=== PATIENT | male | born 1975 | race Caucasian/White ===

== ENCOUNTER 2020-01-22 13:06 | Emergency (ER) | payer OTHER, SELFPAY ==
[2020-01-22 14:01] VITALS: BP 112/80; PULSE 65; RESP 20; TEMP 36.8; O2SAT 99; BMI 29.5
--- NOTE | 2020-01-22 14:30 | HMH.EDUTC ---
[facility] Disposition Clinical Impression: Hordeolum externum (stye) Qualifiers: Laterality: left Eyelid: upper Qualified Code(s): H00.014 - Hordeolum externum left upper eyelid Disposition: Home, Self-Care Condition on Discharge: Good Instructions: Hordeolum, DI for Hordeolum Additional Instructions: Go straight to [facility] and call when you are in the parking lot they are going to work you in Return if needed Further treatment and instructions per [facility] Referrals: Olga Eden [Primary Care Provider] - As needed [facility] [Other] (Go straight to CLinic and call when you get there) Time of Disposition: 14:45 Medical Decision Making - Abilio Inquiry Pt receiving controlled substance: No Abilio was queried for this patient: No Vital Signs: 01/22/20 14:01 Temperature 98.2 F Temperature Source Oral Pulse Rate [Right Brachial] 65 Respiratory Rate 20 Blood Pressure [Right Arm] 112/80 Blood Pressure Mean [Right Arm] 90 Blood Pressure Source [Right Arm] Automatic Cuff Blood Pressure Position [Right Arm] Sitting 02 Sat by Pulse Oximetry 99 Oxygen Delivery Method Room Air - Physician Consults Physician Consulted: Ayleen Time: 14:38 Reason -: Opthalmology Eval/Care Comment/Response: Spoke with Staff and they advised him to come on down clin. and they would work him in [facility] HPI - General Stated complaint: left eye pain Time Seen by Provider: 01/22/20 14:30 Mode of Arrival: Ambulatory Source of Information: Patient Limitations: No Limitations Description of Symptoms (Recalled from Triage Doc. by RN): PATIENT C/O SWELLING TO LEFT EYE FOR APPROX 1 MONTH, HAS GOTTEN PROGRESSIVELY WORSE HEENT Symptoms (Recalled from RN notes): Yes Resp Symptoms (Recalled from RN notes): No Skin Symptoms (Recalled from RN notes): No MS Symptoms (Recalled from RN notes): No Functional Status (Recalled from RN notes): WNL - History of Present Illness Provider Complaint: Patient states that he has been having swelling on and off in his left eyelid for about a month States that he has been using warm compresses and cleaning eye with warm water and baby shampoo but hasnt helped States that today it looked more swollen so he came in to get it checked - Related Data Home Medications Medication Instructions Recorded Confirmed Gabapentin [Gabapentin 300mg Cap] 300 mg PO BID 01/22/20 01/22/20 Meclizine HCl 25 mg PO DAILYP PRN 01/22/20 01/22/20 Sertraline HCl [Zoloft 100mg 100 mg PO DAILY 01/22/20 01/22/20 tablet] Zolpidem Tartrate [Ambien 10mg 10 mg PO HS 01/22/20 01/22/20 tablet] Allergies Allergy/AdvReac Type Severity Reaction Status Date / Time No Known Allergies Allergy Verified 01/22/20 14:09 - Worker's Comp Is this a Worker's Comp case?: No [facility] History - Hepatitis A Screen Drug use history?: No High risk sexual behaviors?: No History of sexually transmitted infection?: No Currently employed?: No Childcare worker?: No Do you have indoor plumbing?: Yes Do you have electricity?: Yes Attestation statement:: This patient has been screened for Hepatitis A risk factors. I have reviewed the patient's past medical history: Yes - Social History Alcohol Intake: never Occupational Status: other ROS Obtained: Yes All systems reviewed & no additional complaints, Yes Systems reviewed as appropriate & no additional complaints - Eyes Eyes: Reports other (Pain and swelling in left eyelid) Physical Exam - General General appearance: alert, in no apparent distress - Eye Eye exam: Present: other (Swelling and redness noted in left eyelid like that commonly seen with Hordeolum) - Respiratory Respiratory exam: Present: normal lung sounds bilaterally. Absent: respiratory distress - Cardiovascular Cardiovascular exam: Present: regular rate, normal rhythm. Absent: JVD - Abdominal Exam Abdominal exam: Present: soft, normal bowel sounds. Absent: distention, tende
[2020-01-22 14:45] VITALS: BP 112/80; PULSE 65; RESP 20; TEMP 36.8; O2SAT 99
== END 2020-01-22 14:50 | disposition home or self-care (01) ==
PROVIDERS: Emergency Provider Nurse Practitioner; PCP Internal Medicine
DX: H00.014 Hordeolum externum left upper eyelid (principal)
CPT/HCPCS: 99201

== ENCOUNTER 2024-11-13 17:03 | Emergency (ER) | payer OTHER, SELFPAY ==
[2024-11-13 17:48] VITALS: BP 135/88; PULSE 66; RESP 17; TEMP 37.2; O2SAT 99; BMI 29.8
--- NOTE | 2024-11-13 17:52 | XR_ITS ---
PROCEDURE INFORMATION: Exam: XR Left Ankle Exam date and time: 11/13/2024 6:21 PM Age: 49 years old Clinical indication: Injury or trauma; Fall; Sprain or strain; Ankle; Left; Additional info: Pain after fall TECHNIQUE: Imaging protocol: Radiologic exam of the left ankle. Views: 3 or more views. COMPARISON: No relevant prior studies available. FINDINGS: Bones/joints: Posterior malleolus fracture of the tibia with approximately 1.7 mm of displacement. Soft tissues: Moderate soft tissue swelling of the ankle. IMPRESSION: Posterior malleolus fracture of the tibia with approximately 1.7 mm of displacement.
--- OUTSIDE RECORDS SUMMARY | 2024-11-13 17:56 | XMS_ITS | Encounter Summary ---
Author Name [facility] [place] [facility] [facility] [place] Address [address] [place] [address] Care Team Providers Care Heel Trimmer Name Role Phone ANAMICHAEL ERIK Primary Care Provider Unavailabl e OLGA EDEN Primary Care Provider Unavailabl e Selected Encounter This section includes the information on record at [place] for the Encounter. Date/Time Encounter Type Encounter Description Reason Pro vider Source Nov 03, 2024 10:30 AM Outpatient Encounter PRIMARY CARE/MEDICINE IHE Encounter Template Text not used by [place] Plan of Treatment: Future Appointments (+ 6 months) and Future Tests (+/- 45 days) The Plan of Treatment section includes future care activities for the patient from all [place] treatmentfacilities. This section includes future appointments and future orders which are active, pending or scheduled. Future Appointments This section includes appointments that were scheduled to occur 6 months from the date of the Encounter, up to a maximum of 20 appointments. The data comes from all [place] treatment facilities. Appointment Date/Time Appointment Type Appointme nt Facility Name November 27, 2024 04:00 PM AMBULATORY - MEDICINE [facility] Social History: Smoking Status (Most current) and Tobacco Use (All prior to encounter date) This section includes the most current, and the historical, smoking and tobacco- related health factors from the [place] facility where the Encounter took place. Current Smoking Status This section includes the most current smoking, or tobacco-related health factor, from the [place] facility where the Encounter took place. Date/Time Current Smoking Status Comment Dean ity November 22, 2022 08:00 AM VA-TOBACCO FORMER USER [facility] Tobacco Use History This section includes a history of the smoking, or tobacco-related health factors, that were collected on or before the date of the Encounter. The data comes from the [place] facility where the Encounter took place. Date/Time Smoking Status/Tobacco Use Comment F acmarcos November 22, 2022 08:00 AM VA-TOBACCO QUIT 5 TO < 15 YRS [facility] Dec 09, 2021 02:30 PM VA-TOBACCO FORMER USER [facility] Dec 09, 2021 02:30 PM VA-TOBACCO QUIT 5 TO < 15 YRS [facility] Sep 01, 2019 09:42 AM VA-TOBACCO FORMER USER [facility] Sep 01, 2019 09:42 AM VA-TOBACCO QUIT 5 TO < 15 YRS [facility] Encounter Notes: All associated encounter notes This section contains the clinical notes associated to the Encounter. Date/Time Encounter Note(s) Provider Source Nov 03, 2024 11:42 AM NURSING NOTE: LOCAL TITLE: NURSING NOTE STANDARD TITLE: NURSING NOTE DATE OF NOTE: NOV 03, 2024@11:42 ENTRY DATE: NOV 03, 2024@11:42:33 AUTHOR: SONIA MOORE EXP COSIGNER: URGENCY: STATUS: COMPLETED Yes - [facility]/Caregiver verbalized understanding of topics discussed and education provided [facility] arrived late, and stated he could not be seen at 1300. stated he would r/s appt online. made aware. Please f/u with to r/s recall appt. /shahida/ SONIA MOORE Licensed Practical Nurse Signed: 11/03/2024 11:43 Receipt Acknowledged By: 11/05/2024 07:41 /shahida/ MASON REYEZ ADVANCED ASSEMBLER [facility] 11/03/2024 12:18 /es/ Olga Eden MD Primary Care Physician SONIA MOORE [facility]
--- OUTSIDE RECORDS SUMMARY | 2024-11-13 17:56 | XMS_ITS | Encounter Summary ---
Author Name [facility] [place] [facility] [place] [facility] [place] Address [address] [place] [address] Care Team Providers Care Searchlight Operator Name Role Phone ANAMICHAEL ERIK Primary Care Provider Unavailabl e HERMAN PECK Primary Care Provider Unavailabl e Selected Encounter This section includes the information on record at [place] for the Encounter. Date/Time Encounter Type Encounter Description Reason Pro vider Source Sep 17, 2024 10:08 AM Outpatient Encounter ADMIN PAT ACTIVTIES (MASNONCT) IHE Encounter Template Text not used by [place] Plan of Treatment: Future Appointments (+ 6 months) and Future Tests (+/- 45 days) The Plan of Treatment section includes future care activities for the patient from all [place] treatmentfacilities. This section includes future appointments and future orders which are active, pending or scheduled. Future Appointments This section includes appointments that were scheduled to occur 6 months from the date of the Encounter, up to a maximum of 20 appointments. The data comes from all [place] treatment facilities. Appointment Date/Time Appointment Type Appointme nt Facility Name November 27, 2024 04:00 PM AMBULATORY - MEDICINE [facility] Encounter Notes: All associated encounter notes This section contains the clinical notes associated to the Encounter. Date/Time Encounter Note(s) Provider Source Sep 17, 2024 10:08 AM ADMINISTRATIVE NOT E: LOCAL TITLE: CLERICAL/ADMIN NOTE STANDARD TITLE: ADMINISTRATIVE NOTE DATE OF NOTE: SEP 17, 2024@10:08 ENTRY DATE: SEP 17, 2024@10:08:13 AUTHOR: MASON REYEZ EXP COSIGNER: URGENCY: STATUS: COMPLETED Called and scheduled pt for due recall with pcp. Pt wanted 4-14@1330 /es/ MASON REYEZ ADVANCED BUSINESS MACHINE MECHANIC Signed: 09/17/2024 10:11 MASON REYEZ-MELANIE [facility]
--- OUTSIDE RECORDS SUMMARY | 2024-11-13 17:56 | XMS_ITS | Encounter Summary ---
Author Name [facility] [facility] [place] [facility] [place] Address [address] [place] [address] Care Team Providers Care Energy Project Engineer Name Role Phone ANAERIK RODRIGUEZ Primary Care Provider Unavailabl HERMAN Walton Primary Care Provider Unavailabl carlos Selected Encounter This section includes the information on record at [place] for the Encounter. Date/Time Encounter Type Encounter Description Reason Pro vider Source Feb 13, 2024 02:41 PM Outpatient Encounter DENTAL IHE Encounter Template Text not used by [place] Plan of Treatment: Future Appointments (+ 6 months) and Future Tests (+/- 45 days) The Plan of Treatment section includes future care activities for the patient from all [place] treatmentfacilities. This section includes future appointments and future orders which are active, pending or scheduled. Future Appointments This section includes appointments that were scheduled to occur 6 months from the date of the Encounter, up to a maximum of 20 appointments. The data comes from all [place] treatment facilities. Appointment Date/Time Appointment Type Appointme nt Facility Name Jun 11, 2024 01:15 PM AMBULATORY - MEDICINE PSYCHIATRIC Active, Pending, and Scheduled Orders This section includes a listing of several types of active, pending, and scheduled orders, including clinic medications orders, diagnostic test orders, procedure orders and consult orders; where the start date of the order is 45 days before the date of the Encounter or 45 days after the date of theEncounter. The data comes from all [place] treatment facilities. Test Date/Time Test Type Test Details Facility Name Feb 20, 2024 12:00 AM Laboratory - Chemi stry Order OCCULT BLOOD FIT X1 SCREEN STOOL FECES SP ONCE [facility] Lab Results: +/- 30 days of the encounter This section includes the Chemistry and Hematology Lab Results on record with [place] for the patient. Radiology Reports and Pathology Reports are provided separately, in subsequent sections. Lab Results This section contains the Chemistry/Hematology Results that were resulted 30 days before or 30 daysafter the date of the Encounter. Date/Time Source Result Type Result - Unit Interpretation Reference Range Specimen Type Comment Feb 07, 2024 11:13 AM [facility] DRUG SCREEN IN-HOUSE ROUTINE URINE Specimen T ype: URINE Comment: Screening method results are unconfirmed and are for medical use only. Unconfirmed screening results must not be used for non-medical purposes. Opiates test most sensitive for morphine, codeine and heroin and less sensitive for hydrocodone and hydromorphone where higher concentrations are needed for cut-off detection. Ordering Provider: JAROCHO PENA Report Released Date/Time: Feb 06, 2024 08:48 AM Reporting Lab: [address] [id number] Performing Lab: [address] [address] TETRAHYDROCANNABINOL SCREEN POS AMPHETAMINE SCR NEG BARBITURATES SCR NEG BENZODIAZEPINES SCR NEG COCAINE METABOLITE SCR NEG OPIATES SCR NEG METHADONE SCR NEG OXYCODONE SCR NEG Social History: Smoking Status (Most current) and Tobacco Use (All prior to encounter date) This section includes the most current, and the historical, smoking and tobacco- related health factors from the [place] facility where the Encounter took place. Current Smoking Status This section includes the most current smoking, or tobacco-related health factor, from the [place] facility where the Encounter took place. Date/Time Current Smoking Status Comment Facil ity November 22, 2022 08:00 AM VA-TOBACCO FORMER USER [facility] Tobacco Use History This section includes a history of the smoking, or tobacco-related health factors, that were collected on or before the date of the Encounter. The data comes from the [place] facility where the Encounter took place. Date/Time Smoking Status/Tobacco Use Comment F acility November 22, 2022 08:00 AM VA-TOBACCO QUIT 5 TO < 15 YRS [facility] Dec 09, 2021 02:30 PM VA-TOBACCO FORMER USER [facility] Dec 09, 2021 02:30 PM VA-TOBACCO QUIT 5 TO < 15 YRS [facility] Sep 01, 2019 09:42 AM VA-TOBACCO FORMER USER [facility] Sep 01, 2019 09:42 AM VA-TOBACCO QUIT 5 TO < 15 YRS [facility] Encounter Notes: All associated encounter notes This section contains the clinical notes associated to the Encounter. Date/Time Encounter Note(s) Provider Source Feb 13, 2024 02:41 PM LETTERS: LOCAL TITLE: SPECIALTY CONTACT LETTER STANDARD TITLE: LETTERS DATE OF NOTE: FEB 13, 2024@14:41 ENTRY DATE: FEB 13, 2024@14:41:16 AUTHOR: BOLA RICHARDS COSIGNER: URGENCY: STATUS: COMPLETED [facility] [address] [place] [address] KAYA HEWITT [address] [address] FEB 13, 2024 Dear KAYA HEWITT III, We have been unable to contact you by telephone to schedule an appointment in our Dental clinic. Your health and well-being are important to us. Please call us at or . Select Option #2 and then #3. We look forward to hearing from you soon. Sincerely yours, Dental [facility] RICHARDS [facility]
--- OUTSIDE RECORDS SUMMARY | 2024-11-13 17:56 | XMS_ITS | Encounter Summary ---
Author Name [facility] [place] [facility] [place] [facility] [place] [facility] [place] Address [address] [place] [address] Care Team Providers Care Silk Printer Name Role Phone ANAMICHAEL ERIK Primary Care Provider Unavailabl e OLGA EDEN Primary Care Provider Unavailabl e Selected Encounter This section includes the information on record at [place] for the Encounter. Date/Time Encounter Type Encounter Description Reason Pro vider Source Oct 08, 2024 01:46 PM Outpatient Encounter ADMIN PAT ACTIVTIES (MASNONCT) IHE Encounter Template Text not used by [place] Plan of Treatment: Future Appointments (+ 6 months) and Future Tests (+/- 45 days) The Plan of Treatment section includes future care activities for the patient from all [place] treatmentfacilities. This section includes future appointments and future orders which are active, pending or scheduled. Future Appointments This section includes appointments that were scheduled to occur 6 months from the date of the Encounter, up to a maximum of 20 appointments. The data comes from all [place] treatment facilities. Appointment Date/Time Appointment Type Appointme nt Facility Name November 27, 2024 04:00 PM AMBULATORY - MEDICINE [facility] Encounter Notes: All associated encounter notes This section contains the clinical notes associated to the Encounter. Date/Time Encounter Note(s) Provider Source Oct 08, 2024 01:46 PM PHARMACY MEDICATIO N MGT NOTE: LOCAL TITLE: CONTROLLED SUBSTANCE RENEWAL REQUEST STANDARD TITLE: PHARMACY MEDICATION MGT NOTE DATE OF NOTE: OCT 08, 2024@13:46 ENTRY DATE: OCT 08, 2024@13:46:09 AUTHOR: BEATRICE SMITH EXP COSIGNER: URGENCY: STATUS: COMPLETED Rx requested - ZOLPIDEM TARTRATE 10MG TAB Last fill date - 08.16.24 Progress Note Date Title Author (and Author's Title) SEP 24, 2023@13:24 PC PROGRESS NOTE OLGA EDEN (PRIMARY CARE ST TRAV/PDMP Progress Note Date Title Author (and Author's Title) SEP 12, 2024@10:21:45STATE PRESCRIPTION ROLANDO OLGA EDEN (PRIMARY CARE ST No data available for: NALOXONE NALOXONE AUTOINJECTOR IM RESCUE NALOXONE NASAL RESCUE 4MG NALOXONE NASAL RESCUE 8MG NALOXONE NASAL RESCUE Mail ID signer [facility] alert sent to OLGA EDEN, Primary Care Provider Comments: DRUG SCREEN: ONLY Drug Screens within the prior 12 months will be listed Drug Screen: Collection DT Specimen Test Name Result Units Ref Range 02/07/2024 11:13 URINE !! THC SCR POS Ref: Cutoff < 50 02/07/2024 11:13 URINE !! AMPHETAMINE SCR NEG Ref: Cutoff < 1000 02/07/2024 11:13 URINE !! BARBITURATES SCR NEG Ref: Cutoff < 200 02/07/2024 11:13 URINE !! BENZODIAZEPINES S NEG Ref: Cutoff < 200 02/07/2024 11:13 URINE !! COCAINu NEG Ref: Cutoff < 300 02/07/2024 11:13 URINE !! OPIATES SCR NEG Ref: Cutoff < 300 02/07/2024 11:13 URINE !! METHADONE SCR NEG Ref: Cutoff < 300 02/07/2024 11:13 URINE !! OXYCODONE SCR NEG Ref: Cutoff < 200 !! Indicates COMMENTS AVAILABLE...Refer to Interim Lab Report. /shahida/ Beatrice Smith CPhT Pharmacy Non Destructive Testing Scientist Signed: 10/08/2024 13:46 Receipt Acknowledged By: 10/08/2024 14:02 /shahida/ Olga Eden MD Primary Care Physician BEATRICE SMITH-Marilee [facility]
--- OUTSIDE RECORDS SUMMARY | 2024-11-13 17:56 | XMS_ITS | Encounter Summary ---
Author Name [facility] [place] [facility] [place] Address [address] [place] [address] Care Team Providers Care Tricot Knitter Name Role Phone ANAMICHAEL ERIK Primary Care Provider Unavailabl e OLGA EDEN Primary Care Provider Unavailabl e Selected Encounter This section includes the information on record at [place] for the Encounter. Date/Time Encounter Type Encounter Description Reason Provider Source December 05, 2023 02:30 PM EXTRACTION ERUPTED TOOTH/EXR DENTAL ICD-10-CM K02.53 Dental caries on pit and fissure surface penetrat into pulp GALECIO VERA,DANTE IHE Encounter Template Text not used by [place] Assessments - Encounter Diagnoses This section includes the primary and secondary diagnoses documented for the Encounter. Date/Time Primary/Secondary Diagnosis Diagnosis Name Provider Source December 05, 2023 03:33 PM PRIMARY Dental caries on pit and fissure surface penetrat into pulp GALECIO VERA,DANTE [facility] Plan of Treatment: Future Appointments (+ 6 months) and Future Tests (+/- 45 days) The Plan of Treatment section includes future care activities for the patient from all [place] treatmentfacilities. This section includes future appointments and future orders which are active, pending or scheduled. Future Appointments This section includes appointments that were scheduled to occur 6 months from the date of the Encounter, up to a maximum of 20 appointments. The data comes from all [place] treatment facilities. Appointment Date/Time Appointment Type Appointme nt Facility Name Feb 11, 2024 03:00 PM AMBULATORY - NONE [facility] Vital Signs: All taken on the encounter date This section contains inpatient and outpatient Vital Signs collected on the date of the Encounter. Date/Time Temperature Pulse Blood Pressure Respiratory Rate SP02 Pain Height Weight Body Mass Index Source December 05, 2023 03:31 PM 67 113/92 98 [place] [facility] Social History: Smoking Status (Most current) and Tobacco Use (All prior to encounter date) This section includes the most current, and the historical, smoking and tobacco- related health factors from the [place] facility where the Encounter took place. Current Smoking Status This section includes the most current smoking, or tobacco-related health factor, from the [place] facility where the Encounter took place. Date/Time Current Smoking Status Comment Facil ity November 22, 2022 08:00 AM VA-TOBACCO FORMER USER [facility] Tobacco Use History This section includes a history of the smoking, or tobacco-related health factors, that were collected on or before the date of the Encounter. The data comes from the [place] facility where the Encounter took place. Date/Time Smoking Status/Tobacco Use Comment F acility November 22, 2022 08:00 AM VA-TOBACCO QUIT 5 TO < 15 YRS [facility] Dec 09, 2021 02:30 PM VA-TOBACCO FORMER USER [facility] Dec 09, 2021 02:30 PM VA-TOBACCO QUIT 5 TO < 15 YRS [facility] Sep 01, 2019 09:42 AM VA-TOBACCO FORMER USER [facility] Sep 01, 2019 09:42 AM VA-TOBACCO QUIT 5 TO < 15 YRS [facility] Encounter Notes: All associated encounter notes This section contains the clinical notes associated to the Encounter. Date/Time Encounter Note(s) Provider Source Feb 21, 2024 12:41 PM ACCOUNTING OF DISC LOSURES NOTE: LOCAL TITLE: STATE PRESCRIPTION DRUG MONITORING PROGRAM STANDARD TITLE: ACCOUNTING OF DISCLOSURES NOTE DATE OF NOTE: FEB 21, 2024@12:41:54 ENTRY DATE: FEB 21, 2024@12:41:54 AUTHOR: EDEN,OLGA K EXP COSIGNER: URGENCY: STATUS: COMPLETED This PDMP query was submitted by Olga Eden MD. The clinical justification for this PDMP query is to review controlled substances prescribed outside of the [facility], and any additional information that may become available, as an important component of standard clinical care, and in accordance with [facility] policy. Patient information was shared with the PDMP Appriss [place]. No prescription(s) for controlled substances outside the [facility] were found in the last 90 days. 02/12/2024 2 02/08/2024 Zolpidem Tartrate 10 Mg Tablet 10.00 10 Vi Pat [id number] [place] (0086) 0 - [place] 01/08/2024 2 01/04/2024 Zolpidem Tartrate 10 Mg Tablet 30.00 30 [place] [id number] [place] (0086) 0 - [place] 12/07/2023 2 10/08/2023 Zolpidem Tartrate 10 Mg Tablet 30.00 30 Na Mul [id number] [place] (0086) 0 - [place] 10/23/2023 2 10/08/2023 Zolpidem Tartrate 10 Mg Tablet 30.00 30 Na Mul [id number] [place] (0086) 0 - [place] 10/10/2023 2 10/08/2023 Zolpidem Tartrate 10 Mg Tablet 30.00 30 Na Mul [id number] [place] (0086[place] - [place] 08/10/2023 2 04/03/2023 Zolpidem Tartrate 10 Mg Tablet 30.00 30 Na Mul [id number] [place] (0086) 0 - [place] 07/28/2023 2 04/03/2023 Zolpidem Tartrate 10 Mg Tablet 30.00 30 Na Mul [id number] [place] (0086[place] - [place] 07/04/2023 2 04/03/2023 Zolpidem Tartrate 10 Mg Tablet 30.00 30 Na Mul [id number] [place] (0086) [place] - [place] 05/28/2023 2 04/03/2023 Zolpidem Tartrate 10 Mg Tablet 30.00 30 Na Mul [id number] [place] (0086[place] - [place] 04/17/2023 2 04/03/2023 Zolpidem Tartrate 10 Mg Tablet 30.00 30 Na Mul [id number] [place] (0086) [place] - [place] 04/04/2023 2 04/03/2023 Zolpidem Tartrate 10 Mg Tablet 30.00 30 Na Mul [id number] [place] (0086) [place] - [place] 03/06/2023 2 10/05/2022 Zolpidem Tartrate 10 Mg Tablet 30.00 30 Na Mul [id number] [place] (0086[place] - [place] 01/16/2023 2 10/05/2022 Zolpidem Tartrate 10 Mg Tablet 30.00 30 Na Mul [id number] [place] (0086) [place] - [place] 12/15/2022 2 10/05/2022 Zolpidem Tartrate 10 Mg Tablet 30.00 30 Na Mul [id number] [place] (0086[place] 12/05/2022 2 10/05/2022 Zolpidem Tartrate 10 Mg Tablet 30.00 30 Na Mul [id number] [place] (0086[place] - [place] 10/17/2022 2 10/05/2022 Zolpidem Tartrate 10 Mg Tablet 30.00 30 Na [facility] [id number] [place] (0086) [place] - [place] 10/09/2022 2 10/05/2022 Zolpidem Tartrate 10 Mg Tablet 30.00 30 Na Mul [id number] [place] (0086[place] 0 - [place] 08/10/2022 2 03/24/2022 Zolpidem Tartrate 10 Mg Tablet 30.00 30 Na Mul [id number] [place] (0086[place] 0 - [place] 07/11/2022 1 03/24/2022 Zolpidem Tartrate 10 Mg Tablet 30.00 30 Na Mul [id number] [place] (0086[place] 0 - [place] 07/06/2022 1 03/24/2022 Zolpidem Tartrate 10 Mg Tablet 30.00 30 Na Mul [id number] [place] (0086) 0 - [place] 05/19/2022 1 03/24/2022 Zolpidem Tartrate 10 Mg Tablet 30.00 30 Na Mul [id number] [place] (0086) 0 - [place] 2022 1 03/24/2022 Zolpidem Tartrate 10 Mg Tablet 30.00 30 Na Mul [id number] [place] (0086) 0 - [place] 03/29/2022 1 03/24/2022 Zolpidem Tartrate 10 Mg Tablet 30.00 30 Na [facility] [id number] [place] (0086) 0 - [place] *Per CDC guidance, the MME conversion factors prescribed or provided as part of the medication-assisted treatment for opioid use disorder should not be used to benchmark against dosage thresholds meant for opioids prescribed for pain. Buprenorphine products have no agreed upon morphine equivalency, and as partial opioid agonists, are not expected to be associated with overdose risk in the same dose-dependent manner as doses for full agonist opioids. MME = morphine milligram equivalents. mg = dose in milligrams. Providers /es/ Olga Eden MD Primary Care Physician Signed: 02/21/2024 12:42 OLGA EDEN [facility] December 05, 2023 03:37 PM CONSENT: LOCAL TITLE: CONSENT CLINICAL SCANNED STANDARD TITLE: CONSENT DATE OF NOTE: DECEMBER 05, 2023@15:37 ENTRY DATE: DEC 10, 2023@15:37:46 AUTHOR: CHAKA EVANS EXP COSIGNER: URGENCY: STATUS: COMPLETED The scanned document may be viewed in [facility]. /shahida/ CHAKA EVANS DRAWING INSTRUCTOR Signed: 12/10/2023 15:38 CHAKA EVANS [facility] December 05, 2023 03:31 PM ORAL SURGERY NOTE: LOCAL TITLE: DENTAL ORAL SURGERY NOTE STANDARD TITLE: ORAL SURGERY NOTE DATE OF NOTE: DECEMBER 05, 2023@15:31 ENTRY DATE: DECEMBER 05, 2023@15:33:22 AUTHOR: DANTE FERRER EXP COSIGNER: URGENCY: STATUS: COMPLETED Patient Name: KAYA HEWITT III, : 1975, Age: 48 Visit: V: December 05, 2023@14:30 KOBE DEN OS SED LD. Primary PCE Diagnosis: K02.53 (Dental caries on pit and fissure surface penetrating into pulp). Dental Category: 15-OPC, Class IV. Treatment Status: Active. Planned Procedures: Unsequenced (D2330) RESIN ONE SURFACE-ANTERIOR: 6(F). DX: (). (D2330) RESIN ONE SURFACE-ANTERIOR: 7(M). DX: (). (D2331) RESIN TWO SURFACES-ANTERIOR: 9(MF). DX: (). (D2332) RESIN THREE SURFACES-ANTERIO: 8(MFD). DX: (). (D239) POST 1 SRFC RESINBASED CMPST: 29(B). DX: (). (D2391) POST 1 SRFC RESINBASED CMPST: 5(B). DX: (). (D7140) EXTRACTION ERUPTED TOOTH/EXR: 16. DX: (). Completed Care: (D7140) EXTRACTION ERUPTED TOOTH/EXR. Tooth: 20. DX: K02.53 Dental Caries on Pit and Fissure Surface Penetrating into Pulp (D7140) EXTRACTION ERUPTED TOOTH/EXR. Tooth: 18. DX: K02.53 Dental Caries on Pit and Fissure Surface Penetrating into Pulp If indicated, obtained informed consent for the proposed procedure by explaining procedure, alternatives, attendant risks, and potential complications. Gave patient opportunity for questions. The patient was alert and awake. The patient indicated understanding and desire to proceed. The patient further understands that the procedure is being performed for their benefit, and that if teeth are removed the [place] is not necessarily obligated to provide tooth replacements. A witnessed hard copy SP522 was signed by the patient and treating dentist, and placed in the dental record. Appropriate written and/or oral post-operative instructions were provided. Attending: Alli Valles was physically present for the [place] portion of the procedure. Yes Do you have pain today? Yes If yes, on a scale of 0 to 10 what is the pain level now? 5 An assessment identified: Non-restorable grossly carious #18,20 BP: 113/92 Pulse: 67 ACTIVE MEDICATIONS: Medicine/Supplies Qty Last Filled 1) ZOLPIDEM TARTRATE 10MG TAB: TAKE ONE TABLET BY 30 DECEMBER 05, 2023 MOUTH AT BEDTIME NEEDED FOR SLEEP 2) CYANOCOBALAMIN 500MCG TAB: TAKE ONE TABLET BY 100 MAY 02, 2023 MOUTH DAILY FOR VITAMIN B12 SUPPLEMENT 3) GABAPENTIN 300MG CAP: TAKE ONE CAPSULE BY MOUTH 60 NOVEMBER 08, 2023 TWICE A DAY FOR PAIN Active Non-VA Meds ===== NONE Allergies: Patient has answered NKA Reviewed current medications with patient/signficant other, patient/significant other reports patient taking ALL VA, Non VA & OTC medications as listed on CPRS medication tab outpatient section. Procedures: Local Anesthetic utilized for procedure. # carpules: 2 Type: 1.8 ml Lidocaine HCL 2% 1/1:100,000 Epinephrine Simple extractions using elevators and forceps. Curretage sockets. Gelfoam packed, 3-0 chromic gut suture. Gauze pack placed, Post-op instructions given, Patient stable and hemostatic Additional comments: Procedure well tolerated by patient [id number]/99-T - - - - - - - - - - - - - - - - - - - - - - - - - - - - - - /shahida/ DANTE GONZALES [facility] dentist Signed: 12/05/2023 15:33 DANTE FERRER [facility] December 05, 2023 02:51 PM PREPROCEDURE NOTE: LOCAL TITLE: PRE PROCEDURE PROGRESS NOTE STANDARD TITLE: PREPROCEDURE NOTE DATE OF NOTE: DECEMBER 05, 2023@14:51 ENTRY DATE: DECEMBER 05, 2023@14:51:56 AUTHOR: KINJAL DODD COSIGNER: URGENCY: STATUS: COMPLETED History & Physical dated within 30 days Yes Interval/Focus H&P Note within 24 hours of planned procedure N/A Attending note within 30 days N/A Step 1: Consent Form checked for: Patient's Full Name: Yes Procedure Site: Yes Name of Procedure: Yes ext #18 and #20 Reason for Procedure: no Restorable Teeth Per [place] Dentist Step 2: Privileges verified: Yes COMMENTS: Step 2 Done at 2pm Step 3: Operative site marked: Yes Not Applicable COMMENTS: ref to Dental DRM Plus and Dental x-rays Step 4: Patient States: Their Full Name Yes Full SSN or Date of Yes Site for the Procedure Yes Step [address] Carson at 2:47pm Warm Handoff communicated to N/A, RN. Time: /shahida/ KINJAL DODD Dental Wire Winding Machine Operator Signed: 12/05/2023 14:54 KINJAL DODD [facility]
--- OUTSIDE RECORDS SUMMARY | 2024-11-13 17:56 | XMS_ITS ---
Author Name [facility] [place] Organization [facility] [place] [place] Address [address] [place] [address] Care Team Providers Care Vortex Operator Name Role Phone ANAMICHAEL ERIK Primary Care Provider Unavailabl e OLGA EDEN Primary Care Provider Unavailabl e Selected Encounter This section includes the information on record at [place] for the Encounter. Date/Time Encounter Type Encounter Description Reason Pro vider Source May 12, 2024 06:05 AM Outpatient Encounter ADMIN PAT ACTIVTIES (MASNONCT) IHE Encounter Template Text not used by [place] Plan of Treatment: Future Appointments (+ 6 months) and Future Tests (+/- 45 days) The Plan of Treatment section includes future care activities for the patient from all [place] treatmentfacilities. This section includes future appointments and future orders which are active, pending or scheduled. Future Appointments This section includes appointments that were scheduled to occur 6 months from the date of the Encounter, up to a maximum of 20 appointments. The data comes from all [place] treatment facilities. Appointment Date/Time Appointment Type Appointme nt Facility Name Jun 11, 2024 01:15 PM AMBULATORY - MEDICINE [facility] Encounter Notes: All associated encounter notes This section contains the clinical notes associated to the Encounter. Date/Time Encounter Note(s) Provider Source May 12, 2024 06:05 AM PHARMACY MEDICATIO N MGT NOTE: LOCAL TITLE: CONTROLLED SUBSTANCE RENEWAL REQUEST STANDARD TITLE: PHARMACY MEDICATION MGT NOTE DATE OF NOTE: MAY 12, 2024@06:05 ENTRY DATE: MAY 12, 2024@06:05:59 AUTHOR: BOB OBRIEN EXP COSIGNER: URGENCY: STATUS: COMPLETED Rx requested - zolpidem Last fill date - 04/11/24 Progress Note Date Title Author (and Author's Title) SEP 24, 2023@13:24 PC PROGRESS NOTE OLGA EDEN (PRIMARY CARE ST TRAV/PDMP Progress Note Date Title Author (and Author's Title) MAR 11, 2024@08:43:35STATE PRESCRIPTION ROLANDO OLGA EDEN (PRIMARY CARE ST [...] COMMENTS AVAILABLE...Refer to Interim Lab Report. /shahida/ BOB OBRIEN CLINICAL PROCESS PLANT OPERATOR Signed: 05/12/2024 06:06 Receipt Acknowledged By: 05/12/2024 09:00 /shahida/ Olga Eden MD Primary Care Physician [facility]EN[facility]
--- NOTE | 2024-11-13 17:57 | PC.NURSE ---
pt rounded on no needs at this time.
--- OUTSIDE RECORDS SUMMARY | 2024-11-13 17:57 | XMS_ITS | Encounter Summary ---
Author Name [facility] [place] [facility] [place] Organization [facility] [place] Address [address] [place] [address] Care Team Providers Care Anglesmith Name Role Phone ANAMICHAEL ERIK Primary Care Provider Unavailabl e HERMAN PECK Primary Care Provider Unavailabl e Selected Encounter This section includes the information on record at [place] for the Encounter. Date/Time Encounter Type Encounter Description Reason Pro vider Source Mar 31, 2024 12:19 PM Outpatient Encounter ADMIN PAT ACTIVTIES (MASNONCT) IHE Encounter Template Text not used by [place] Plan of Treatment: Future Appointments (+ 6 months) and Future Tests (+/- 45 days) The Plan of Treatment section includes future care activities for the patient from all [place] treatmentfacilities. This section includes future appointments and future orders which are active, pending or scheduled. Future Appointments This section includes appointments that were scheduled to occur 6 months from the date of the Encounter, up to a maximum of 20 appointments. The data comes from all [place] treatment facilities. Appointment Date/Time Appointment Type Appointme nt Facility Name Jun 11, 2024 01:15 PM AMBULATORY - MEDICINE [facility] Active, Pending, and Scheduled Orders This section includes a listing of several types of active, pending, and scheduled orders, including clinic medications orders, diagnostic test orders, procedure orders and consult orders; where the start date of the order is 45 days before the date of the Encounter or 45 days after the date of theEncounter. The data comes from all [place] treatment facilities. Test Date/Time Test Type Test Details Facility Name Feb 20, 2024 12:00 AM Laboratory - Chemi stry Order OCCULT BLOOD FIT X1 SCREEN STOOL FECES SP ONCE [facility] Encounter Notes: All associated encounter notes This section contains the clinical notes associated to the Encounter. Date/Time Encounter Note(s) Provider Source Mar 31, 2024 12:19 PM PHARMACY NOTE: LOCAL TITLE: SIGNATURE READY PHARMACY RENEWAL NOTE STANDARD TITLE: PHARMACY NOTE DATE OF NOTE: MAR 31, 2024@12:19 ENTRY DATE: MAR 31, 2024@12:19:43 AUTHOR: GALILEA HALE EXP COSIGNER: URGENCY: STATUS: COMPLETED Signature Ready Order Progress Note Date Title Author (and Author's Title) SEP 24, 2023@13:24 PC PROGRESS NOTE HERMAN PECK (PRIMARY CARE ST 1) Rx#: [id number] SERTRALINE HCL 100MG TAB Original Prescriber: FRIDA UMANA Pharmacy received request via: Secure Message /shahida/ GALILEA HALE Director Of Product Development (jigger machine operator) Signed: 03/31/2024 12:20 GALILEA HALE[facility]
--- OUTSIDE RECORDS SUMMARY | 2024-11-13 17:57 | XMS_ITS | Encounter Summary ---
Author Name [facility] of [facility] [place] Organization [facility] [place] Address [address] [place] [address] Care Team Providers Care Wool Hat Sanding Machine Operator Name Role Phone ANAMICHAEL ERIK Primary Care Provider Unavailabl e OLGA PECK Primary Care Provider Unavailabl e Selected Encounter This section includes the information on record at [place] for the Encounter. Date/Time Encounter Type Encounter Description Reason Pro vider Source Jun 11, 2024 08:46 PM Outpatient Encounter ADMIN PAT ACTIVTIES (MASNONCT) IHE Encounter Template Text not used by [place] Plan of Treatment: Future Appointments (+ 6 months) and Future Tests (+/- 45 days) The Plan of Treatment section includes future care activities for the patient from all [place] treatmentfacilities. This section includes future appointments and future orders which are active, pending or scheduled. Future Appointments This section includes appointments that were scheduled to occur 6 months from the date of the Encounter, up to a maximum of 20 appointments. The data comes from all [place] treatment facilities. Appointment Date/Time Appointment Type Appointme nt Facility Name November 27, 2024 04:00 PM AMBULATORY - MEDICINE [facility] Encounter Notes: All associated encounter notes This section contains the clinical notes associated to the Encounter. Date/Time Encounter Note(s) Provider Source Jun 11, 2024 08:46 PM PHARMACY MEDICATIO N MGT NOTE: LOCAL TITLE: CONTROLLED SUBSTANCE RENEWAL REQUEST STANDARD TITLE: PHARMACY MEDICATION MGT NOTE DATE OF NOTE: JUN 11, 2024@20:46 ENTRY DATE: JUN 11, 2024@20:46:35 AUTHOR: GALILEA HALE EXP COSIGNER: URGENCY: STATUS: COMPLETED Rx requested - GABAPENTIN 300MG CAP Last fill date - 05/11/24 Progress Note Date Title Author (and Author's Title) SEP 24, 2023@13:24 PC PROGRESS NOTE OLGA PECK (PRIMARY CARE ST TRAV/PDMP Progress Note Date Title Author (and Author's Title) MAY 12, 2024@09:01:48STATE PRESCRIPTION ROLANDO OLGA PECK (PRIMARY CARE ST No data available for: NALOXONE NALOXONE AUTOINJECTOR IM RESCUE NALOXONE NASAL RESCUE 4MG NALOXONE NASAL RESCUE 8MG NALOXONE NASAL RESCUE Mail ID signer VA alert sent to OLGA PECK, Primary Care Provider Comments: DRUG SCREEN: ONLY [...] COMMENTS AVAILABLE...Refer to Interim Lab Report. /shahida/ GALILEA HALE Insulator Helper (attendant child activity) Signed: 06/11/2024 20:46 Receipt Acknowledged By: 06/12/2024 08:38 /shahida/ Olga Peck MD Primary Care Physician GALILEA HALE[facility]
--- OUTSIDE RECORDS SUMMARY | 2024-11-13 17:57 | XMS_ITS | Encounter Summary ---
Author Name [facility] [place] [facility] [place] Organization [facility] [place] Address [address] [place] [address] Care Team Providers Care Ferry Terminal Agent Name Role Phone ANAMICHAEL ERIK Primary Care Provider Unavailabl e OLAG EDEN Primary Care Provider Unavailabl e Selected Encounter This section includes the information on record at [place] for the Encounter. Date/Time Encounter Type Encounter Description Reason Pro vider Source Oct 20, 2024 01:30 PM Outpatient Encounter PRIMARY CARE/MEDICINE I[facility] Encounter Template [...] 27, 2024 04:00 PM AMBULATORY - MEDICINE [facility] Social History: Smoking Status (Most current) and Tobacco Use (All prior to encounter date) This section includes the most current, and the historical, smoking and tobacco- related health factors from the [place] facility where the Encounter took place. Current Smoking Status This section includes the most current smoking, or tobacco-related health factor, from the [place] facility where the Encounter took place. Date/Time Current Smoking Status Comment Dean ity November 22, 2022 08:00 AM VA-TOBACCO FORMER USER [facility] Tobacco Use History This section includes a history of the smoking, or tobacco-related health factors, that were collected on or before the date of the Encounter. The data comes from the [place] facility where the Encounter took place. Date/Time Smoking Status/Tobacco Use Comment F acmarcos November 22, 2022 08:00 AM VA-TOBACCO QUIT 5 TO < 15 YRS [facility] Dec 09, 2021 02:30 PM VA-TOBACCO FORMER USER [facility] Dec 09, 2021 02:30 PM VA-TOBACCO QUIT 5 TO < 15 YRS [facility] Sep 01, 2019 09:42 AM VA-TOBACCO FORMER USER [facility] Sep 01, 2019 09:42 AM VA-TOBACCO QUIT 5 TO < 15 YRS [facility] Encounter Notes: All associated encounter notes This section contains the clinical notes associated to the Encounter. Date/Time Encounter Note(s) Provider Source Oct 08, 2024 02:02 PM ACCOUNTING OF DISC LOSURES NOTE: LOCAL TITLE: STATE PRESCRIPTION DRUG MONITORING PROGRAM STANDARD TITLE: ACCOUNTING OF DISCLOSURES NOTE DATE OF NOTE: OCT 08, 2024@14:02:45 ENTRY DATE: OCT 08, 2024@14:02:45 AUTHOR: OLGA EEDN EXP COSIGNER: URGENCY: STATUS: COMPLETED This PDMP query was submitted by Olga Eden MD. The clinical justification for this PDMP query is to review controlled substances prescribed outside of the [place], and any additional information that may become available, as an important component of standard clinical care, and in accordance with [facility] policy. Patient information was shared with the PDMP Appriss [place]. No prescription(s) for controlled substances outside the [place] were found in the last 90 days. /shahida/ Olga Eden MD Primary Care Physician Signed: 10/08/2024 14:02 OLGA EDEN [facility]
--- OUTSIDE RECORDS SUMMARY | 2024-11-13 17:57 | XMS_ITS | Encounter Summary ---
Author Name [facility] [place] [facility] [place] Organization [facility] [place] Address [address] [place] [address] Care Team Providers Care Neighborhood Coordinator Name Role Phone ANAMICHAEL ERIK Primary Care Provider Unavailabl e OLGA PECK Primary Care Provider Unavailabl e Selected Encounter This section includes the information on record at [place] for the Encounter. Date/Time Encounter Type Encounter Description Reason Pro vider Source Oct 13, 2024 09:01 PM Outpatient Encounter ADMIN PAT ACTIVTIES (MASNONCT) IHE Encounter Template Text not used by [place] Plan of Treatment: Future Appointments (+ 6 months) and Future Tests (+/- 45 days) The Plan of Treatment section includes future care activities for the patient from all [place] treatmentfacilities. This section includes future appointments and future orders which are active, pending or scheduled. Future Appointments This section includes appointments that were scheduled to occur 6 months from the date of the Encounter, up to a maximum of 20 appointments. The data comes from all [place] treatment facilities. Appointment Date/Time Appointment Type Appointme nt Facility Name November 27, 2024 04:00 PM AMBULATORY - MEDICINE [facility] Encounter Notes: All associated encounter notes This section contains the clinical notes associated to the Encounter. Date/Time Encounter Note(s) Provider Source Oct 13, 2024 09:01 PM PHARMACY MEDICATIO N MGT NOTE: LOCAL TITLE: CONTROLLED SUBSTANCE RENEWAL REQUEST STANDARD TITLE: PHARMACY MEDICATION MGT NOTE DATE OF NOTE: OCT 13, 2024@21:01 ENTRY DATE: OCT 13, 2024@21:01:23 AUTHOR: GALILEA HALE EXP COSIGNER: URGENCY: STATUS: COMPLETED Rx requested - GABAPENTIN 300MG CAP Last fill date - 09/12/24 Progress Note Date Title Author (and Author's Title) SEP 24, 2023@13:24 PC PROGRESS NOTE OLGA PECK (PRIMARY CARE ST TRAV/PDMP Progress Note Date Title Author (and Author's Title) OCT 08, 2024@14:02:45STATE PRESCRIPTION ROLANDO OLGA PECK (PRIMARY CARE ST [...] to Interim Lab Report. /shahida/ GALILEA HALE Manager Publishing (adult and pediatric neurologist) Signed: 10/13/2024 21:01 Receipt Acknowledged By: 10/14/2024 08:25 /shahida/ Olga Peck MD Primary Care Physician GALILEA HALE-[facility]
--- OUTSIDE RECORDS SUMMARY | 2024-11-13 17:57 | XMS_ITS | Encounter Summary ---
Author Name [facility] [place] [facility] [place] Organization [facility] [place] Address [address] [place] [address] Care Team Providers Care Custom Feed Mill Operator Helper Name Role Phone ANAMICHAEL ERIK Primary Care Provider Unavailabl e OLGA PECK Primary Care Provider Unavailabl e Selected Encounter This section includes the information on record at [place] for the Encounter. Date/Time Encounter Type Encounter Description Reason Pro vider Source Mar 10, 2024 07:55 AM Outpatient Encounter ADMIN PAT ACTIVTIES (MASNONCT) IHE Encounter Template Text not used by [place] Plan of Treatment: Future Appointments (+ 6 months) and Future Tests (+/- 45 days) The Plan of Treatment section includes future care activities for the patient from all [place] treatmentfacilities. This section includes future appointments and future orders which are active, pending or scheduled. Future Appointments This section includes appointments that were scheduled to occur 6 months from the date of the Encounter, up to a maximum of 20 appointments. The data comes from all [place] treatment facilities. Appointment Date/Time Appointment Type Appointme nt Facility Name Jun 11, 2024 01:15 PM AMBULATORY - MEDICINE [facility] Active, Pending, and Scheduled Orders This section includes a listing of several types of active, pending, and scheduled orders, including clinic medications orders, diagnostic test orders, procedure orders and consult orders; where the start date of the order is 45 days before the date of the Encounter or 45 days after the date of theEncounter. The data comes from all [place] treatment facilities. Test Date/Time Test Type Test Details Facility Name Feb 20, 2024 12:00 AM Laboratory - Chemi stry Order OCCULT BLOOD FIT X1 SCREEN STOOL FECES SP ONCE [facility] Encounter Notes: All associated encounter notes This section contains the clinical notes associated to the Encounter. Date/Time Encounter Note(s) Provider Source Mar 10, 2024 07:55 AM PHARMACY MEDICATIO N MGT NOTE: LOCAL TITLE: CONTROLLED SUBSTANCE RENEWAL REQUEST STANDARD TITLE: PHARMACY MEDICATION MGT NOTE DATE OF NOTE: MAR 10, 2024@07:55 ENTRY DATE: MAR 10, 2024@07:55:31 AUTHOR: GALILEA HALE EXP COSIGNER: URGENCY: STATUS: COMPLETED Rx requested - GABAPENTIN 300MG CAP Last fill date - 02/06/24 Progress Note Date Title Author (and Author's Title) SEP 24, 2023@13:24 PC PROGRESS NOTE OLGA PECK (PRIMARY CARE [facility]/PDMP Progress Note Date Title Author (and Author's Title) FEB 21, 2024@12:41:54STATE PRESCRIPTION ROLANDO OLGA PECK (PRIMARY CARE No data available for: NALOXONE NALOXONE AUTOINJECTOR [...] Indicates COMMENTS AVAILABLE...Refer to Interim Lab Report. /es/ GALILEA HALE University Intern (senior lead software engineer) Signed: 03/10/2024 07:55 Receipt Acknowledged By: 03/11/2024 08:43 /es/ Olga Peck MD Primary Care Physician GALILEA HALE-[facility]
--- OUTSIDE RECORDS SUMMARY | 2024-11-13 17:58 | XMS_ITS | Encounter Summary ---
Author Name [facility] [place] [facility] [place] Organization [facility] [place] Address [address] [place] [address] Care Team Providers Care Tanbark Peeler Name Role Phone ANAMICHAEL ERIK Primary Care Provider Unavailabl e OLGA PECK Primary Care Provider Unavailabl e Selected Encounter This section includes the information on record at [place] for the Encounter. Date/Time Encounter Type Encounter Description Reason Pro vider Source Sep 12, 2024 03:17 AM Outpatient Encounter ADMIN PAT ACTIVTIES (MASNONCT) IHE Encounter Template Text not used by [place] Plan of Treatment: Future Appointments (+ 6 months) and Future Tests (+/- 45 days) The Plan of Treatment section includes future care activities for the patient from all [place] treatmentfacilities. This section includes future appointments and future orders which are active, pending or scheduled. Future Appointments This section includes appointments that were scheduled to occur 6 months from the date of the Encounter, up to a maximum of 20 appointments. The data comes from all [place] treatment facilities. Appointment Date/Time Appointment Type Appointme nt Facility Name November 27, 2024 04:00 PM AMBULATORY - MEDICINE [facility] Encounter Notes: All associated encounter notes This section contains the clinical notes associated to the Encounter. Date/Time Encounter Note(s) Provider Source Sep 12, 2024 03:17 AM PHARMACY MEDICATIO N MGT NOTE: LOCAL TITLE: CONTROLLED SUBSTANCE RENEWAL REQUEST STANDARD TITLE: PHARMACY MEDICATION MGT NOTE DATE OF NOTE: SEP 12, 2024@03:17 ENTRY DATE: SEP 12, 2024@03:17:59 AUTHOR: GALILEA HALE EXP COSIGNER: URGENCY: STATUS: COMPLETED Rx requested - GABAPENTIN 300MG CAP Last fill date - 08/02/24 Progress Note Date Title Author (and Author's Title) SEP 24, 2023@13:24 PC PROGRESS NOTE OLGA PECK (PRIMARY CARE ST TRAV/PDMP No Data Found for the Selected Note Titles No data available for: NALOXONE NALOXONE AUTOINJECTOR IM RESCUE NALOXONE NASAL RESCUE 4MG NALOXONE NASAL RESCUE 8MG NALOXONE NASAL RESCUE Mail ID signer [place] alert sent to OLGA PECK, Primary Care Provider Comments: TRAV is needed DRUG SCREEN: ONLY Drug Screens within the [...] to Interim Lab Report. /shahida/ GALILEA HALE Video Editor (staff rn) Signed: 09/12/2024 03:18 Receipt Acknowledged By: 09/12/2024 10:16 /shahida/ Olga Peck MD Primary Care Physician GALILEA HALE-[facility]
--- OUTSIDE RECORDS SUMMARY | 2024-11-13 17:58 | XMS_ITS ---
Author Name [facility] [place] [facility] [place] Organization [facility] [place] Address [address] [place] [address] Care Team Providers Care Multiple Slide Operator Name Role Phone ANAMICHAEL ERIK Primary Care Provider Unavailabl e OLGA EDEN Primary Care Provider Unavailabl e Selected Encounter This section includes the information on record at [place] for the Encounter. Date/Time Encounter Type Encounter Description Reason Pro vider Source Feb 21, 2024 12:38 PM Outpatient Encounter ADMIN PAT ACTIVTIES (MASNONCT) IHE Encounter Template Text not used by [place] Plan of Treatment: Future Appointments (+ 6 months) and Future Tests (+/- 45 days) The Plan of Treatment section includes future care activities for the patient from all [place] treatmentfacilities. This section includes future appointments and future orders which are active, pending or scheduled. Future Appointments This section includes appointments that were scheduled to occur 6 months from the date of the Encounter, up to a maximum of 20 appointments. The data comes from all [place] treatment facilities. Appointment Date/Time Appointment Type Appointme nt Facility Name Jun 11, 2024 01:15 PM AMBULATORY - MEDICINE [facility] Active, Pending, and Scheduled Orders This section includes a listing of several types of active, pending, and scheduled orders, including clinic medications orders, diagnostic test orders, procedure orders and consult orders; where the start date of the order is 45 days before the date of the Encounter or 45 days after the date of theEncounter. The data comes from all [place] treatment facilities. Test Date/Time Test Type Test Details Facility Name Feb 20, 2024 12:00 AM Laboratory - Chemi stry Order OCCULT BLOOD FIT X1 SCREEN STOOL FECES SP ONCE [facility] Lab Results: +/- 30 days of the encounter This section includes the Chemistry and Hematology Lab Results on record with [place] for the patient. Radiology Reports and Pathology Reports are provided separately, in subsequent sections. Lab Results This section contains the Chemistry/Hematology Results that were resulted 30 days before or 30 daysafter the date of the Encounter. Date/Time Source Result Type Result - Unit Interpretation Reference Range Specimen Type Comment Feb 07, 2024 11:13 AM [facility] WN DRUG SCREEN IN-HOUSE ROUTINE URINE [...] Feb 06, 2024 08:48 AM Reporting Lab: [address] [id number] Performing Lab: [address] [id number] TETRAHYDROCANNABINOL SCREEN POS AMPHETAMINE SCR NEG BARBITURATES SCR NEG BENZODIAZEPINES SCR NEG COCAINE METABOLITE SCR NEG OPIATES SCR NEG METHADONE SCR NEG OXYCODONE SCR NEG Encounter Notes: All associated encounter notes This section contains the clinical notes associated to the Encounter. Date/Time Encounter Note(s) Provider Source Feb 21, 2024 12:38 PM PHARMACY MEDICATIO N MGT NOTE: LOCAL TITLE: CONTROLLED SUBSTANCE RENEWAL REQUEST STANDARD TITLE: PHARMACY MEDICATION MGT NOTE DATE OF NOTE: FEB 21, 2024@12:38 ENTRY DATE: FEB 21, 2024@12:38:58 AUTHOR: BEATRICE SMITH COSIGNER: URGENCY: STATUS: COMPLETED Rx requested - ZOLPIDEM TARTRATE 10MG TAB Last fill date - 02.09.24 *10 day supply* Progress Note Date Title Author (and Author's Title) SEP 24, 2023@13:24 PC PROGRESS NOTE OLGA EDEN (PRIMARY CARE ST TRAV/PDMP Progress Note Date Title Author (and Author's Title) DEC 10, 2023@08:33:01STATE PRESCRIPTION ROLANDO OLGA EDEN (PRIMARY CARE ST [...] Lab Report. /shahida/ Beatrice Smith CPhT Pharmacy Centerpuncher Signed: 02/21/2024 12:39 Receipt Acknowledged By: 02/21/2024 12:41 /shahida/ Olga Eden MD Primary Care Physician BEATRICE SMITH-[facility]
--- OUTSIDE RECORDS SUMMARY | 2024-11-13 17:58 | XMS_ITS | Encounter Summary ---
Author Name [facility] [place] [facility] [place] Organization [facility] [place] Address [address] [place] [address] Care Team Providers Care Stagecraft Teacher Name Role Phone ANAMICHAEL ERIK Primary Care Provider Unavailabl e HERMAN PECK Primary Care Provider Unavailabl e Selected Encounter This section includes the information on record at [place] for the Encounter. Date/Time Encounter Type Encounter Description Reason Pro vider Source Jan 04, 2024 02:34 PM Outpatient Encounter ADMIN PAT ACTIVTIES (MASNONCT) [...] 11, 2024 03:00 PM AMBULATORY - NONE [facility] Jun 11, 2024 01:15 PM AMBULATORY - MEDICINE [facility]CO[facility] Encounter Notes: All associated encounter notes This section contains the clinical notes associated to the Encounter. Date/Time Encounter Note(s) Provider Source Jan 04, 2024 02:35 PM PHARMACY NOTE: LOCAL TITLE: SIGNATURE READY PHARMACY RENEWAL NOTE STANDARD TITLE: PHARMACY NOTE DATE OF NOTE: JAN 04, 2024@14:35 ENTRY DATE: JAN 04, 2024@14:35:56 AUTHOR: AGLILEA HALE EXP COSIGNER: URGENCY: STATUS: COMPLETED Signature Ready Order Progress Note Date Title Author (and Author's Title) SEP 24, 2023@13:24 PC PROGRESS NOTE HERMAN PECK (PRIMARY CARE ST 1) Rx#: [id number] SERTRALINE HCL 100MG TAB Original Prescriber: HERMAN PECK Pharmacy received request via: Secure Message /beatriz HALE Devops Engineer (film touch up inspector) Signed: 01/04/2024 14:36 GALILEA HALE-CD[facility] Jan 04, 2024 02:34 PM PHARMACY MEDICATIO N MGT NOTE: LOCAL TITLE: CONTROLLED SUBSTANCE RENEWAL REQUEST STANDARD TITLE: PHARMACY MEDICATION MGT NOTE DATE OF NOTE: JAN 04, 2024@14:34 ENTRY DATE: JAN 04, 2024@14:34:53 AUTHOR: GALILEA HALE EXP COSIGNER: URGENCY: STATUS: COMPLETED Rx requested - ZOLPIDEM TARTRATE 10MG TAB Last fill date - 12/05/23 Progress Note Date Title Author (and Author's Title) SEP 24, 2023@13:24 PC PROGRESS NOTE HREMAN PECK (PRIMARY CARE TRAV/PDMP Progress Note Date Title Author (and Author's Title) DEC 10, 2023@08:33:01STATE PRESCRIPTION HERMAN RAMIREZ (PRIMARY CARE No data available for: NALOXONE NALOXONE AUTOINJECTOR IM RESCUE NALOXONE NASAL RESCUE 4MG NALOXONE NASAL RESCUE 8MG NALOXONE NASAL RESCUE Mail ID signer [place] alert sent to HERMAN PECK, Primary Care Provider Comments: DRUG SCREEN: ONLY Drug Screens within the prior 12 months will be listed Drug Screen: No data available /beatriz HALE Devops Engineer (film touch up inspector) Signed: 01/04/2024 14:35 Receipt Acknowledged By: 01/04/2024 15:58 /shahida/ FRIDA UMANA STAFF PHYSICIAN for GALILEA CERRATO-D [facility]
--- OUTSIDE RECORDS SUMMARY | 2024-11-13 17:58 | XMS_ITS | Encounter Summary ---
Author Name [facility] [place] Organization [facility] [place] Address [address] [place] [address] Care Team Providers Care Client Application Support Engineer Name Role Phone ANAMICHAEL ERIK Primary Care Provider Unavailabl e HERMAN PECK Primary Care Provider Unavailabl e Selected Encounter This section includes the information on record at [place] for the Encounter. Date/Time Encounter Type Encounter Description Reason Provider Source Oct 31, 2024 12:17 PM PH1 ASSMT&MGMT NQHP 5-10 TELEPHONE PRIMARY CARE ICD-10-CM Z71.89 Other specified counseling SONIA MOORE Niki Encounter Template Text not used by [place] Assessments - Encounter Diagnoses This section includes the primary and secondary diagnoses documented for the Encounter. Date/Time Primary/Secondary Diagnosis Diagnosis Name Provider Source Oct 31, 2024 12:17 PM PRIMARY Other specified counseling SONIA MOORE [facility] Plan of Treatment: Future Appointments (+ 6 months) and Future Tests (+/- 45 days) The Plan of Treatment section includes future care activities for the patient from all [place] treatmentfacilities. This section includes future appointments and future orders which are active, pending or scheduled. Future Appointments This section includes appointments that were scheduled to occur 6 months from the date of the Encounter, up to a maximum of 20 appointments. The data comes from all [place] treatment facilities. Appointment Date/Time Appointment Type Appointme nt Facility Name November 27, 2024 04:00 PM AMBULATORY - MEDICINE [facility] Social History: Smoking Status (Most current) and Tobacco Use (All prior to encounter date) This section includes the most current, and the historical, smoking and tobacco- related health factors from the [place] facility where the Encounter took place. Current Smoking Status This section includes the most current smoking, or tobacco-related health factor, from the [place] facility where the Encounter took place. Date/Time Current Smoking Status Comment Facil ity November 22, 2022 08:00 AM VA-TOBACCO FORMER USER [facility] Tobacco Use History This section includes a history of the smoking, or tobacco-related health factors, that were collected on or before the date of the Encounter. The data comes from the [place] facility where the Encounter took place. Date/Time Smoking Status/Tobacco Use Comment F acmarcos November 22, 2022 08:00 AM VA-TOBACCO QUIT 5 TO < 15 YRS [facility] Dec 09, 2021 02:30 PM VA-TOBACCO FORMER USER [facility] Dec 09, 2021 02:30 PM VA-TOBACCO QUIT 5 TO < 15 YRS [facility] Sep 01, 2019 09:42 AM VA-TOBACCO FORMER USER [facility] Sep 01, 2019 09:42 AM VA-TOBACCO QUIT 5 TO < 15 YRS [facility] Encounter Notes: All associated encounter notes This section contains the clinical notes associated to the Encounter. Date/Time Encounter Note(s) Provider Source Oct 31, 2024 12:17 PM PRIMARY CARE TELEP KEKE ENCOUNTER NOTE: LOCAL TITLE: Pc Telephone Care Note STANDARD TITLE: PRIMARY CARE TELEPHONE ENCOUNTER NOTE DATE OF NOTE: OCT 31, 2024@12:17 ENTRY DATE: OCT 31, 2024@12:17:42 AUTHOR: SONIA MOORE COSIGNER: URGENCY: STATUS: COMPLETED Left HIPPA compliant voicemail confirming appointment on 11/03/24 at 1030 and to arrive approximately 15 minutes prior to the appointment to be properly checked in, along with any and all logs that PCP advised to keep and provide to PCP. Provided [facility] direct number to call back if they have any questions at [phone] ext. [phone]. /es/ SONIA MOORE Licensed Practical Nurse Signed: 10/31/2024 12:18 SONIA MOORE [facility]
--- OUTSIDE RECORDS SUMMARY | 2024-11-13 17:58 | XMS_ITS | Continuity of Care Document ---
Author Name [facility] Organization [facility] Care Team Providers Care Progress Clerk Name Role Phone [facility] Unavailable Unavailable Problems Combined list of problems from Department of 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 It does not include entries that were removed or entered in error. Problem Status Onset Date Problem Type Date of Resolution Comments Source Other intervertebral disc displacement, lumbar region Active 018 Condition DoD Spondylolisthesis, lumbar region Active 018 Condition DoD Other spondylosis, lumbar region Active 018 Condition DoD Generalized anxiety disorder Active 017 Condition [facility] Attention-deficit hyperactivity disorder, predominantly inattentive type Active 017 Condition [facility] Essential (primary) hypertension Active 017 Condition [facility] Radiculopathy, lumbar region Active 015 Condition [facility] Radiculopathy, cervical region Active 015 Condition DoD Other spondylosis, cervical region Active 015 Condition [facility] Obstructive sleep apnea (adult) (pediatric) Active 015 Condition [facility] Congenital insufficiency of aortic valve Active 015 Condition [facility] Anterior chest wall pain Active Condition [facility]) Anxiety Active Condition [facility] Anxiety (SCT [id number]) Active Condition [facility]) Anxiety disorder Active Condition [facility]) Aortic Valve Disorder (SCT [id number]) Active Condition [facility]) Cannabis dependence, continuous Active Condition [facility] Clostridium difficile diarrhea Active Condition [facility]) Degeneration of Cervical Intervertebral Disc (SCT [id number]) Active Condition [facility]) Degeneration of lumbar intervertebral disc Active Condition [facility] Degeneration of Lumbosacral Intervertebral Disc (SCT [id number]) Active Condition [facility]) Depression Active Condition [facility] Gastritis Active Condition Aug 25 20 Entered By: ERIK WADDELL: edg path 2-20 [facility] Helicobacter pylori-associated gastritis Active Condition [facility] History of aortic valve replacement Active Condition Jan 24 Entered By: ERIK WADDELL Comment: 07/2017 Bovine by hx [facility] HTN - Hypertension (SCT [id number]) Active Condition [facility] Insomnia (SCT 112855583) Active Condition [facility]) Lumbar radiculopathy Active Condition [facility] Nondependent cannabis abuse Active Condition [facility]) Sleep apnea Active Condition [facility] Sleep Apnea (SCT [id number]) Active Condition [facility] Spinal stenosis in cervical region Active Condition [facility] Other specified anxiety disorders Active Condition DoD Migraine with aura, not intractable, without status migrainosus Active Condition DoD Gastro-esophageal reflux disease without esophagitis Inactive Condition DoD Sleep disorder, unspecified Inactive Condition DoD Low back pain Inactive Condition DoD ADHD, PREDOMINANTLY INATTENTIVE TYPE Inactive Condition DoD DEPRESSION WITH ANXIETY Inactive Condition DoD BACKACHE Inactive Condition DoD NONORGANIC SLEEP DISORDERS Inactive Condition DoD PRIMARY SNORING Inactive Condition DoD Patient Counseling: Inactive Condition D oD LUMBAGO Inactive Condition DoD Patient Education Inactive Condition DoD BLEPHARITIS Inactive Condition DoD REFRACTIVE ERROR Inactive Condition DoD joint pain in both knees Inactive Condition DoD soft tissue pain in toes Inactive Condition DoD RHINITIS Inactive Condition DoD SUPERFICIAL INJURY - ABRASION OF CORNEA Inactive Condition DoD visit for: issue repeat prescription Inactive Condition DoD MAJOR DEPRESSION, RECURRENT Inactive Condition DoD BURSITIS OCCUPATIONAL SHOULDER LEFT Inactive Condition DoD DEPRESSION Inactive Condition DoD visit for: issue medical certificate Inactive Condition DoD Parent Education: Inactive Condition DoD visit for: postsurgical exam Inactive Condition DoD visit for: screening exam cardiovascular disorders Inactive Condition DoD visit for: preoperative cardiovascular exam Inactive Condition DoD AORTIC REGURGITATION CONGENITAL BICUSPID VALVE Inactive Condition DoD CERVICAL RADICULOPATHY Inactive Condition DoD CERVICAL SPONDYLOSIS Inactive Condition DoD joint pain, localized in the knee Inactive Condition DoD Vaccines Prophylactic Need Against Influenza Inactive Condition DoD visit for: preoperative exam Inactive Condition DoD visit for: issue repeat prescription for medication Inactive Condition DoD PALPITATIONS Inactive Condition DoD ANXIETY DISORDER NOS Inactive Condition DoD GENERALIZED ANXIETY DISORDER Inactive Condition DoD anxiety Inactive Condition DoD Murmurs Inactive Condition DoD visit for: administrative purpose Inactive Condition DoD OPEN WOUND OF THE HAND LEFT Inactive Condition DoD NEOPLASM - SOFT TISSUE THORACIC WALL TRAPEZIUS MUSCLE Inactive Condition DoD Other Physical Therapy Inactive Condition DoD CERVICALGIA Inactive Condition Likely compressed disc with herniation (mild) onto cervical roots. I have seen this resolve with traction therapy. No need for MRI yet as no weakness or numbness. Recommend return to traciton therapy 20 minutes every other day and see if that improves things. Would not return to chiropractor at this time as tingling may be made worse if disc slips more with adjustment. Will f/u with patient. Will curbside PT to ask about frequency/durat ion of traction so as to better advise patient. Will f/u by email later today. Questions answered. DoD NONALLOPATHIC LESIONS CERVICAL Inactive Condition Pt with SD of the C-Spine. Responded well to OMT, felt to be mostly muscular in nature as he had many TP's of the C-Spine. OMT performed on 4 regions (head, C/T/L spine) including HVLA, ST, S/CS, ME, and OA decompression. Pt education on OMT. Pt to F/U PRN for OMT. DoD BACK STRAIN THORACIC Inactive Condition DoD NECK STRAIN Inactive Condition Pt with cervical/upper thoracic strain. Pt has been getting relief from Alleve, may continue, has supply at home. Pt to F/U on Sunday for OMT, sooner PRN. Pt education on back care and encouraged to perform gentle ROM, stretching exercises. DoD visit for: issue medical certificate fitness Inactive Condition NPQ but AA DIF NAC/FWWG migraines [id number] DoD DERMATOLOGY - BACTERIAL Inactive Condition DoD visit for: services physical Inactive Condition DoD visit for: exam following treatment Inactive Condition DoD visit for: screening exam pulmonary tuberculosis Inactive Condition Zero mm DoD ASTIGMATISM Active Condition DoD REFRACTIVE ERROR - MYOPIA Active Condition DoD visit for: routine eye exam Inactive Condition DoD CLASSIC MIGRAINE (WITH AURA) Inactive Condition Consult result: 31 year old male referred for evaluation of headaches which are preceeded by neurologic symptoms. The pemonitory symptoms represent migraine aura. What is characteristic is a visual obscuration which slowly marches across the visual field over a period of 15 minutes. Also typical is the slow progression of symptoms, which are referrable to one cerebral hemisphere. Indeed, as he experiences symptoms in his left hand the pain is reliably on the right, which is the hemisphere that controls the left hand. His difficulty with language represents a temporary aphasia, which has rarely occurred - and only occurs when the headache is on the left (and hand symptoms are on the right). These symptoms are not consistent with TIA, as the symptoms progress or march across vascular distributions. In addition, seizure is not consistent with these progression of symptoms.Rec:1. Although his symptoms are very rare, prophylaxis with safe medication should be considered. Riboflavin (vitamin B2) at a dose of 50 mg per day would be expected to be helpful, and this is a very safe, water soluble vitamin. An alternative to riboflavin would be verapamil - but this would be more likely to cause side effects.2. For acute treatment there is no real reason to adjust his current therapy -- he simply takes ibuprofen and his pain is quickly and completely relieved. THus, further migraine-specif ic therapies are not likely needed.3. If nausea proves to be a troublesome symptom, would consider specifically treating his nausea with reglan (or phenergan) if he has a severe headache with nausea. [facility] visit for: ears / hearing exam Inactive Condition DoD visit for: examination of subpopulation Inactive Condition [facility] Need For Vaccination Typhoid Inactive Condition [facility] PSEUDOFOLLICULITIS BARBAE Inactive Condition 1064 nm laser 50J/20ms/10mm/2 15 pulses DoD CELLULITIS OF THE FACE Inactive Condition resolved. Had completed antibiotics, was MRSA positive, had used nasal bactroban, hibiclens, and finger nail cleaning. [facility] INGROWING NAIL Inactive Condition [facility] Administrative Evaluation Services Inactive Condition waiver completed, will fax with most recent [facility] visit for: services flight physical Inactive Condition [facility] Diagnosis: ICD-10-CM Z71.89 Other specified counseling Active Diagnosis [facility] Diagnosis: ICD-10-CM Z71.9 Counseling, unspecified Active Diagnosis [facility] Diagnosis: ICD-10-CM Q23.81 Bicuspid aortic valve Active Diagnosis LULA FARLEY [facility] Diagnosis: ICD-10-CM K02.53 Dental caries on pit and fissure surface penetrat into pulp Active Diagnosis [facility] Diagnosis: ICD-10-CM K03.81 Cracked tooth Active Diagnosis [facility] Diagnosis: ICD-10-CM H52.4 Presbyopia Active Diagnosis NIGELINGTO [facility] Diagnosis: ICD-10-CM G47.30 Sleep apnea, unspecified Active Diagnosis [facility] Diagnosis: ICD-10-CM Z95.4 Presence of other heart-valve replacement Active Diagnosis LULA FARLEY [facility] Medications Combined list of outpatient medications from Department of 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Medications provided include 1) outpatient medications from the last 15 months, and 2) patient-reported medications. Medication Details Route Status Patient Instructions Prescription Expires Prescription Number Last Dispense Date Ordering Provider Order Date Order Qty Source ALUMINUM CL HEXAHYDRATE 20% SOLN,TOP APPLY SMALL AMOUNT TO AFFECTED AREA DIRECTED NEEDED FOR SWEATING . APPLY TO CLEAN SKIN OF UNDERARM S AT NIGHT 2-3 TIMES PER WEEK [place] L ACTIVE 02/07/2025 [id number] Aga WATSON RETCHEN B 2023 35 [place] [facility] GABAPENTIN 300MG CAP TAKE ONE CAPSULE BY MOUTH TWICE A DAY FOR NERVE PAIN ORAL ACTIVE 10/15/2025 [id number] 5 AMELIA PECK K 2024 60 [place] [facility] [place] GABAPENTIN 300MG CAP TAKE ONE CAPSULE BY MOUTH TWICE A DAY FOR NERVE PAIN ORAL DISCONT INUED 09/13/2025 [id number] 5 AMELIA PECK K 2024 60 [place] [facility] [place] GABAPENTIN 300MG CAP TAKE ONE CAPSULE BY MOUTH TWICE A DAY FOR NERVE PAIN ORAL DISCONT INUED (EDIT) 06/13/2025 [id number] 5 AMELIA PECK K 2023 60 [place] [facility] [place] GABAPENTIN 300MG CAP TAKE ONE CAPSULE BY MOUTH TWICE A DAY FOR NERVE PAIN ORAL DISCONT INUED 03/12/2025 [id number] 4 AMELIA PECK K 2023 60 [place] [facility] [place] GABAPENTIN 300MG CAP TAKE ONE CAPSULE BY MOUTH TWICE A DAY FOR NERVE PAIN ORAL DISCONT INUED (EDIT) 12/10/2024 [id number] 4 AMELIA PECK K 2023 60 [place] [facility] GABAPENTIN 300MG CAP TAKE ONE CAPSULE BY MOUTH TWICE A DAY FOR PAIN ORAL DISCONT INUED (EDIT) 08/14/2024 [id number] 4 AMELIA PECK K 2023 60 [place] [facility] SERTRALINE HCL 100MG TAB TAKE ONE TABLET BY MOUTH DAILY FOR MOOD ORAL ACTIVE 04/01/2025 [id number] 5 AMELIA PECK K 2023 90 [place] [facility] SERTRALINE HCL 100MG TAB TAKE ONE TABLET BY MOUTH DAILY FOR MOOD ORAL DISCONT INUED 04/03/2024 [id number] 4 AMELIA PECK K 2023 90 [place] [facility] SERTRALINE HCL 100MG TAB TAKE ONE TABLET BY MOUTH DAILY FOR MOOD ORAL DISCONT INUED 10/17/2023 [id number] 4 AMELIA PECK K 2022 90 [place] [facility] Zolpidem Tartrate (Ambien Kaiser) Tablet 10 mg Oral TAKE ONE TABLET BY MOUTH AT BEDTIME NEEDED FOR SLEEP 04/09/2024 [id number] HERMAN PECK 2023 30 [place] [facility] ZOLPIDEM TARTRATE 10MG TAB TAKE ONE TABLET BY MOUTH AT BEDTIME NEEDED FOR SLEEP ORAL ACTIVE 2025 [id number] 5 AMELIA PECK K 2024 30 [place] [facility] [place] ZOLPIDEM TARTRATE 10MG TAB TAKE ONE TABLET BY MOUTH AT BEDTIME NEEDED FOR SLEEP ORAL DISCONT INUED 12/13/2024 [id number] 5 AMELIA PECK K 2023 30 [place] [facility] [place] ZOLPIDEM TARTRATE 10MG TAB TAKE ONE TABLET BY MOUTH AT BEDTIME NEEDED FOR SLEEP ORAL DISCONT INUED 11/12/2024 [id number] 4 AMELIA PECK 2023 30 [place] [facility] ZOLPIDEM TARTRATE 10MG TAB TAKE ONE TABLET BY MOUTH AT BEDTIME NEEDED FOR SLEEP ORAL DISCONT INUED 08/23/2024 [id number] 4 AMELIA PECK K 2023 30 [place] [facility] ZOLPIDEM TARTRATE 10MG TAB TAKE ONE TABLET BY MOUTH AT BEDTIME NEEDED FOR SLEEP ORAL DISCONT INUED 02/03/2024 [id number] 4 FRIDA UMANA 2023 30 [place] [facility] ZOLPIDEM TARTRATE 10MG TAB TAKE ONE TABLET BY MOUTH AT BEDTIME NEEDED FOR SLEEP ORAL DISCONT INUED 03/09/2024 [id number] PENACAROLIN 2023 10 [place] [facility] ZOLPIDEM TARTRATE 10MG TAB TAKE ONE TABLET BY MOUTH AT BEDTIME NEEDED FOR SLEEP ORAL DISCONT INUED 04/09/2024 [id number] 4 AMELIA PECK K 2023 30 [place] [facility] Allergies, Adverse Reactions, Alerts Combined list of allergies from Department of 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 It does not include entries that were removed or entered in error. Substance Category Reaction Severity Reaction type Status Date Reported Comments Source No Known Allergies Drug allergy (disorder) active 04/09/2013 DoD Immunizations Combined list of available immunizations from the Department of 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 Immunization Series Date Given Administered By Site Reaction Lot Number CVX Code Drug Office Communication Professor Status Comments Source INFLUENZA, SEASONAL, INJECTABLE 2018 141 complet ed [place] [facility] INFLUENZA, INJECTABLE, QUADRIVALENT, PRESERVATIVE FREE 2018 150 complet ed [facility] measles, mumps and rubella virus vaccine 1 2016 VADIM GOLD [id number] Merck (MSD) comp let ed measles, mumps and rubella virus vaccine [facility] influenza, injectable, quadrivalent, contains preservative 1 2016 [facility] [place] [employer] (SKB) complet ed influenza , injectabl e, quadrival ent, contains preservat karen DoD Influenza, injectable, quadrivalent, preservative free 1 2016 KIEL KRAMER [id number] 150 [facility] ([facility]) complet ed Influenza , injectabl e, quadrival ent, preservat karen free DoD influenza, injectable, quadrivalent, contains preservative 0 2014 [id number] 158 [facility] [employer] ([facility]) complet ed influenza , injectabl e, quadrival ent, contains preservat karen DoD Influenza, seasonal, injectable, preservative free 1 2013 BOB BENNETT [id number] 140 [facility] ([facility]) complet ed Influenza , seasonal, injectabl e, preservat karen free DoD influenza, live, intranasal, quadrivalent 0 2013 [id number] [employer] (MED) complet ed influenza , live, intranasa l, quadrival ent DoD Influenza, seasonal, injectable, preservative free 1 2012 RANJANA REYES [id number] 140 San[employer] (PMC) complet ed Influenza , seasonal, injectabl e, preservat karen free DoD Influenza, seasonal, injectable, preservative free 0 2012 [id number] 140 [employer] Paste[employer] (PMC) complet ed Influenza , seasonal, injectabl e, preservat karen free DoD TDAP 2012 115 complet ed [place] [facility] influenza virus vaccine, split virus (incl. purified surface antigen)-reti red CODE 1 2011 NORA JULIO [id number] 15 San[employer] Pasteur (PMC) complet ed influenza virus vaccine, split virus (incl. purified surface antigen)- retired CODE DoD Influenza, seasonal, injectable 0 2010 [id number] 141 [employer] (MED) complet ed Influenza , seasonal, injectabl e DoD tuberculin skin test; purified protein derivative solution, intradermal 1 2009 CHINO BAER [id number] 96 Sanofi Pasteur (PMC) complet ed tuberculi n skin test; purified protein derivativ e solution, intraderm al [facility] typhoid Vi capsular polysaccharid e vaccine 1 2009 CHINO BAER [id number] San[employer]i Paste[employer] (PMC) complet ed typhoid Vi capsular polysacch aride vaccine DoD Novel influenza-H1N 1-09, injectable 0 2009 UNK 127 (AG) complet ed Novel influenza -A2S4-49, injectabl e DoD influenza virus vaccine, split virus (incl. purified surface antigen)-reti red CODE 0 2009 UNK 15 Unknown (UNK) comple t ed influenza virus vaccine, split virus (incl. purified surface antigen)- retired CODE DoD tuberculin skin test; purified protein derivative solution, intradermal 1 2007 TEAGANJR MARIE [id number] 96 Unknown (UNK) complet ed tuberculi n skin test; purified protein derivativ e solution, intraderm al DoD typhoid Vi capsular polysaccharid e vaccine 1 2007 MARIE YAO [id number] 101 Other (OTH) complet ed typhoid Vi capsular polysacch aride vaccine DoD tetanus and diphtheria toxoids, adsorbed, preservative free, for adult use (2 Lf of tetanus toxoid and 2 Lf of diphtheria toxoid) 0 2007 UNK 09 Sanofi Pasteur ([facility]) complet ed tetanus and diphtheri a toxoids, adsorbed, preservat karen free, for adult use (2 Lf of tetanus toxoid and 2 Lf of diphtheri a toxoid) DoD influenza virus vaccine, split virus (incl. purified surface antigen)-reti red CODE 0 2007 [id number] 15 Unknown (UNK) complet ed influenza virus vaccine, split virus (incl. purified surface antigen)- retired CODE DoD tuberculin skin test; purified protein derivative solution, intradermal 1 2005 VERONICA DYSON [id number] 96 [facility] () complet ed tuberculi n skin test; purified protein derivativ e solution, intraderm al DoD typhoid Vi capsular polysaccharid e vaccine 1 2005 VERONICA DYSON [id number] 101 Sanofi Pasteur ([facility]) complet ed typhoid Vi capsular polysacch aride vaccine DoD tuberculin skin test; purified protein derivative solution, intradermal 1 1999 Unknown, Provider 96 () complet ed tuberculi n skin test; purified protein derivativ e solution, intraderm al DoD tuberculin skin test; purified protein derivative solution, intradermal 1 1998 Unknown, Provider [id number] [facility] (CON) complet ed tuberculi n skin test; purified protein derivativ e solution, intraderm al DoD typhoid vaccine, live, oral 0 1997 25 () complet ed typhoid vaccine, live, oral DoD hepatitis A vaccine, adult dosage 2 1997 52 () complet ed hepatitis A vaccine, adult dosage DoD typhoid Vi capsular polysaccharid e vaccine 2 1997 UNK 101 [employer] ([facility]) complet ed typhoid Vi capsular polysacch aride vaccine DoD trivalent poliovirus vaccine, live, oral 0 1996 02 () complet ed trivalent polioviru s vaccine, live, oral DoD measles, mumps and rubella virus vaccine 0 1996 03 () complet ed measles, mumps and rubella virus vaccine DoD tetanus and diphtheria toxoids, adsorbed, preservative free, for adult use (2 Lf of tetanus toxoid and 2 Lf of diphtheria toxoid) 0 1996 09 () complet ed tetanus and diphtheri a toxoids, adsorbed, preservat karen free, for adult use (2 Lf of tetanus toxoid and 2 Lf of diphtheri a toxoid) DoD influenza virus vaccine, whole virus 0 1996 16 () complet ed influenza virus vaccine, whole virus DoD meningococcal polysaccharid e vaccine (MPSV4) 0 1996 32 () complet ed meningoco ccal polysacch aride vaccine (MPSV4) DoD yellow fever vaccine 0 1996 37 () complet ed yellow fever vaccine DoD tuberculin skin test; purified protein derivative solution, intradermal 1 1996 Unknown, Provider 0 96 [facility] (CON) complet ed tuberculi n skin test; purified protein derivativ e solution, intraderm al DoD Results Combined list of recent chemistry, hematology and other laboratory results from Department of Defense and Veterans Affairs, ranging from 15 months to all on record, depending upon the facility. Order Name Results Value Reference Range Date Interpretation Specimen Comments Source DRUG SCREEN IN-HOUSE ROUTINE TETRAHYDRO CANNABINOL [PRESENCE] IN URINE POS 02/06 Specimen Type: URINE Comment: Screening method results are unconfirmed and are for medical use only. Unconfirmed screening results must not be used for non-medical purposes. Opiates test most sensitive for morphine, codeine and heroin and less sensitive for hydrocodone and hydromorpho ne where higher concentrati ons are needed for cut-off detection. Ordering Provider: JAROCHO PENA Report Released Date/Time: Feb 06, 2024 08:48 AM Reporting Lab: [address] [id number] Performing Lab: [address] [id number] [place] [address] DRUG SCREEN IN-HOUSE ROUTINE AMPHETAMIN ES [PRESENCE] IN URINE NEG 02/06 Specimen Type: URINE Comment: Screening method results are unconfirmed and are for medical use only. Unconfirmed screening results must not be used for non-medical purposes. Opiates test most sensitive for morphine, codeine and heroin and less sensitive for hydrocodone and hydromorpho ne where higher concentrati ons are needed for cut-off detection. Ordering Provider: JAROCHO PENA Report Released Date/Time: Feb 06, 2024 08:48 AM Reporting Lab: [address] [id number] Performing Lab: [id number] [place] [address] DRUG SCREEN IN-HOUSE ROUTINE BARBITURAT ES [PRESENCE] IN URINE BY SCREEN METHOD NEG 02/06 Specimen Type: URINE Comment: Screening method results are unconfirmed and are for medical use only. Unconfirmed screening results must not be used for non-medical purposes. Opiates test most sensitive for morphine, codeine and heroin and less sensitive for hydrocodone and hydromorpho ne where higher concentrati ons are needed for cut-off detection. Ordering Provider: JAROCHO PENA Report Released Date/Time: Feb 06, 2024 08:48 AM Reporting Lab: [address] [phone] Performing Lab: [address] [phone] [facility] DRUG SCREEN IN-HOUSE ROUTINE BENZODIAZE PINES [PRESENCE] IN URINE BY SCREEN METHOD NEG 02/06 Specimen Type: URINE Comment: Screening method results are unconfirmed and are for medical use only. Unconfirmed screening results must not be used for non-medical purposes. Opiates test most sensitive for morphine, codeine and heroin and less sensitive for hydrocodone and hydromorpho ne where higher concentrati ons are needed for cut-off detection. Ordering Provider: JAROCHO PENA Report Released Date/Time: Feb 06, 2024 08:48 AM Reporting Lab: [address] [address] Performing Lab: [address] [id number] [place] [address] DRUG SCREEN IN-HOUSE ROUTINE BENZOYLECG ONINE [PRESENCE] IN URINE NEG 02/06 Specimen Type: URINE Comment: Screening method results are unconfirmed and are for medical use only. Unconfirmed screening results must not be used for non-medical purposes. Opiates test most sensitive for morphine, codeine and heroin and less sensitive for hydrocodone and hydromorpho ne where higher concentrati ons are needed for cut-off detection. Ordering Provider: JAROCHO PENA Report Released Date/Time: Feb 06, 2024 08:48 AM Reporting Lab: [address] [phone] Performing Lab: [phone] [place] [address] DRUG SCREEN IN-HOUSE ROUTINE OPIATES [PRESENCE] IN URINE BY SCREEN METHOD NEG 02/06 Specimen Type: URINE Comment: Screening method results are unconfirmed and are for medical use only. Unconfirmed screening results must not be used for non-medical purposes. Opiates test most sensitive for morphine, codeine and heroin and less sensitive for hydrocodone and hydromorpho ne where higher concentrati ons are needed for cut-off detection. Ordering Provider: JAROCHO PENA Report Released Date/Time: Feb 06, 2024 08:48 AM Reporting Lab: [address] [address] Performing Lab: [address] [address] [facility] DRUG SCREEN IN-HOUSE ROUTINE METHADONE [PRESENCE] IN URINE NEG 02/06 Specimen Type: URINE Comment: Screening method results are unconfirmed and are for medical use only. Unconfirmed screening results must not be used for non-medical purposes. Opiates test most sensitive for morphine, codeine and heroin and less sensitive for hydrocodone and hydromorpho ne where higher concentrati ons are needed for cut-off detection. Ordering Provider: JAROCHO EPNA Report Released Date/Time: Feb 06, 2024 08:48 AM Reporting Lab: [place] [phone] Performing Lab: [place] [phone] [place] [address] DRUG SCREEN IN-HOUSE ROUTINE OXYCODONE [PRESENCE] IN URINE NEG 02/06 Specimen Type: URINE Comment: Screening method results are unconfirmed and are for medical use only. Unconfirmed screening results must not be used for non-medical purposes. Opiates test most sensitive for morphine, codeine and heroin and less sensitive for hydrocodone and hydromorpho ne where higher concentrati ons are needed for cut-off detection. Ordering Provider: JAROCHO PENA Report Released Date/Time: Feb 06, 2024 08:48 AM Reporting Lab: [address] [phone] Performing Lab: [place] [phone] [place] [address] LIPID PROFILE CHOLESTERO L [MASS/VOLU ME] IN SERUM OR PLASMA 199 mg/dL 0 - 199 05/02 Specimen Type: PLASMA Comment: Vitamin B12 test may not yield results when protein level of sample is too elevated. Estimated Glomerular Filtration Rate (eGFR) calculated using the 2020 Chronic Kidney Disease-Epi demiology (CKD-EPI) Collaborati on creatinine equation; units of measure are mL/min/1.73 m2. Results are only valid for adults (>=18 years) whose serum creatinine is in a steady state. eGFR calculation s are not valid for patients with acute kidney injury and for patients on dialysis. Creatinine- based estimates of kidney function may also be inaccurate in patients with reduced creatinine generation due to decreased muscle mass (e.g., malnutritio n, severe hypoalbumin emia, sarcopenia, chronic neuromuscul ar disease, amputations , severe heart failure or liver disease) and in patients with increased creatinine generation due to increased muscle mass (e.g., muscle builders, anabolic steroids) or increased dietary intake. As drug clearance is proportiona l to total GFR and not GFR indexed to body surface area (BSA), in individuals with a BSA substantial ly different than 1.73 m2, drug dosing should be based on the reported eGFR value de-indexed from BSA by multiplying by the individual' s BSA and dividing by 1.73. CKD is diagnosed based on abnormaliti es of kidney structure or function, present for >3 months, with implication s for health and disease. CKD is classified and staged based on cause, eGFR and albuminuria (quantified as urine albumin to creatinine ratio). An eGFR >60 mL/min/1.73 m2 in the absence of increased urine albumin excretion or structural abnormaliti es does not represent CKD. eGFR CKD Interpretat ion (mL/min/1.7 3 m2) stage >=90 G1 Normal 60-89 G2 Mild decrease 45-59 G3A Mild to moderate decrease 30-44 G3B Moderate to severe decrease 15-29 G4 Severe decrease <15 G5 Kidney failure Ordering Provider: KINGSLEY PECK Report Released Date/Time: May 02, 2023 01:09 PM Reporting Lab: [facility] [address] [phone] Performing Lab: [place] [address] [address] [facility] LIPID PROFILE TRIGLYCERI DE [MASS/VOLU ME] IN SERUM OR PLASMA 130 mg/dL 0 - 149 05/02 Specimen Type: PLASMA Comment: Vitamin B12 test may not yield results when protein level of sample is too elevated. Estimated Glomerular Filtration Rate (eGFR) calculated using the 2020 Chronic Kidney Disease-Epi demiology (CKD-EPI) Collaborati on creatinine equation; units of measure are mL/min/1.73 m2. Results are only valid for adults (>=18 years) whose serum creatinine is in a steady state. eGFR calculation s are not valid for patients with acute kidney injury and for patients on dialysis. Creatinine- based estimates of kidney function may also be inaccurate in patients with reduced creatinine generation due to decreased muscle mass (e.g., malnutritio n, severe hypoalbumin emia, sarcopenia, chronic neuromuscul ar disease, amputations , severe heart failure or liver disease) and in patients with increased creatinine generation due to increased muscle mass (e.g., muscle builders, anabolic steroids) or increased dietary intake. As drug clearance is proportiona l to total GFR and not GFR indexed to body surface area (BSA), in individuals with a BSA substantial ly different than 1.73 m2, drug dosing should be based on the reported eGFR value de-indexed from BSA by multiplying by the individual' s BSA and dividing by 1.73. CKD is diagnosed based on abnormaliti es of kidney structure or function, present for >3 months, with implication s for health and disease. CKD is classified and staged based on cause, eGFR and albuminuria (quantified as urine albumin to creatinine ratio). An eGFR >60 mL/min/1.73 m2 in the absence of increased urine albumin excretion or structural abnormaliti es does not represent CKD. eGFR CKD Interpretat ion (mL/min/1.7 3 m2) stage >=90 G1 Normal 60-89 G2 Mild decrease 45-59 G3A Mild to moderate decrease 30-44 G3B Moderate to severe decrease 15-29 G4 Severe decrease <15 G5 Kidney failure Ordering Provider: KINGSLEY PECK Report Released Date/Time: May 02, 2023 01:09 PM Reporting Lab: [facility]UL[facility] [address] [phone] Performing Lab: [facility]UL[facility] F[facility] [address] [phone] [facility] LIPID PROFILE CHOLESTERO L IN HDL [MASS/VOLU ME] IN SERUM OR PLASMA 45 mg/dL 40 - 69 05/02 Specimen Type: PLASMA Comment: Vitamin B12 test may not yield results when protein level of sample is too elevated. Estimated Glomerular Filtration Rate (eGFR) calculated using the 2020 Chronic Kidney Disease-Epi demiology (CKD-EPI) Collaborati on creatinine equation; units of measure are mL/min/1.73 m2. Results are only valid for adults (>=18 years) whose serum creatinine is in a steady state. eGFR calculation s are not valid for patients with acute kidney injury and for patients on dialysis. Creatinine- based estimates of kidney function may also be inaccurate in patients with reduced creatinine generation due to decreased muscle mass (e.g., malnutritio n, severe hypoalbumin emia, sarcopenia, chronic neuromuscul ar disease, amputations , severe heart failure or liver disease) and in patients with increased creatinine generation due to increased muscle mass (e.g., muscle builders, anabolic steroids) or increased dietary intake. As drug clearance is proportiona l to total GFR and not GFR indexed to body surface area (BSA), in individuals with a BSA substantial ly different than 1.73 m2, drug dosing should be based on the reported eGFR value de-indexed from BSA by multiplying by the individual' s BSA and dividing by 1.73. CKD is diagnosed based on abnormaliti es of kidney structure or function, present for >3 months, with implication s for health and disease. CKD is classified and staged based on cause, eGFR and albuminuria (quantified as urine albumin to creatinine ratio). An eGFR >60 mL/min/1.73 m2 in the absence of increased urine albumin excretion or structural abnormaliti es does not represent CKD. eGFR CKD Interpretat ion (mL/min/1.7 3 m2) stage >=90 G1 Normal 60-89 G2 Mild decrease 45-59 G3A Mild to moderate decrease 30-44 G3B Moderate to severe decrease 15-29 G4 Severe decrease <15 G5 Kidney failure Ordering Provider: KINGSLEY PECK Report Released Date/Time: May 02, 2023 01:09 PM Reporting Lab: [facility] [address] [phone] Performing Lab: [facility] F[facility] [address] [phone] [facility] LIPID PROFILE CHOLESTERO L IN LDL [MASS/VOLU ME] IN SERUM OR PLASMA BY DIRECT ASSAY 141 mg/dL 0 - 100 05/02 H Specimen Type: PLASMA Comment: Vitamin B12 test may not yield results when protein level of sample is too elevated. Estimated Glomerular Filtration Rate (eGFR) calculated using the 2020 Chronic Kidney Disease-Epi demiology (CKD-EPI) Collaborati on creatinine equation; units of measure are mL/min/1.73 m2. Results are only valid for adults (>=18 years) whose serum creatinine is in a steady state. eGFR calculation s are not valid for patients with acute kidney injury and for patients on dialysis. Creatinine- based estimates of kidney function may also be inaccurate in patients with reduced creatinine generation due to decreased muscle mass (e.g., malnutritio n, severe hypoalbumin emia, sarcopenia, chronic neuromuscul ar disease, amputations , severe heart failure or liver disease) and in patients with increased creatinine generation due to increased muscle mass (e.g., muscle builders, anabolic steroids) or increased dietary intake. As drug clearance is proportiona l to total GFR and not GFR indexed to body surface area (BSA), in individuals with a BSA substantial ly different than 1.73 m2, drug dosing should be based on the reported eGFR value de-indexed from BSA by multiplying by the individual' s BSA and dividing by 1.73. CKD is diagnosed based on abnormaliti es of kidney structure or function, present for >3 months, with implication s for health and disease. CKD is classified and staged based on cause, eGFR and albuminuria (quantified as urine albumin to creatinine ratio). An eGFR >60 mL/min/1.73 m2 in the absence of increased urine albumin excretion or structural abnormaliti es does not represent CKD. eGFR CKD Interpretat ion (mL/min/1.7 3 m2) stage >=90 G1 Normal 60-89 G2 Mild decrease 45-59 G3A Mild to moderate decrease 30-44 G3B Moderate to severe decrease 15-29 G4 Severe decrease <15 G5 Kidney failure Ordering Provider: KINGSLEY PECK Report Released Date/Time: May 02, 2023 01:09 PM Reporting Lab: [facility] [address] [facility] [phone] Performing Lab: [facility] [address] [facility] [phone] [facility] PANEL 5 CREATININE [MASS/VOLU ME] IN SERUM OR PLASMA 1.11 mg/dL 0.72 - 1.25 05/02 Specimen Type: PLASMA Comment: Vitamin B12 test may not yield results when protein level of sample is too elevated. Estimated Glomerular Filtration Rate (eGFR) calculated using the 2020 Chronic Kidney Disease-Epi demiology (CKD-EPI) Collaborati on creatinine equation; units of measure are mL/min/1.73 m2. Results are only valid for adults (>=18 years) whose serum creatinine is in a steady state. eGFR calculation s are not valid for patients with acute kidney injury and for patients on dialysis. Creatinine- based estimates of kidney function may also be inaccurate in patients with reduced creatinine generation due to decreased muscle mass (e.g., malnutritio n, severe hypoalbumin emia, sarcopenia, chronic neuromuscul ar disease, amputations , severe heart failure or liver disease) and in patients with increased creatinine generation due to increased muscle mass (e.g., muscle builders, anabolic steroids) or increased dietary intake. As drug clearance is proportiona l to total GFR and not GFR indexed to body surface area (BSA), in individuals with a BSA substantial ly different than 1.73 m2, drug dosing should be based on the reported eGFR value de-indexed from BSA by multiplying by the individual' s BSA and dividing by 1.73. CKD is diagnosed based on abnormaliti es of kidney structure or function, present for >3 months, with implication s for health and disease. CKD is classified and staged based on cause, eGFR and albuminuria (quantified as urine albumin to creatinine ratio). An eGFR >60 mL/min/1.73 m2 in the absence of increased urine albumin excretion or structural abnormaliti es does not represent CKD. eGFR CKD Interpretat ion (mL/min/1.7 3 m2) stage >=90 G1 Normal 60-89 G2 Mild decrease 45-59 G3A Mild to moderate decrease 30-44 G3B Moderate to severe decrease 15-29 G4 Severe decrease <15 G5 Kidney failure Ordering Provider: KINGSLEY PECK Report Released Date/Time: May 02, 2023 01:09 PM Reporting Lab: [facility] [address] [facility] [phone] Performing Lab: L[facility] [address] [facility] [phone] [facility] PANEL 5 UREA NITROGEN [MASS/VOLU ME] IN SERUM OR PLASMA 14 mg/dL 05/02 Specimen Type: PLASMA Comment: Vitamin B12 test may not yield results when protein level of sample is too elevated. Estimated Glomerular Filtration Rate (eGFR) calculated using the 2020 Chronic Kidney Disease-Epi demiology (CKD-EPI) Collaborati on creatinine equation; units of measure are mL/min/1.73 m2. Results are only valid for adults (>=18 years) whose serum creatinine is in a steady state. eGFR calculation s are not valid for patients with acute kidney injury and for patients on dialysis. Creatinine- based estimates of kidney function may also be inaccurate in patients with reduced creatinine generation due to decreased muscle mass (e.g., malnutritio n, severe hypoalbumin emia, sarcopenia, chronic neuromuscul ar disease, amputations , severe heart failure or liver disease) and in patients with increased creatinine generation due to increased muscle mass (e.g., muscle builders, anabolic steroids) or increased dietary intake. As drug clearance is proportiona l to total GFR and not GFR indexed to body surface area (BSA), in individuals with a BSA substantial ly different than 1.73 m2, drug dosing should be based on the reported eGFR value de-indexed from BSA by multiplying by the individual' s BSA and dividing by 1.73. CKD is diagnosed based on abnormaliti es of kidney structure or function, present for >3 months, with implication s for health and disease. CKD is classified and staged based on cause, eGFR and albuminuria (quantified as urine albumin to creatinine ratio). An eGFR >60 mL/min/1.73 m2 in the absence of increased urine albumin excretion or structural abnormaliti es does not represent CKD. eGFR CKD Interpretat ion (mL/min/1.7 3 m2) stage >=90 G1 Normal 60-89 G2 Mild decrease 45-59 G3A Mild to moderate decrease 30-44 G3B Moderate to severe decrease 15-29 G4 Severe decrease <15 G5 Kidney failure Ordering Provider: KINGSLEY PECK Report Released Date/Time: May 02, 2023 01:09 PM Reporting Lab: [address] [phone] Performing Lab: [address] [phone] [facility] PANEL 5 GLUCOSE [MASS/VOLU ME] IN SERUM OR PLASMA 107 mg/dL 74 - 100 05/02 H Specimen Type: PLASMA Comment: Vitamin B12 test may not yield results when protein level of sample is too elevated. Estimated Glomerular Filtration Rate (eGFR) calculated using the 2020 Chronic Kidney Disease-Epi demiology (CKD-EPI) Collaborati on creatinine equation; units of measure are mL/min/1.73 m2. Results are only valid for adults (>=18 years) whose serum creatinine is in a steady state. eGFR calculation s are not valid for patients with acute kidney injury and for patients on dialysis. Creatinine- based estimates of kidney function may also be inaccurate in patients with reduced creatinine generation due to decreased muscle mass (e.g., malnutritio n, severe hypoalbumin emia, sarcopenia, chronic neuromuscul ar disease, amputations , severe heart failure or liver disease) and in patients with increased creatinine generation due to increased muscle mass (e.g., muscle builders, anabolic steroids) or increased dietary intake. As drug clearance is proportiona l to total GFR and not GFR indexed to body surface area (BSA), in individuals with a BSA substantial ly different than 1.73 m2, drug dosing should be based on the reported eGFR value de-indexed from BSA by multiplying by the individual' s BSA and dividing by 1.73. CKD is diagnosed based on abnormaliti es of kidney structure or function, present for >3 months, with implication s for health and disease. CKD is classified and staged based on cause, eGFR and albuminuria (quantified as urine albumin to creatinine ratio). An eGFR >60 mL/min/1.73 m2 in the absence of increased urine albumin excretion or structural abnormaliti es does not represent CKD. eGFR CKD Interpretat ion (mL/min/1.7 3 m2) stage >=90 G1 Normal 60-89 G2 Mild decrease 45-59 G3A Mild to moderate decrease 30-44 G3B Moderate to severe decrease 15-29 G4 Severe decrease <15 G5 Kidney failure Ordering Provider: KINGSLEY PECK Report Released Date/Time: May 02, 2023 01:09 PM Reporting Lab: [facility] [address] [phone] Performing Lab: LULA FAR[facility] [address] [address] [facility] PANEL 5 SODIUM [MOLES/VOL UME] IN SERUM OR PLASMA 137 mmol/L 136 - 145 05/02 Specimen Type: PLASMA Comment: Vitamin B12 test may not yield results when protein level of sample is too elevated. Estimated Glomerular Filtration Rate (eGFR) calculated using the 2020 Chronic Kidney Disease-Epi demiology (CKD-EPI) Collaborati on creatinine equation; units of measure are mL/min/1.73 m2. Results are only valid for adults (>=18 years) whose serum creatinine is in a steady state. eGFR calculation s are not valid for patients with acute kidney injury and for patients on dialysis. Creatinine- based estimates of kidney function may also be inaccurate in patients with reduced creatinine generation due to decreased muscle mass (e.g., malnutritio n, severe hypoalbumin emia, sarcopenia, chronic neuromuscul ar disease, amputations , severe heart failure or liver disease) and in patients with increased creatinine generation due to increased muscle mass (e.g., muscle builders, anabolic steroids) or increased dietary intake. As drug clearance is proportiona l to total GFR and not GFR indexed to body surface area (BSA), in individuals with a BSA substantial ly different than 1.73 m2, drug dosing should be based on the reported eGFR value de-indexed from BSA by multiplying by the individual' s BSA and dividing by 1.73. CKD is diagnosed based on abnormaliti es of kidney structure or function, present for >3 months, with implication s for health and disease. CKD is classified and staged based on cause, eGFR and albuminuria (quantified as urine albumin to creatinine ratio). An eGFR >60 mL/min/1.73 m2 in the absence of increased urine albumin excretion or structural abnormaliti es does not represent CKD. eGFR CKD Interpretat ion (mL/min/1.7 3 m2) stage >=90 G1 Normal 60-89 G2 Mild decrease 45-59 G3A Mild to moderate decrease 30-44 G3B Moderate to severe decrease 15-29 G4 Severe decrease <15 G5 Kidney failure Ordering Provider: KINGSLEY PECK Report Released Date/Time: May 02, 2023 01:09 PM Reporting Lab: [facility] [address] [address] Performing Lab: LULA FARLEY [address] [address] [facility] 5 POTASSIUM [MOLES/VOL UME] IN SERUM OR PLASMA 4.4 mmol/L 3.5 - 5.1 05/02 Specimen Type: PLASMA Comment: Vitamin B12 test may not yield results when protein level of sample is too elevated. Estimated Glomerular Filtration Rate (eGFR) calculated using the 2020 Chronic Kidney Disease-Epi demiology (CKD-EPI) Collaborati on creatinine equation; units of measure are mL/min/1.73 m2. Results are only valid for adults (>=18 years) whose serum creatinine is in a steady state. eGFR calculation s are not valid for patients with acute kidney injury and for patients on dialysis. Creatinine- based estimates of kidney function may also be inaccurate in patients with reduced creatinine generation due to decreased muscle mass (e.g., malnutritio n, severe hypoalbumin emia, sarcopenia, chronic neuromuscul ar disease, amputations , severe heart failure or liver disease) and in patients with increased creatinine generation due to increased muscle mass (e.g., muscle builders, anabolic steroids) or increased dietary intake. As drug clearance is proportiona l to total GFR and not GFR indexed to body surface area (BSA), in individuals with a BSA substantial ly different than 1.73 m2, drug dosing should be based on the reported eGFR value de-indexed from BSA by multiplying by the individual' s BSA and dividing by 1.73. CKD is diagnosed based on abnormaliti es of kidney structure or function, present for >3 months, with implication s for health and disease. CKD is classified and staged based on cause, eGFR and albuminuria (quantified as urine albumin to creatinine ratio). An eGFR >60 mL/min/1.73 m2 in the absence of increased urine albumin excretion or structural abnormaliti es does not represent CKD. eGFR CKD Interpretat ion (mL/min/1.7 3 m2) stage >=90 G1 Normal 60-89 G2 Mild decrease 45-59 G3A Mild to moderate decrease 30-44 G3B Moderate to severe decrease 15-29 G4 Severe decrease <15 G5 Kidney failure Ordering Provider: KINGSLEY PECK Report Released Date/Time: May 02, 2023 01:09 PM Reporting Lab: LUL[facility] F[facility] [address] [address] Performing Lab: LULA FARLEY [address] [address] [facility] PANEL 5 CHLORIDE [MOLES/VOL UME] IN SERUM OR PLASMA 104 mmol/L 98 - 107 05/02 Specimen Type: PLASMA Comment: Vitamin B12 test may not yield results when protein level of sample is too elevated. Estimated Glomerular Filtration Rate (eGFR) calculated using the 2020 Chronic Kidney Disease-Epi demiology (CKD-EPI) Collaborati on creatinine equation; units of measure are mL/min/1.73 m2. Results are only valid for adults (>=18 years) whose serum creatinine is in a steady state. eGFR calculation s are not valid for patients with acute kidney injury and for patients on dialysis. Creatinine- based estimates of kidney function may also be inaccurate in patients with reduced creatinine generation due to decreased muscle mass (e.g., malnutritio n, severe hypoalbumin emia, sarcopenia, chronic neuromuscul ar disease, amputations , severe heart failure or liver disease) and in patients with increased creatinine generation due to increased muscle mass (e.g., muscle builders, anabolic steroids) or increased dietary intake. As drug clearance is proportiona l to total GFR and not GFR indexed to body surface area (BSA), in individuals with a BSA substantial ly different than 1.73 m2, drug dosing should be based on the reported eGFR value de-indexed from BSA by multiplying by the individual' s BSA and dividing by 1.73. CKD is diagnosed based on abnormaliti es of kidney structure or function, present for >3 months, with implication s for health and disease. CKD is classified and staged based on cause, eGFR and albuminuria (quantified as urine albumin to creatinine ratio). An eGFR >60 mL/min/1.73 m2 in the absence of increased urine albumin excretion or structural abnormaliti es does not represent CKD. eGFR CKD Interpretat ion (mL/min/1.7 3 m2) stage >=90 G1 Normal 60-89 G2 Mild decrease 45-59 G3A Mild to moderate decrease 30-44 G3B Moderate to severe decrease 15-29 G4 Severe decrease <15 G5 Kidney failure Ordering Provider: KINGSLEY PECK Report Released Date/Time: May 02, 2023 01:09 PM Reporting Lab: [facility] [address] [address] Performing Lab: [facility] [address] [address] [facility] PANEL 5 CARBON DIOXIDE, TOTAL [MOLES/VOL UME] IN SERUM OR PLASMA 26 mmol/L 22 - 29 05/02 Specimen Type: PLASMA Comment: Vitamin B12 test may not yield results when protein level of sample is too elevated. Estimated Glomerular Filtration Rate (eGFR) calculated using the 2020 Chronic Kidney Disease-Epi demiology (CKD-EPI) Collaborati on creatinine equation; units of measure are mL/min/1.73 m2. Results are only valid for adults (>=18 years) whose serum creatinine is in a steady state. eGFR calculation s are not valid for patients with acute kidney injury and for patients on dialysis. Creatinine- based estimates of kidney function may also be inaccurate in patients with reduced creatinine generation due to decreased muscle mass (e.g., malnutritio n, severe hypoalbumin emia, sarcopenia, chronic neuromuscul ar disease, amputations , severe heart failure or liver disease) and in patients with increased creatinine generation due to increased muscle mass (e.g., muscle builders, anabolic steroids) or increased dietary intake. As drug clearance is proportiona l to total GFR and not GFR indexed to body surface area (BSA), in individuals with a BSA substantial ly different than 1.73 m2, drug dosing should be based on the reported eGFR value de-indexed from BSA by multiplying by the individual' s BSA and dividing by 1.73. CKD is diagnosed based on abnormaliti es of kidney structure or function, present for >3 months, with implication s for health and disease. CKD is classified and staged based on cause, eGFR and albuminuria (quantified as urine albumin to creatinine ratio). An eGFR >60 mL/min/1.73 m2 in the absence of increased urine albumin excretion or structural abnormaliti es does not represent CKD. eGFR CKD Interpretat ion (mL/min/1.7 3 m2) stage >=90 G1 Normal 60-89 G2 Mild decrease 45-59 G3A Mild to moderate decrease 30-44 G3B Moderate to severe decrease 15-29 G4 Severe decrease <15 G5 Kidney failure Ordering Provider: KINGSLEY PECK Report Released Date/Time: May 02, 2023 01:09 PM Reporting Lab: [facility] [address] [address] Performing Lab: [facility] [address] [address] [facility] PANEL 5 CALCIUM [MASS/VOLU ME] IN SERUM OR PLASMA 10.5 mg/dL 8.4 - 10.2 05/02 H Specimen Type: PLASMA Comment: Vitamin B12 test may not yield results when protein level of sample is too elevated. Estimated Glomerular Filtration Rate (eGFR) calculated using the 2020 Chronic Kidney Disease-Epi demiology (CKD-EPI) Collaborati on creatinine equation; units of measure are mL/min/1.73 m2. Results are only valid for adults (>=18 years) whose serum creatinine is in a steady state. eGFR calculation s are not valid for patients with acute kidney injury and for patients on dialysis. Creatinine- based estimates of kidney function may also be inaccurate in patients with reduced creatinine generation due to decreased muscle mass (e.g., malnutritio n, severe hypoalbumin emia, sarcopenia, chronic neuromuscul ar disease, amputations , severe heart failure or liver disease) and in patients with increased creatinine generation due to increased muscle mass (e.g., muscle builders, anabolic steroids) or increased dietary intake. As drug clearance is proportiona l to total GFR and not GFR indexed to body surface area (BSA), in individuals with a BSA substantial ly different than 1.73 m2, drug dosing should be based on the reported eGFR value de-indexed from BSA by multiplying by the individual' s BSA and dividing by 1.73. CKD is diagnosed based on abnormaliti es of kidney structure or function, present for >3 months, with implication s for health and disease. CKD is classified and staged based on cause, eGFR and albuminuria (quantified as urine albumin to creatinine ratio). An eGFR >60 mL/min/1.73 m2 in the absence of increased urine albumin excretion or structural abnormaliti es does not represent CKD. eGFR CKD Interpretat ion (mL/min/1.7 3 m2) stage >=90 G1 Normal 60-89 G2 Mild decrease 45-59 G3A Mild to moderate decrease 30-44 G3B Moderate to severe decrease 15-29 G4 Severe decrease <15 G5 Kidney failure Ordering Provider: KINGSLEY PECK Report Released Date/Time: May 02, 2023 01:09 PM Reporting Lab: [facility] [address] [address] Performing Lab: [facility] [address] [address] [facility] PANEL 5 PROTEIN [MASS/VOLU ME] IN SERUM OR PLASMA 7.2 g/dL 6.4 - 8.3 05/02 Specimen Type: PLASMA Comment: Vitamin B12 test may not yield results when protein level of sample is too elevated. Estimated Glomerular Filtration Rate (eGFR) calculated using the 2020 Chronic Kidney Disease-Epi demiology (CKD-EPI) Collaborati on creatinine equation; units of measure are mL/min/1.73 m2. Results are only valid for adults (>=18 years) whose serum creatinine is in a steady state. eGFR calculation s are not valid for patients with acute kidney injury and for patients on dialysis. Creatinine- based estimates of kidney function may also be inaccurate in patients with reduced creatinine generation due to decreased muscle mass (e.g., malnutritio n, severe hypoalbumin emia, sarcopenia, chronic neuromuscul ar disease, amputations , severe heart failure or liver disease) and in patients with increased creatinine generation due to increased muscle mass (e.g., muscle builders, anabolic steroids) or increased dietary intake. As drug clearance is proportiona l to total GFR and not GFR indexed to body surface area (BSA), in individuals with a BSA substantial ly different than 1.73 m2, drug dosing should be based on the reported eGFR value de-indexed from BSA by multiplying by the individual' s BSA and dividing by 1.73. CKD is diagnosed based on abnormaliti es of kidney structure or function, present for >3 months, with implication s for health and disease. CKD is classified and staged based on cause, eGFR and albuminuria (quantified as urine albumin to creatinine ratio). An eGFR >60 mL/min/1.73 m2 in the absence of increased urine albumin excretion or structural abnormaliti es does not represent CKD. eGFR CKD Interpretat ion (mL/min/1.7 3 m2) stage >=90 G1 Normal 60-89 G2 Mild decrease 45-59 G3A Mild to moderate decrease 30-44 G3B Moderate to severe decrease 15-29 G4 Severe decrease <15 G5 Kidney failure Ordering Provider: KINGSLEY PECK Report Released Date/Time: May 02, 2023 01:09 PM Reporting Lab: [facility] [address] [facility] [address] Performing Lab: L[facility] [address] [facility] [phone] [facility] PANEL 5 ALBUMIN [MASS/VOLU ME] IN SERUM OR PLASMA 4.3 g/dL 3.5 - 5.2 05/02 Specimen Type: PLASMA Comment: Vitamin B12 test may not yield results when protein level of sample is too elevated. Estimated Glomerular Filtration Rate (eGFR) calculated using the 2020 Chronic Kidney Disease-Epi demiology (CKD-EPI) Collaborati on creatinine equation; units of measure are mL/min/1.73 m2. Results are only valid for adults (>=18 years) whose serum creatinine is in a steady state. eGFR calculation s are not valid for patients with acute kidney injury and for patients on dialysis. Creatinine- based estimates of kidney function may also be inaccurate in patients with reduced creatinine generation due to decreased muscle mass (e.g., malnutritio n, severe hypoalbumin emia, sarcopenia, chronic neuromuscul ar disease, amputations , severe heart failure or liver disease) and in patients with increased creatinine generation due to increased muscle mass (e.g., muscle builders, anabolic steroids) or increased dietary intake. As drug clearance is proportiona l to total GFR and not GFR indexed to body surface area (BSA), in individuals with a BSA substantial ly different than 1.73 m2, drug dosing should be based on the reported eGFR value de-indexed from BSA by multiplying by the individual' s BSA and dividing by 1.73. CKD is diagnosed based on abnormaliti es of kidney structure or function, present for >3 months, with implication s for health and disease. CKD is classified and staged based on cause, eGFR and albuminuria (quantified as urine albumin to creatinine ratio). An eGFR >60 mL/min/1.73 m2 in the absence of increased urine albumin excretion or structural abnormaliti es does not represent CKD. eGFR CKD Interpretat ion (mL/min/1.7 3 m2) stage >=90 G1 Normal 60-89 G2 Mild decrease 45-59 G3A Mild to moderate decrease 30-44 G3B Moderate to severe decrease 15-29 G4 Severe decrease <15 G5 Kidney failure Ordering Provider: KINGSLEY PECK Report Released Date/Time: May 02, 2023 01:09 PM Reporting Lab: [facility] [address] [facility] [address] Performing Lab: [address] [address] [facility] PANEL 5 BILIRUBIN. TOTAL [MASS/VOLU ME] IN SERUM OR PLASMA 0.5 mg/dL 0.2 - 1.2 05/02 Specimen Type: PLASMA Comment: Vitamin B12 test may not yield results when protein level of sample is too elevated. Estimated Glomerular Filtration Rate (eGFR) calculated using the 2020 Chronic Kidney Disease-Epi demiology (CKD-EPI) Collaborati on creatinine equation; units of measure are mL/min/1.73 m2. Results are only valid for adults (>=18 years) whose serum creatinine is in a steady state. eGFR calculation s are not valid for patients with acute kidney injury and for patients on dialysis. Creatinine- based estimates of kidney function may also be inaccurate in patients with reduced creatinine generation due to decreased muscle mass (e.g., malnutritio n, severe hypoalbumin emia, sarcopenia, chronic neuromuscul ar disease, amputations , severe heart failure or liver disease) and in patients with increased creatinine generation due to increased muscle mass (e.g., muscle builders, anabolic steroids) or increased dietary intake. As drug clearance is proportiona l to total GFR and not GFR indexed to body surface area (BSA), in individuals with a BSA substantial ly different than 1.73 m2, drug dosing should be based on the reported eGFR value de-indexed from BSA by multiplying by the individual' s BSA and dividing by 1.73. CKD is diagnosed based on abnormaliti es of kidney structure or function, present for >3 months, with implication s for health and disease. CKD is classified and staged based on cause, eGFR and albuminuria (quantified as urine albumin to creatinine ratio). An eGFR >60 mL/min/1.73 m2 in the absence of increased urine albumin excretion or structural abnormaliti es does not represent CKD. eGFR CKD Interpretat ion (mL/min/1.7 3 m2) stage >=90 G1 Normal 60-89 G2 Mild decrease 45-59 G3A Mild to moderate decrease 30-44 G3B Moderate to severe decrease 15-29 G4 Severe decrease <15 G5 Kidney failure Ordering Provider: KINGSLEY PECK Report Released Date/Time: May 02, 2023 01:09 PM Reporting Lab: [facility] [address] [place] [phone] Performing Lab: [address] [address] [facility] PANEL 5 ASPARTATE AMINOTRANS FERASE [ENZYMATIC ACTIVITY/V OLUME] IN SERUM OR PLASMA 19 U/L 5 - 34 05/02 Specimen Type: PLASMA Comment: Vitamin B12 test may not yield results when protein level of sample is too elevated. Estimated Glomerular Filtration Rate (eGFR) calculated using the 2020 Chronic Kidney Disease-Epi demiology (CKD-EPI) Collaborati on creatinine equation; units of measure are mL/min/1.73 m2. Results are only valid for adults (>=18 years) whose serum creatinine is in a steady state. eGFR calculation s are not valid for patients with acute kidney injury and for patients on dialysis. Creatinine- based estimates of kidney function may also be inaccurate in patients with reduced creatinine generation due to decreased muscle mass (e.g., malnutritio n, severe hypoalbumin emia, sarcopenia, chronic neuromuscul ar disease, amputations , severe heart failure or liver disease) and in patients with increased creatinine generation due to increased muscle mass (e.g., muscle builders, anabolic steroids) or increased dietary intake. As drug clearance is proportiona l to total GFR and not GFR indexed to body surface area (BSA), in individuals with a BSA substantial ly different than 1.73 m2, drug dosing should be based on the reported eGFR value de-indexed from BSA by multiplying by the individual' s BSA and dividing by 1.73. CKD is diagnosed based on abnormaliti es of kidney structure or function, present for >3 months, with implication s for health and disease. CKD is classified and staged based on cause, eGFR and albuminuria (quantified as urine albumin to creatinine ratio). An eGFR >60 mL/min/1.73 m2 in the absence of increased urine albumin excretion or structural abnormaliti es does not represent CKD. eGFR CKD Interpretat ion (mL/min/1.7 3 m2) stage >=90 G1 Normal 60-89 G2 Mild decrease 45-59 G3A Mild to moderate decrease 30-44 G3B Moderate to severe decrease 15-29 G4 Severe decrease <15 G5 Kidney failure Ordering Provider: KINGSLEY PECK Report Released Date/Time: May 02, 2023 01:09 PM Reporting Lab: LULA FAR[facility] [address] [address] Performing Lab: LULA FARLEY [address] [address] [facility] PANEL 5 ALANINE AMINOTRANS FERASE [ENZYMATIC ACTIVITY/V OLUME] IN SERUM OR PLASMA 19 U/L 0 - 55 05/02 Specimen Type: PLASMA Comment: Vitamin B12 test may not yield results when protein level of sample is too elevated. Estimated Glomerular Filtration Rate (eGFR) calculated using the 2020 Chronic Kidney Disease-Epi demiology (CKD-EPI) Collaborati on creatinine equation; units of measure are mL/min/1.73 m2. Results are only valid for adults (>=18 years) whose serum creatinine is in a steady state. eGFR calculation s are not valid for patients with acute kidney injury and for patients on dialysis. Creatinine- based estimates of kidney function may also be inaccurate in patients with reduced creatinine generation due to decreased muscle mass (e.g., malnutritio n, severe hypoalbumin emia, sarcopenia, chronic neuromuscul ar disease, amputations , severe heart failure or liver disease) and in patients with increased creatinine generation due to increased muscle mass (e.g., muscle builders, anabolic steroids) or increased dietary intake. As drug clearance is proportiona l to total GFR and not GFR indexed to body surface area (BSA), in individuals with a BSA substantial ly different than 1.73 m2, drug dosing should be based on the reported eGFR value de-indexed from BSA by multiplying by the individual' s BSA and dividing by 1.73. CKD is diagnosed based on abnormaliti es of kidney structure or function, present for >3 months, with implication s for health and disease. CKD is classified and staged based on cause, eGFR and albuminuria (quantified as urine albumin to creatinine ratio). An eGFR >60 mL/min/1.73 m2 in the absence of increased urine albumin excretion or structural abnormaliti es does not represent CKD. eGFR CKD Interpretat ion (mL/min/1.7 3 m2) stage >=90 G1 Normal 60-89 G2 Mild decrease 45-59 G3A Mild to moderate decrease 30-44 G3B Moderate to severe decrease 15-29 G4 Severe decrease <15 G5 Kidney failure Ordering Provider: KINGSLEY PECK Report Released Date/Time: May 02, 2023 01:09 PM Reporting Lab: LULA F[facility] [address] [phone] Performing Lab: [address] [address] [facility] PANEL 5 ANION GAP 3 IN SERUM OR PLASMA 7 meq/L 3 - 19 05/02 Specimen Type: PLASMA Comment: Vitamin B12 test may not yield results when protein level of sample is too elevated. Estimated Glomerular Filtration Rate (eGFR) calculated using the 2020 Chronic Kidney Disease-Epi demiology (CKD-EPI) Collaborati on creatinine equation; units of measure are mL/min/1.73 m2. Results are only valid for adults (>=18 years) whose serum creatinine is in a steady state. eGFR calculation s are not valid for patients with acute kidney injury and for patients on dialysis. Creatinine- based estimates of kidney function may also be inaccurate in patients with reduced creatinine generation due to decreased muscle mass (e.g., malnutritio n, severe hypoalbumin emia, sarcopenia, chronic neuromuscul ar disease, amputations , severe heart failure or liver disease) and in patients with increased creatinine generation due to increased muscle mass (e.g., muscle builders, anabolic steroids) or increased dietary intake. As drug clearance is proportiona l to total GFR and not GFR indexed to body surface area (BSA), in individuals with a BSA substantial ly different than 1.73 m2, drug dosing should be based on the reported eGFR value de-indexed from BSA by multiplying by the individual' s BSA and dividing by 1.73. CKD is diagnosed based on abnormaliti es of kidney structure or function, present for >3 months, with implication s for health and disease. CKD is classified and staged based on cause, eGFR and albuminuria (quantified as urine albumin to creatinine ratio). An eGFR >60 mL/min/1.73 m2 in the absence of increased urine albumin excretion or structural abnormaliti es does not represent CKD. eGFR CKD Interpretat ion (mL/min/1.7 3 m2) stage >=90 G1 Normal 60-89 G2 Mild decrease 45-59 G3A Mild to moderate decrease 30-44 G3B Moderate to severe decrease 15-29 G4 Severe decrease <15 G5 Kidney failure Ordering Provider: KINGSLEY PECK Report Released Date/Time: May 02, 2023 01:09 PM Reporting Lab: LUL[facility] F[facility] [address] [address] Performing Lab: LULA FARLEY [address] [address] [facility] PANEL 5 ALKALINE PHOSPHATAS E [ENZYMATIC ACTIVITY/V OLUME] IN SERUM OR PLASMA 74 U/L 40 - 150 05/02 Specimen Type: PLASMA Comment: Vitamin B12 test may not yield results when protein level of sample is too elevated. Estimated Glomerular Filtration Rate (eGFR) calculated using the 2020 Chronic Kidney Disease-Epi demiology (CKD-EPI) Collaborati on creatinine equation; units of measure are mL/min/1.73 m2. Results are only valid for adults (>=18 years) whose serum creatinine is in a steady state. eGFR calculation s are not valid for patients with acute kidney injury and for patients on dialysis. Creatinine- based estimates of kidney function may also be inaccurate in patients with reduced creatinine generation due to decreased muscle mass (e.g., malnutritio n, severe hypoalbumin emia, sarcopenia, chronic neuromuscul ar disease, amputations , severe heart failure or liver disease) and in patients with increased creatinine generation due to increased muscle mass (e.g., muscle builders, anabolic steroids) or increased dietary intake. As drug clearance is proportiona l to total GFR and not GFR indexed to body surface area (BSA), in individuals with a BSA substantial ly different than 1.73 m2, drug dosing should be based on the reported eGFR value de-indexed from BSA by multiplying by the individual' s BSA and dividing by 1.73. CKD is diagnosed based on abnormaliti es of kidney structure or function, present for >3 months, with implication s for health and disease. CKD is classified and staged based on cause, eGFR and albuminuria (quantified as urine albumin to creatinine ratio). An eGFR >60 mL/min/1.73 m2 in the absence of increased urine albumin excretion or structural abnormaliti es does not represent CKD. eGFR CKD Interpretat ion (mL/min/1.7 3 m2) stage >=90 G1 Normal 60-89 G2 Mild decrease 45-59 G3A Mild to moderate decrease 30-44 G3B Moderate to severe decrease 15-29 G4 Severe decrease <15 G5 Kidney failure Ordering Provider: KINGSLEY PECK Report Released Date/Time: May 02, 2023 01:09 PM Reporting Lab: LULA FAR[facility] [address] [address] Performing Lab: LULA FARLEY [address] [address] [facility] PANEL 5 GLOMERULAR FILTRATION RATE/1.73 SQ M.PREDICTE D [VOLUME RATE/AREA] IN SERUM, PLASMA OR BLOOD BY CREATININE -BASED FORMULA (CKD-EPI 2020) 83 05/02 Specimen Type: PLASMA Comment: Vitamin B12 test may not yield results when protein level of sample is too elevated. Estimated Glomerular Filtration Rate (eGFR) calculated using the 2020 Chronic Kidney Disease-Epi demiology (CKD-EPI) Collaborati on creatinine equation; units of measure are mL/min/1.73 m2. Results are only valid for adults (>=18 years) whose serum creatinine is in a steady state. eGFR calculation s are not valid for patients with acute kidney injury and for patients on dialysis. Creatinine- based estimates of kidney function may also be inaccurate in patients with reduced creatinine generation due to decreased muscle mass (e.g., malnutritio n, severe hypoalbumin emia, sarcopenia, chronic neuromuscul ar disease, amputations , severe heart failure or liver disease) and in patients with increased creatinine generation due to increased muscle mass (e.g., muscle builders, anabolic steroids) or increased dietary intake. As drug clearance is proportiona l to total GFR and not GFR indexed to body surface area (BSA), in individuals with a BSA substantial ly different than 1.73 m2, drug dosing should be based on the reported eGFR value de-indexed from BSA by multiplying by the individual' s BSA and dividing by 1.73. CKD is diagnosed based on abnormaliti es of kidney structure or function, present for >3 months, with implication s for health and disease. CKD is classified and staged based on cause, eGFR and albuminuria (quantified as urine albumin to creatinine ratio). An eGFR >60 mL/min/1.73 m2 in the absence of increased urine albumin excretion or structural abnormaliti es does not represent CKD. eGFR CKD Interpretat ion (mL/min/1.7 3 m2) stage >=90 G1 Normal 60-89 G2 Mild decrease 45-59 G3A Mild to moderate decrease 30-44 G3B Moderate to severe decrease 15-29 G4 Severe decrease <15 G5 Kidney failure Ordering Provider: KINGSLEY PECK Report Released Date/Time: May 02, 2023 01:09 PM Reporting Lab: LULA FARLEY [address] [address] Performing Lab: LULA FARLEY [address] [address] [facility] GLYCOHEM OGLOBIN HEMOGLOBIN A1C/HEMOGL OBIN.TOTAL IN BLOOD BY HPLC 5.5 4.4 - 6.4 05/02 Specimen Type: BLOOD Comment: [facility] guidelines for A1c interpretat ion: Glycemic control targets are based on Shared Decision Making between clinicians and patients. Criteria used to establish an A1c target recommendat ion can be found at https://www .ks.gov/rich lityandpati entsafety/ and include the use of result accuracy and precision(C V) of the A1c tests clinicians utilize at their own sites of practice. Values obtained from A1C measurement s can vary. For typical A1C assays, a reported value of 7.0 could actually be between 6.72 and 7.28 if measured by a reference method. A reported value of 9.0 could actually be between 8.73 and 9.27. Ref: https://ngs p.org/CAPda ta.asp. The in-house [employer] D-100 analyzer has a historical CV <= 2%. Contact the laboratory for further performance characteris tics of this assay. Ordering Provider: KINGSLEY PECK Report Released Date/Time: May 02, 2023 01:09 PM Reporting Lab: [place] [phone] Performing Lab: [place] [phone] [facility] CBC/PLT LEUKOCYTES [#/VOLUME] IN BLOOD BY AUTOMATED COUNT 7.4 10*3/uL 5.0 - 10.0 05/02 Specimen Type: BLOOD No comment entered. Ordering Provider: KINGSLEY PECK Report Released Date/Time: May 02, 2023 01:09 PM Reporting Lab: [address] [address] Performing Lab: [place] [phone] [facility] CBC/PLT ERYTHROCYT ES [#/VOLUME] IN BLOOD BY AUTOMATED COUNT 5.86 10*6/uL 4.6 - 6.2 05/02 Specimen Type: BLOOD No comment entered. Ordering Provider: KINGSLEY PECK Report Released Date/Time: May 02, 2023 01:09 PM Reporting Lab: [address] [address] Performing Lab: [address] [address] [facility] CBC/PLT HEMOGLOBIN [MASS/VOLU ME] IN BLOOD 16.2 g/dL 14.0 - 18.0 05/02 Specimen Type: BLOOD No comment entered. Ordering Provider: KINGSLEY PECK Report Released Date/Time: May 02, 2023 01:09 PM Reporting Lab: [place] [id number] Performing Lab: [place] [phone] [facility] CBC/PLT HEMATOCRIT [VOLUME FRACTION] OF BLOOD BY AUTOMATED COUNT 49.0 42.0 - 52.0 05/02 Specimen Type: BLOOD No comment entered. Ordering Provider: KINGSLEY PECK Report Released Date/Time: May 02, 2023 01:09 PM Reporting Lab: [place] [id number] Performing Lab: [place] [phone] [facility] CBC/PLT MCV [ENTITIC VOLUME] BY AUTOMATED COUNT 83.6 fL 80.0 - 94.0 05/02 Specimen Type: BLOOD No comment entered. Ordering Provider: KINGSLEY PEKC Report Released Date/Time: May 02, 2023 01:09 PM Reporting Lab: [place] [phone] Performing Lab: [place] [phone] [facility] CBC/PLT MCH [ENTITIC MASS] BY AUTOMATED COUNT 27.6 pg 27.0 - 31.0 05/02 Specimen Type: BLOOD No comment entered. Ordering Provider: KINGSLEY PECK Report Released Date/Time: May 02, 2023 01:09 PM Reporting Lab: [address] [address] Performing Lab: [address] [address] [facility] CBC/PLT MCHC [MASS/VOLU ME] BY AUTOMATED COUNT 33.1 g/dL 32.0 - 36.0 05/02 Specimen Type: BLOOD No comment entered. Ordering Provider: KINGSLEY PECK Report Released Date/Time: May 02, 2023 01:09 PM Reporting Lab: [place] [address] Performing Lab: [address] CBC/PLT PLATELETS [#/VOLUME] IN BLOOD 194 10*3/uL 150 - 450 05/02 Specimen Type: BLOOD No comment entered. Ordering Provider: KINGSLEY PECK Report Released Date/Time: May 02, 2023 01:09 PM Reporting Lab: [place] [address] Performing Lab: [address] CBC/PLT PLATELET MEAN VOLUME [ENTITIC VOLUME] IN BLOOD 11.1 fL 9.0 - 13.1 05/02 Specimen Type: BLOOD No comment entered. Ordering Provider: KINGSLEY PECK Report Released Date/Time: May 02, 2023 01:09 PM Reporting Lab: [place] [address] Performing Lab: [address] CBC/PLT ERYTHROCYT E DISTRIBUTI ON WIDTH [ENTITIC VOLUME] BY AUTOMATED COUNT 12.3 11.0 - 16.0 05/02 Specimen Type: BLOOD No comment entered. Ordering Provider: KINGSLEY PECK Report Released Date/Time: May 02, 2023 01:09 PM Reporting Lab: [place] [address] Performing Lab: [address] CBC/PLT NUCLEATED ERYTHROCYT ES/100 ERYTHROCYT ES IN BLOOD 0.0 0.0 - 0.0 05/02 Specimen Type: BLOOD No comment entered. Ordering Provider: KINGSLEY PECK Report Released Date/Time: May 02, 2023 01:09 PM Reporting Lab: [place] [facility] [address] [facility] [address] Performing Lab: [place] [address] [address] [facility] TSH THYROTROPI N [UNITS/VOL UME] IN SERUM OR PLASMA 1.1770 m[IU]/mL 0.3500 - 4.9400 05/02 Specimen Type: PLASMA Comment: Vitamin B12 test may not yield results when protein level of sample is too elevated. Estimated Glomerular Filtration Rate (eGFR) calculated using the 2020 Chronic Kidney Disease-Epi demiology (CKD-EPI) Collaborati on creatinine equation; units of measure are mL/min/1.73 m2. Results are only valid for adults (>=18 years) whose serum creatinine is in a steady state. eGFR calculation s are not valid for patients with acute kidney injury and for patients on dialysis. Creatinine- based estimates of kidney function may also be inaccurate in patients with reduced creatinine generation due to decreased muscle mass (e.g., malnutritio n, severe hypoalbumin emia, sarcopenia, chronic neuromuscul ar disease, amputations , severe heart failure or liver disease) and in patients with increased creatinine generation due to increased muscle mass (e.g., muscle builders, anabolic steroids) or increased dietary intake. As drug clearance is proportiona l to total GFR and not GFR indexed to body surface area (BSA), in individuals with a BSA substantial ly different than 1.73 m2, drug dosing should be based on the reported eGFR value de-indexed from BSA by multiplying by the individual' s BSA and dividing by 1.73. CKD is diagnosed based on abnormaliti es of kidney structure or function, present for >3 months, with implication s for health and disease. CKD is classified and staged based on cause, eGFR and albuminuria (quantified as urine albumin to creatinine ratio). An eGFR >60 mL/min/1.73 m2 in the absence of increased urine albumin excretion or structural abnormaliti es does not represent CKD. eGFR CKD Interpretat ion (mL/min/1.7 3 m2) stage >=90 G1 Normal 60-89 G2 Mild decrease 45-59 G3A Mild to moderate decrease 30-44 G3B Moderate to severe decrease 15-29 G4 Severe decrease <15 G5 Kidney failure Ordering Provider: KINGSLEY PECK Report Released Date/Time: May 02, 2023 01:09 PM Reporting Lab: [place] [facility] [address] [facility] [address] Performing Lab: [place] [address] [address] [facility] B12 VITAMIN COBALAMIN (VITAMIN B12) [MASS/VOLU ME] IN SERUM OR PLASMA 389 pg/mL 213 - 816 05/02 Specimen Type: PLASMA Comment: Vitamin B12 test may not yield results when protein level of sample is too elevated. Estimated Glomerular Filtration Rate (eGFR) calculated using the 2020 Chronic Kidney Disease-Epi demiology (CKD-EPI) Collaborati on creatinine equation; units of measure are mL/min/1.73 m2. Results are only valid for adults (>=18 years) whose serum creatinine is in a steady state. eGFR calculation s are not valid for patients with acute kidney injury and for patients on dialysis. Creatinine- based estimates of kidney function may also be inaccurate in patients with reduced creatinine generation due to decreased muscle mass (e.g., malnutritio n, severe hypoalbumin emia, sarcopenia, chronic neuromuscul ar disease, amputations , severe heart failure or liver disease) and in patients with increased creatinine generation due to increased muscle mass (e.g., muscle builders, anabolic steroids) or increased dietary intake. As drug clearance is proportiona l to total GFR and not GFR indexed to body surface area (BSA), in individuals with a BSA substantial ly different than 1.73 m2, drug dosing should be based on the reported eGFR value de-indexed from BSA by multiplying by the individual' s BSA and dividing by 1.73. CKD is diagnosed based on abnormaliti es of kidney structure or function, present for >3 months, with implication s for health and disease. CKD is classified and staged based on cause, eGFR and albuminuria (quantified as urine albumin to creatinine ratio). An eGFR >60 mL/min/1.73 m2 in the absence of increased urine albumin excretion or structural abnormaliti es does not represent CKD. eGFR CKD Interpretat ion (mL/min/1.7 3 m2) stage >=90 G1 Normal 60-89 G2 Mild decrease 45-59 G3A Mild to moderate decrease 30-44 G3B Moderate to severe decrease 15-29 G4 Severe decrease <15 G5 Kidney failure Ordering Provider: KINGSLEY PECK Report Released Date/Time: May 02, 2023 01:09 PM Reporting Lab: [address] [address] Performing Lab: [place] [phone] [place] [address] 25-OH VITAMIN D 25-HYDROXY VITAMIN D3 [MASS/VOLU ME] IN SERUM OR PLASMA 29.1 ng/mL 20.0 - 50.0 05/02 Specimen Type: SERUM Comment: The National Institutes of Health (NIH) recommendat ions state: <12 ng/mL - Deficient 20 - 50 ng/mL - Optimal Levels - adequate for most people. >50 ng/mL - Increased risk of hypercalciu mauro/other health problems - clinical correlation is required. These reference ranges represent clinical decision values rather than population- based reference values. Ordering Provider: KINGSLEY PECK Report Released Date/Time: May 02, 2023 01:09 PM Reporting Lab: [address] [address] Performing Lab: [place] [phone] [place] [address] HBSAB HEPATITIS B VIRUS SURFACE AB [PRESENCE] IN SERUM BY IMMUNOASSA Y Nonreact karen 05/02 Specimen Type: SERUM Comment: FOR HBSAB TESTING: Reactive HBsAb denotes immunity by vaccination or recovery from Hepatitis B infection. Individuals found to be reactive for both HBV Core AB total and HBsAb are immune due to prior natural infection. Individuals found to be nonreactive for HBV Core AB total and reactive for HBsAb (anti-HBs) are immune due to prior immunizatio n. Individuals found to be reactive for HBV Core AB total and nonreactive for HBsAb (anti-HBs) are considered to have a current Hepatitis B infection, either acute or chronic. Individuals found to be nonreactive for both HBV Core AB total and HBsAb are at risk for Hepatitis B infection (HBV) and HBV immunizatio n should be considered. FOR HBSAG TEST: Reactive HBsAG indicates acute or chronic Hepatitis B infection. Ordering Provider: KINGSLEY PECK Report Released Date/Time: May 02, 2023 01:09 PM Reporting Lab: [address] [address] Performing Lab: [address] [address] [facility] HBSAG HEPATITIS B VIRUS SURFACE AG [PRESENCE] IN SERUM OR PLASMA BY IMMUNOASSA Y Nonreact karen 05/02 Specimen Type: SERUM Comment: FOR HBSAB TESTING: Reactive HBsAb denotes immunity by vaccination or recovery from Hepatitis B infection. Individuals found to be reactive for both HBV Core AB total and HBsAb are immune due to prior natural infection. Individuals found to be nonreactive for HBV Core AB total and reactive for HBsAb (anti-HBs) are immune due to prior immunizatio n. Individuals found to be reactive for HBV Core AB total and nonreactive for HBsAb (anti-HBs) are considered to have a current Hepatitis B infection, either acute or chronic. Individuals found to be nonreactive for both HBV Core AB total and HBsAb are at risk for Hepatitis B infection (HBV) and HBV immunizatio n should be considered. FOR HBSAG TEST: Reactive HBsAG indicates acute or chronic Hepatitis B infection. Ordering Provider: KINGSLEY PECK Report Released Date/Time: May 02, 2023 01:09 PM Reporting Lab: [address] [address] Performing Lab: [address] [address] [facility] Vital Signs Combined list of inpatient and outpatient Vital Signs from Department of Defense and Veterans Affairs, ranging from 12 months to all on record, depending upon the facility. Vital Sign Value Date Comments Source SYSTOLIC BLOOD PRESSURE 113 12/05/2023 15:31:04 [facility] DIASTOLIC BLOOD PRESSURE 92 12/05/2023 15:31:04 [facility] PULSE OXIMETRY 98 12/05/2023 15:31:04 [facility] PULSE 67 12/05/2023 15:31:04 KAIN DWYER [facility] Encounters Combined list of: 1) Encounters from Department of Veterans Affairs facilities going backup to the last 18 months, not all VA inpatient encounters are included; 2) Encounters from the Department of Defense facilities going backup to 280 months. Location Location Details Encounter Type Encounter Number Reason For Visit Attending Provider ADM Date DC Date Status Disposition Source [facility] HALLEY Torres(Family Practice Clinic 005) OUTPATIENT [id number] go over records for flight steffi PARKSMAYAY Manju 10/20 Released w/o Limitations [facility] [place] [place] [facility] [place] [facility] 57) [place] OUTPATIENT [id number] admin TIMBO Tolentino 01/11 Released w/o Limitations [place]) OUTPATIENT [id number] BEATRIS PATEL 04/13 [place]ased [place] Limitations [place]) [place] [id number] swollen painful lip CLARE RIVERS 04/14 Released with Work/Duty Limitations [place] DIRECT TO [facility] FROM OTHER THAN ER OR [facility] [id number] CHRISTIE MENDOZA 04/15 [facility] [place] [place] [facility]) [place] [id number] f/u hospiti zation CHRISTIE MENDOZA 04/23 [place] [facility] [place]) [place] [id number] laser for HM not TYREE Cai 05/14 Released w/o Limitations [facility] [facility] OUTPATIENT [id number] TYP, PPD BOB PENALOZA 05/23 Released w/o Limitations [facility] [facility]) OUTPATIENT [id number] [facility] FAUZIA SEVILLA 05/23 Released w/o Limitations [facility] [facility]) [place] [id number] headCLAUDIA Carlton 05/24 Released w/o Limitations [facility] [facility] OUT[place] [id number] ROT EYE OMAR HERNADEZ 05/24 Released w/o Limitations [facility] [facility]PATIENT [id number] VERONICA MCGOVERN 05/25 Released w/o Limitations [facility] [facility] OUTPATIENT [id number] PERSONA L EVAL/PO S REF CONSULT TIMBO JACK 05/29 Released w/o Limitations [facility] [place] [facility] [id number] EYEEXAM OMAR HERNADEZ 06/05 Released w/o Limitations [facility] [facility] OUTPATIENT [id number] SEADUTY SCREEN KAYA MELGOZA 10/24 Released w/o Limitations [facility] [facility] [place] TELE CONSULT [id number] [facility] triage- sore with MRSA HERMAN ROWAN Raquel 10/28 [place] DIRECT TO [facility] FROM OTHER THAN ER OR [facility] [id number] CIRO JUNE Daren 10/29 RETURNED [place] DUTY [place] OUTPATIENT [id number] ROT EYE OMAR HERNADEZ 01/08 [place] Limitations [place] OUTPATIENT [id number] admin up FLACA GOODWIN 01/28 [place] [facility] ([facility] OUTPATIENT [id number] left neck and shoulde r pain x 2 weeks EPIFANIO PIMENTEL 03/20 [place] w/o Limitations [place] ([facility])) [place] ([facility])) OUTPATIENT [id number] OMT EPIFANIO PIMENTEL 03/25 Released [place]/o Limitations [place] ([facility])) [place] ([place] [facility]) OUTPATIENT [id number] BHAVIN FLORES 04/08 [place]ased [place]/o Limitations [place] (Orthoped ic Clinic) OUTPATIENT [id number] CERVICA MIGUEL MUNIZ I 04/09 [place]/o Limitations [place] ([place] OUTPATIENT [id number] BHAVIN FLORES 04/09 [place]/o Limitations [place] [facility] OUTPATIENT [id number] BHAVIN FLORES 04/10 [place]/o Limitations [place] [facility] OUTPATIENT [id number] BHAVIN FLORESBELE 04/11 Released w/o Limitations [place] [place] [facility] OUTPATIENT [id number] BAHVIN FLORES CYBELE 04/12 [place]ased w/o Limitations [place] [facility] OUTPATIENT [id number] BHAVIN FLORESBELE 04/16 [place]ased [place]/o Limitations [place] [facility] OUTPATIENT [id number] BHAVIN FLORES CLARKBELE 04/17 [place]ased [place]/o Limitations [place] [facility] OUTPATIENT [id number] BHAVIN FLORES CLARKBELNiki 04/18 Released [place]/o Limitations [place] [facility] OUTPATIENT [id number] BHAVIN FLORES VÍCTOR 04/19 [place]ased [place]/o Limitations [place] [place] Sick [place] OUTPATIENT [id number] EVAL NECK/SH OULDER PAIN CIRO MORGAN 08/05 [place] ) OUTPATIENT [id number] follow up c-lense s only MALINDA VÁSQUEZ 11/06 [place] Lim[place] [place] OUTPATIENT [id number] ppd, MARIE Camacho 04/22 [place] Lim[place] [place]) OUTPATIENT [id number] [facility] UIC: [id number] FAUZIA SEVILLA 04/22 [place] OUTPATIENT [id number] SHORT CIRILO HERNANDES 04/22 [place] [facility]) [place] [place] OUTPATIENT [id number] lt middle finger cut CIRILO HERNANDES 11/09 [place] Lim[place] [place] OUTPATIENT [id number] F/U LAC L HAND CIRILO HERNANDES 11/11 [place]) OUTPATIENT [id number] hcp MAXIMINO COX 11/19 [place] [place] OUTPATIENT [id number] SHORT CIRILO MCKEON 11/19 [place] TELE CONSULT [id number] DOUGLAS Holguin 02/02 [place] OUTPATIENT [id number] LONG FORM MEJIA PIMENTEL 05/02 [place] [facility]) [place] [place] OUTPATIENT [id number] PPD, Typhoid CHINO BAER 05/02 [place]ased [place] Lim[place] [place]) OUT[place]IENT [id number] [facility]: [id number] MASON LEWIS Aga 05/02 Released w/o Limitations [place]) [facility](Op [facility] [place]) OUTPATIENT [id number] eye exam-lv c consult EPIFANIO TUCKER 12/15 Released w/o Limitations [facility]( [facility] [place]) [facility]) OUTPATIENT [id number] emergen cy room follow up: PVC GAMALIEL BOX 01/11 Released w/o Limitations [facility]( Int Med CL [facility] Medical [facility]) [facility](In [facility]grative [facility]) OUTPATIENT [id number] anxiety TIA BEY SAMIA 01/12 Released w/o Limitations [facility]( Integra tive [facility] Well BE) [facility]) OUTPATIENT [id number] f/u on mental health per pt GAMALIEL BOX 01/17 Released w/o Limitations [facility]( Int Med CL [facility] Medical Home [facility]) [facility](In tegrative [facility]) OUTPATIENT [id number] f/up TIA BEY SAMIA 01/26 Released w/o Limitations [facility]( Integra tive [facility] Well BE) [facility] t Med CL [facility] Medical [facility]) TELE CONSULT [id number] Medicat ion Request AGNES CAMARILLO 03/01 [facility]( Int Med [facility]) [facility]) OUTPATIENT [id number] First appoint ment with PCM, needs to have Zoloft renewed PENDZHANE MORALES JR 03/06 Released w/o Limitations [facility]( Int Med CL [facility]) [facility](Op hthalmolo gy CR[facility] [place]) OUTPATIENT [id number] PREOP/N O SX RODRIGUEZ PROCTOR 04/10 Released w/o Limitations [facility]( [facility]ology [facility] [place]) [facility]) OUTPATIENT [id number] MINOR CARDENAS 05/12 Released w/o Limitations [facility]( [facility]) [facility] t [facility]) TELE CONSULT [id number] Refill on Zoloft 100mg ZHANE MURRAY JR 06/08 [facility]( Int Med [facility]) [facility]) OUTPATIENT [id number] DISCUSS POSSIBL E MEDICAT ION PENDERGZHANE AYALA JR 08/30 Released w/o Limitations [facility]( Int Med [facility]) [facility]) TELE CONSULT [id number] call pt back with new dose GRIGSBYDONAL STACY 09/17 [facility]( Int Med [facility]) [facility] t Med [facility]) TELE CONSULT [id number] BILLIE TITUS 10/01 [facility]( Int Med [facility]) [facility] t [facility]) OUTPATIENT [id number] possibl e neck pain PENDERGRAP ZHANE Schumacher JR 12/04 Released w/o Limitations [facility]( Int Med [facility]) [facility]) OUTPATIENT [id number] neck pain GAMALIEL BOX 12/17 Released w/o Limitations [facility]( Int [facility]) [facility] t [facility]) TELE CONSULT [id number] Notes Entered by: LYNDON CEDENO 21 Dec 2011 0828 ------- ------- ------- ---- PENDERGRAP ZHANE Schumacher JR 12/20 [facility]( Int Med [facility]) [facility]) OUTPATIENT [id number] Notes Entered by: CATE ROTHMAN 29 Dec 2011 1229 ------- ------- ------- ------- -- F/U PRICE LOYA 12/28 Released w/o Limitations [facility]( [facility] [place]) OUTPATIENT [id number] siHARI Cage 01/03 Released w/o Limitations [facility]( Int Med [facility]) [facility] t [facility]) TELE CONSULT [id number] Notes Entered by: WINTER TOPETE 09 Jan 2012 0732 ------- ------- ------- ------- -- Medicat ion renewal ZHANE MURRAY JR 01/08 [facility]( Int [facility]) [facility](Ne [facility]rosurg [facility] [place]) OUTPATIENT [id number] Woke up with pain on his neck PRICE KELLY 01/14 Released w/o Limitations [facility]( [facility] [place]) [facility](Ri [facility]rosurg [facility] [place]) OUTPATIENT [id number] CERVICA LGPRICE JENKINS 01/17 Released w/o Limitations [facility]( [facility] [place]) [facility](Ca rdiology Clinic [place]) OUTPATIENT [id number] JE ROQUE 01/18 Released w/o Limitations [facility]( [facility]iol [facility]gy [facility] [place]) [facility](Ia rdiology Clinic [place]) OUTPATIENT [id number] Notes Entered by: RUBA HUBER 29 Jan 2012 1740 ------- ------- ------- ------- -- ECHO 012 DARCIE GAO 01/28 Released w/o Limitations [facility]( [facility] [place]) [facility](Ri [facility]rosurg [facility] [place]) OUTPATIENT [id number] f/u post op wound check JAME CESAR 01/29 Released w/o Limitations [facility]( [facility] [place]) [facility](Ri [facility]rosurg [facility] [place]) OUTPATIENT [id number] F/U PRICE KELLY 03/01 Released w/o Limitations [facility]( [facility] [place]) [facility](Co mm Health/Pr ev Med Cl BE) OUTPATIENT [id number] Notes Entered by: DENISE CONKLIN 19 Mar 2012 1329 ------- ------- ------- ------- -- NORA Felton 03/19 Released w/o Limitations [facility]( Comm Health/ Prev Med Cl [facility]) [facility](Al dical [facility]iness [facility] [place]) OUTPATIENT [id number] pha/ANTONIO Padilla 04/23 Released w/o Limitations [facility]( [facility] [place]) [facility]) OUTPATIENT [id number] per pt needs PFA ZHANE JAVIER JR 04/23 Released w/o Limitations [facility]( Int Med [facility]) [facility](Al [facility]ical [facility] [place]) OUTPATIENT [id number] Notes Entered by: DEION MORRIS 29 Apr 2012 0826 ------- ------- ------- ------- -- Re-ANTONIO Brink 04/29 Released w/o Limitations [facility](In t Med CL K Medical [facility]) TELE CONSULT [id number] Notes Entered by: MARISOL AZEVEDO 20 Jun 2012 1054 ------- ------- ------- ------- -- Med refill SEEMA RUIZ 06/20 [facility]( [facility](Ri [facility]rosurg [facility] [place]) OUTPATIENT [id number] F/U PRICE KELLY 08/30 Released w/o Limitations [facility]( Neurosu rg [facility] [place] [facility]) [facility]) OUTPATIENT [id number] med adjustm MARGARITO Harrison 09/04 Released w/o Limitations [facility]( [facility]) [facility](Ps ychiatry Be) OUTPATIENT [id number] medicat ion evaluat ion POLLARDSIMRAN BAHENA Sandrine 09/09 Released w/o Limitations [facility]( Psychia try Be) [facility]) TELE CONSULT [id number] Notes Entered by: RADHA JIMENEZ 13 Sep 2012 1518 ------- ------- ------- ------- -- Lab results MARGARITO HER 09/13 [facility]( [facility]) [facility](Ps ychiatry Be) OUTPATIENT [id number] follow up SIMRAN POLLARD Sandrine 10/22 Released w/o Limitations [facility]( Psychia try Be) [facility](Op hthalmolo gy Comprehen sarah [place]) OUTPATIENT [id number] KEN NOVAK 10/28 Released w/o Limitations [facility]( Ophthal mology Compreh ensive [place] [facility]) [facility]) OUTPATIENT [id number] prt waiver marlenii COURTNEY Lake V 11/05 Released w/o Limitations [facility]( [facility]) [facility]) TELE CONSULT [id number] Notes Entered by: Sandrine RIVERA 28 Nov 2012 1105 ------- ------- ------- ------- -- Refills MENDY BAÑUELOS 11/28 [facility]( [facility]) [facility](In t Med Cons/Spec Care Cl [facility]) OUTPATIENT [id number] Dropped metal on foot RAUL FERNANDES 12/16 Released w/o Limitations [facility]( Int Med Cons/Sp ec Care Cl Be) [facility]) TELE CONSULT [id number] Notes Entered by: CHERYL HERRERA 07 Jan 2013 0722 ------- ------- ------- ------- -- Med refill ARIZAANTONIO GUILLEN Grady 01/07 [facility]( [facility]) [facility]) OUTPATIENT [id number] Follow up/Medi cation Renewal KATHRINEJEREMY Nilo 01/21 Released w/o Limitations [facility]( [facility]) [facility]) OUTPATIENT [id number] PRT DORITA HAGAN 03/26 Released w/o Limitations [facility]( [facility]) [facility](Op [facility]metry [facility] [place]) OUTPATIENT [id number] eye exam CHAU MEAD 04/09 [facility]ased w/o Limitations [facility]Al [facility]ical [facility] [place]) OUTPATIENT [id number] pha/erin y SHADE ABDI 04/10 Released w/o Limitations [facility]( Medical Readine [facility] [place]) [facility] [place]) OUTPATIENT [id number] Notes Entered by: ALFRED VIDAL 2013 0856 ------- ------- ------- ------- -- health educati on MARIA LUZ VIDAL 04/10 Released w/o Limitations [facility]( Medical Readine [facility] [place] [facility]) [facility](In t Med Cons/Spec Care Cl [facility]) OUTPATIENT [id number] Notes Entered by: SHAWNA KWOK 14 Apr 2013 0738 ------- ------- ------- ------- -- Lower back pain VE_JE ARORA 04/14 Released w/o Limitations [facility]( Int Med Cons/Sp ec Care Cl Be) [facility](Co mm Health/Pr ev Med Cl BE) OUTPATIENT [id number] Notes Entered by: KEVIN HERNANDEZ 27 May 2013 0845 ------- ------- ------- ------- -- OPAL RodriguezISTIAIN COLÓN 05/27 Released w/o Limitations [facility]( Comm Health/ Prev Med Cl BE) [facility](Sl eep (Pulm) Cl Be) TELE CONSULT [id number] Notes Entered by: JOEY BAY 27 May 2013 1527 ------- ------- ------- ------- -- Pt rick lopez and asking for a letter that says he is clear. Appt in NIC Agee Karen 05/27 [facility]( Sleep (Pulm) Cl [facility]) [facility] t [facility]) TELE CONSULT [id number] Notes Entered by: VANCE CONKLIN 10 Jul 2013 1006 ------- ------- ------- ------- -- Rx Renewal - pt MARIN De La Torre 07/10 [facility]( [facility]) [facility](Sl eep (Pulm) Cl Be) OUTPATIENT [id number] KIKO TREJO 07/10 Released w/o Limitations [facility]( Sleep (Pulm) Cl Be) [facility](Sl eep (Pulm) Cl Be) OUTPATIENT [id number] spit psg per KIKO Aranda 08/05 Released w/o Limitations [facility]( Sleep (Pulm) Cl Be) [facility] t [facility]) TELE CONSULT [id number] Notes Entered by: Nilo DOWLING 01 Sep 2013 1530 ------- ------- ------- ------- -- Medicat ion renewl BOLA DOWLING 09/01 [facility]( [facility]) [facility] t [facility]) TELE CONSULT [id number] Notes Entered by: Nilo DOWLING 02 Sep 2013 0905 ------- ------- ------- ------- -- Medicat ion refill BOLA DOWLING 09/02 [facility]( [facility]) [facility]) OUTPATIENT [id number] JORGE Flores 09/03 Released w/o Limitations [facility]( Int [facility]) [facility](In t Med Blue Cl Be) TELE CONSULT [id number] Notes Entered by: CONG CORRALES 03 Sep 2013 1054 ------- ------- ------- ------- -- PT referra ls not require d as require d by medical readine JORGE MUNGUIA 09/03 [facility]( Int Med Blue Cl Be) [facility](Al dical [facility]) OUTPATIENT [id number] rick hagan/KENJI Hunt 09/03 Released w/o Limitations [facility]( [facility]) [facility](Sl eep (Pulm) Cl Be) TELE CONSULT [id number] Notes Entered by: NATIVIDAD WALL 03 Sep 2013 1438 ------- ------- ------- ------- -- Sleep study results sent via user[employer]gents message . NIC HOLLINGSWORTH 09/03 [facility]( Sleep (Pulm) Cl Be) [facility] t Med [facility]) TELE CONSULT [id number] Notes Entered by: SHAKEEL LI 29 Oct 2013 1120 ------- ------- ------- ------- -- Appoint ment request LAMONT ETIENNE 10/29 [facility]( [facility]) [facility]) OUTPATIENT [id number] PRT/CHRISTINA ISAACS 10/30 Released w/o Limitations [facility]( [facility]) [facility]) OUTPATIENT [id number] 01nyys jaison MANNARMANDO ANTONIO Corcoran 11/07 Released w/o Limitations [facility]( Nutriti on [facility] a) [facility]( Red) OUTPATIENT [id number] est. care - request ing a behavor [facility] MIGUEL Baumann 03/31 Released w/o Limitations [facility]( Red) [facility]( Blue) OUTPATIENT [id number] Right knee infecte VIVIAN Jamil 04/17 Released w/o Limitations [facility]( Blue) [facility]( Blue) TELE CONSULT [id number] Notes Entered by: FIDELIA MCKEE 24 Apr 2014 0903 ------- ------- ------- ------- -- Labs for annual PHA EPIFANIO YOON 04/24 [facility]( Blue) [facility]( Red) OUTPATIENT [id number] MIGUEL Pack 04/30 Released w/o Limitations [facility]( Red) [facility]( [facility] OUTPATIENT [id number] Notes Entered by: CARLEE BENNETT 06 May 2014 0931 ------- ------- ------- ------- -- Staff- THIAGO Kurtz 05/06 Released w/o Limitations [facility]( Red) TELE CONSULT [id number] Notes Entered by: SUN HERNANDEZ 06 May 2014 1424 ------- ------- ------- ------- -- medicat MIGUEL Saba 05/06 [facility]( Red) [facility]( Blue) OUTPATIENT [id number] Notes Entered by: FIDELIA MCKEE 07 May 2014 1127 ------- ------- ------- ------- -- EPIFANIO KELLEY 05/07 Released w/o Limitations [facility]( Blue) [facility]) TELE CONSULT [id number] Notes Entered by: PIPPA BOWDEN 14 Aug 2014 0911 ------- ------- ------- ------- -- No Show for 1200 appt on 15 SANDHYA LLAMAS 08/14 [facility]( Mental Health Clinic) [facility]( Red) OUTPATIENT [id number] PARSATISH DAN 11/10 Released w/o Limitations [facility]( Red) [facility]( Red) OUTPATIENT [id number] lowe back pain,ne ck pain MIGUEL ELIZABETH 11/12 Released w/o Limitations [facility]( Red) [facility](Op hthalmolo gy Clinic) OUTPATIENT [id number] corneal FB, dorys ring, OD JAVIER ROLLINS 12/02 Released w/o Limitations [facility]( Ophthal mology Clinic) [facility](Or thopedic Clinic) OUTPATIENT [id number] LUMBAGO WITH SCIATIC A CLAUDIA HANDY 12/30 Released w/o Limitations [facility]( Orthope dic Clinic) [facility]) OUTPATIENT [id number] Notes Entered by: PATRICIA THOMSON RA 14 Apr 2015 1349 ------- ------- ------- ------- -- Flu Shot [id number] JUAN R SANCHEZ 04/14 Released w/o Limitations [facility]( [facility]( Red) OUTPATIENT [id number] MIGUEL WALLER 05/04 Released w/o Limitations [facility]( Red) [facility]( Blue) OUTPATIENT [id number] Notes Entered by: Raquel HURTADO 05 May 2015 1247 ------- ------- ------- ------- -- VIVIAN BALTAZAR 05/05 Released w/o Limitations [facility]( Blue) [facility]) TELE CONSULT [id number] Notes Entered by: JOSE FRANCISCO DELVALLE 05 May 2015 1529 ------- ------- ------- ------- -- Needs TANYA Gillis 05/05 Other Not Elsewhere Classified [facility]( Orthope dic Clinic) [facility]( Red) OUTPATIENT [id number] Neck Pain MIGUEL ELIZABETH 05/31 Released w/o Limitations [facility]( Red) [facility]( Red) TELE CONSULT [id number] Notes Entered by: ABBE SAUCEDO 18 Jun 2015 1004 ------- ------- ------- ------- -- Request ing a copy of updated MIGUEL MARTINEZ 06/18 [facility]( Red) [facility](Or [facility]) TELE CONSULT [id number] Notes Entered by: ANNA RUSH 09 Aug 2015 0935 ------- ------- ------- ------- -- Appoint ment concern DUKE Duran 08/09 Advice Assessment [facility]( Orthope dic Clinic) [facility](In t Med CL A Medical Home BE) TELE CONSULT [id number] Notes Entered by: NAY LYNN 13 Aug 2015 0832 ------- ------- ------- ------- -- Retro Activat ion of Urgent Care Visit By: CHRISTINA Villalobos 08/13 [facility]( Int Med CL A Medical Home BE) [facility]) OUTPATIENT [id number] HERMAN Mcginnis 11/09 Released w/o Limitations [facility]( Red) [facility](Pa in Managemen t Clinic) OUTPATIENT [id number] M43.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 M48.02 Cervica l Spinal Stenosi s RAFA JULIO 11/16 Released w/o Limitations [facility]( Pain Managem ent Clinic) [facility](Pa in Managemen t Clinic) OUTPATIENT [id number] lumbar spondyl osis,ce rvical spinal stenosi s YONI LOWE 11/23 Released w/o Limitations [facility]( Pain Managem ent Clinic) [facility](Pa in Managemen t Clinic) OUTPATIENT [id number] procedu re TBD YONI LOWE 11/29 Released w/o Limitations [facility]( Pain Managem ent Clinic) [facility]( Red) OUTPATIENT [id number] MIGUEL Vargas 12/02 Released w/o Limitations [facility]( Red) [facility](Pa in Managemen t Clinic) OUTPATIENT [id number] JE LIANG 02/08 Released w/o Limitations [facility]( Pain Managem ent Clinic) [facility](Pa in Managemen t Clinic) OUTPATIENT [id number] walk-in RODRI DYE 02/23 Released w/o Limitations [facility]( Pain Managem ent Clinic) [facility]( Blue) OUTPATIENT [id number] Notes Entered by: BAIRON DURAN 18 Apr 2016 1228 ------- ------- ------- ------- -- VIVIAN BALTAZAR 04/18 Released with Work/Duty Limitations [facility]( Blue) [facility]( Red) OUTPATIENT [id number] MIGUEL WALLER 04/20 Released w/o Limitations [facility]( Red) [facility](Pa [facility] t Clinic) [facility]PAT[facility] [id number] [facility] YONI LOWE 10/12 Released w/o Limitations [facility]( Pain Managem ent Clinic) [facility](Pa in Managemen t Clinic) OUTPATIENT [id number] JE ANTON 10/13 Released w/o Limitations [facility]( Pain Managem ent Clinic) [facility](Pa in Managemen t Clinic) OUTPATIENT [id number] JE ANTON 10/16 Released w/o Limitations [facility]( Pain Managem ent Clinic) [facility]( Red) OUTPATIENT [id number] Stomach Issues MIGUEL ELIZABETH 10/26 Released w/o Limitations [facility]( Red) [facility]( Red) TELE CONSULT [id number] Notes Entered by: UTE ELIZABETH 20 Nov 2016 1223 ------- ------- ------- ------- -- F/U labs MIGUEL ELIZABETH 11/20 [facility]( Red) [facility]) OUTPATIENT [id number] Notes Entered by: BRANDO GARCIA 28 Nov 2016 1638 ------- ------- ------- ------- -- THIAGO KURTZ 11/28 Released w/o Limitations [facility]( [facility]) OUTPATIENT [id number] RENAAPRIL MORSE MICAH 01/02 Released w/o Limitations [facility]( [facility]) [facility]) OUTPATIENT [id number] epigast fausto pain STEFFEN SHETTY 03/09 Released w/o Limitations [facility]( [facility]) [facility]) TELE CONSULT [id number] Notes Entered by: Livia ROBISON 21 Mar 2017 1445 ------- ------- ------- ------- -- [facility] ondence with patient STEFFEN SHETTY 03/21 [facility]( [facility]) OUTPATIENT [id number] Notes Entered by: PORTIA CRESPO 28 Mar 2017 0815 ------- ------- ------- ------- -- THIAGO Kurtz 03/28 Released w/o Limitations [facility]( [facility]) OUTPATIENT [id number] Notes Entered by: Maik GOLD 28 Mar 2017 0838 ------- ------- ------- ------- -- mmr THIAGO CODY 03/28 Released w/o Limitations [facility]( Immuniz ations- Core Facilit y) [facility]( Red) OUTPATIENT [id number] sleep issues MIGUEL ELIZABETH 03/28 Released w/o Limitations [facility]( Red) [facility]( Red) OUTPATIENT [id number] L ankle probs MIGUEL ELIZABETH 04/11 Released w/o Limitations [facility]( Red) [facility] OUTPATIENT [id number] f/u epigust fausto pain STEFFEN SHETTY 04/19 Released w/o Limitations [facility]( [facility]) [facility]( Red) OUTPATIENT [id number] dizzine ss/naus KARTIK Rhodes 06/05 Released w/o Limitations [facility]( Red) [facility](He aring Conserv-B 15) OUTPATIENT [id number] Notes Entered by: SALAS PORTILLO 06 Jun 2017 1326 ------- ------- ------- ------- -- term SALAS PORTILLO 06/06 Released w/o Limitations [facility]( Hearing Conserv -B15) [facility](Op tometry [facility]) OUTPATIENT [id number] routine eye exam YARELY CASTILLO 06/12 Released w/o Limitations [facility]( Optomet ry [facility] 15) [facility](Me dical Readiness Clinic) OUTPATIENT [id number] RETIREM ENT GRIS SAM 06/12 Released w/o Limitations [facility]( Medical Readine ss Clinic) [facility](Ga stroenter ology Clinic) OUTPATIENT [id number] follow up- abdomin al pain DIOGENES STEFFEN MACHELLE 06/12 Released w/o Limitations [facility]( [facility]) [facility](Ca rdiology Clinic) OUTPATIENT [id number] chest pain RYAN DUNCAN 06/12 Released w/o Limitations [facility]( Cardiol ogy Clinic) [facility](Ia rdiology Clinic) OUTPATIENT [id number] follow up about AI RYAN DUNCAN Sandrine 06/13 Released w/o Limitations [facility]( Cardiol ogy Clinic) [facility](Ca se Managemen t [place]) OUTPATIENT [id number] Notes Entered by: RUDDY BISHOP 15 Jun 2017 1247 ------- ------- ------- ------- -- care RODRI Antunez 06/15 Released w/o Limitations [facility]( Case Managem ent [place]) [facility]( Red) OUTPATIENT [id number] medical hold- per MIGUEL Batista 06/18 Released w/o Limitations [facility]( Red) [facility]( Red) TELE CONSULT [id number] Notes Entered by: Marilee WILSON 22 Jun 2017 1229 ------- ------- ------- ------- -- JACQUELINE VIVIAN Yang 06/22 [facility]( Red) [facility](Ia rdiology Clinic) TELE CONSULT [id number] Notes Entered by: RUDDY BISHOP 25 Jun 2017 1138 ------- ------- ------- ------- -- Follow up on testing RYAN DUNCAN Sandrine 06/25 [facility]( Cardiol ogy Clinic) [facility]( eep Lab Clinic) OUTPATIENT [id number] Obstruc tive sleep apnea (adult) (pediat fausto)... PSG, last one 5 years ago OLIVIER CODY 06/27 Released w/o Limitations [facility]( Sleep Lab Clinic) [facility](Sl eep Lab Clinic) TELE CONSULT [id number] Notes Entered by: Clayton FELIX 05 Jul 2017 0631 ------- ------- ------- ------- -- F/u sleep study OLIVIER CODY 07/05 [facility]( Sleep Lab Clinic) [facility](Ia se Managemen t [place]) OUTPATIENT [id number] Notes Entered by: RUDDY BISHOP 06 Jul 2017 0834 ------- ------- ------- ------- -- care coordin RODRI Morales 07/06 Released w/o Limitations [facility]( Case Managem ent [place]) [facility](Ca rdiology Clinic) TELE CONSULT [id number] Notes Entered by: Raquel SHARMA 16 Jul 2017 1400 ------- ------- ------- ------- -- Letter RYAN DUNCAN 07/16 [facility]( Cardiol ogy Clinic) [facility](Pa in Managemen t Clinic) OUTPATIENT [id number] LBP (lennar d pt) CORWIN MARQUEZ 07/20 Released w/o Limitations [facility]( Pain Managem ent Clinic) [facility](FM Red) TELE CONSULT [id number] Notes Entered by: ABBE SAUCEDO 25 Jul 2017 1157 ------- ------- ------- ------- -- Request ing a phone call GOMES VIVIAN BERTO 07/25 [facility]( FM Red) [facility](Pa in Managemen t Clinic) OUTPATIENT [id number] RODRI Suarez 07/27 Released w/o Limitations [facility]( Pain Managem ent Clinic) [facility](Pa in Managemen t Clinic) TELE CONSULT [id number] Notes Entered by: PRINCE KATZ 02 Aug 2017 0814 ------- ------- ------- ------- -- Alpha RODRI Watts 08/02 Released w/o Limitations [facility]( Pain Managem ent Clinic) [facility](Ca rdiology Clinic) TELE CONSULT [id number] Notes Entered by: RUDDY BISHOP 06 Aug 2017 0857 ------- ------- ------- ------- -- OP RYAN Miranda 08/06 [facility]( Cardiol ogy Clinic) [facility](Ca rdiology Clinic) TELE CONSULT [id number] Notes Entered by: Raquel SHARMA 21 Aug 2017 1411 ------- ------- ------- ------- -- Referra whitaker/ASHLEY Cole 08/21 [facility]( Cardiol ogy Clinic) [facility](Me dical Readiness Clinic) OUTPATIENT [id number] RETIREM ENT BOLA DURON 08/29 Released w/o [facility]( Medical Readine ss Clinic) [facility](Ca rdiology Clinic) TELE CONSULT [id number] Notes Entered by: RUDDY BISHOP 10 Sep 2017 1626 ------- ------- ------- ------- -- SUSANNAH mackey vs. Con leave and light duty chit ANIRUDH DUNCANPAULINE Whitaker 09/10 [facility]( Cardiol ogy Clinic) [facility](Ca rdiology Clinic) TELE CONSULT [id number] Notes Entered by: MANUEL DUNCAN 12 Sep 2017 1434 ------- ------- ------- ------- -- Cardiac rehab RYAN DUNCAN 09/12 [facility]( Cardiol ogy Clinic) [facility](Ia rdiology Clinic) OUTPATIENT [id number] f/u from Chang DUNCANANIRUDHRYAN L 09/21 Released w/o Limitations [facility]( Cardiol ogy Clinic) [facility](Ia rdiology Clinic) OUTPATIENT [id number] chest pain RYAN DUNCAN Sandrine 10/19 Released w/o Limitations [facility]( Cardiol ogy Clinic) [facility] DIRECT TO [facility] MTF FROM OTHER THAN ER OR APU [id number] EILEEN AVILES VIVIAN 10/23 RETURNED TO DUTY [facility](Ia rdiology Clinic) OUTPATIENT [id number] Pleurit ic chest pain ASHLEY GRIFFITH 10/24 Released w/o Limitations [facility]( Cardiol ogy Clinic) [facility](Ca se Managemen t [place]) OUTPATIENT [id number] Notes Entered by: CINDY BRANDT 31 Oct 2017 1227 ------- ------- ------- ------- -- DISCHCINDY RUBIO 10/31 Released w/o Limitations [facility]( Case Managem ent [place]) [facility](Ca rdiology Clinic) OUTPATIENT [id number] f/u RYAN DUNCAN 11/15 Released w/o Limitations [facility]( Cardiol ogy Clinic) [facility]) OUTPATIENT [id number] garrick CHOWDHURYRAUL 11/28 Released w/o Limitations [facility]( Red) [facility]) OUTPATIENT [id number] NITISH CHOWDHURY RAULMARTHA PETTY 12/05 Released w/o Limitations [facility]( [facility]) [facility] Outpatient Encounter [id number] 05/16 [place] [facility] Outpatient Encounter [id number] 06/11 [place] [facility] TTE W/DOPPLER COMPLETE [id number] Diagnos is: ICD-10- CM Z95.4 Presenc e of other heart-v alve replace AVELINA Hess W 06/11 [place] [facility] Outpatient Encounter [id number] 07/30 [place] Outpatient Encounter [id number] EVETTE PATRICK 08/10 [place] [facility] Outpatient Encounter [id number] 08/13 [place] [facility] Outpatient Encounter [id number] 08/14 [place] [facility] Outpatient Encounter [id number] 08/14 [place] [facility] Outpatient Encounter [id number] 08/20 [place] Outpatient Encounter [id number] LUIS PECK CLARK K 09/09 [place] [facility] Outpatient Encounter [id number] 09/23 [place] [facility] OFFICE O/P EST MOD 30 MIN [id number] Diagnos is: ICD-10- CM G47.30 Sleep apnea, unspeci fied LUIS PECK CY K 09/23 [place] [facility] Outpatient Encounter [id number] 09/23 [place] Outpatient Encounter [id number] ELIA JOHNS SE L 10/07 [place] [facility] Outpatient Encounter [id number] 10/07 [place] Outpatient Encounter [id number] 10/07 [place] [facility] INTRM OPH EXAM NEW PATIENT [id number] Diagnos is: ICD-10- CM H52.4 Presbyo ELIA Bernstein L 10/21 [place] [facility] Outpatient Encounter [id number] 10/30 [place] [facility] Outpatient Encounter [id number] 11/28 [place] [facility] DENTAL PANORAMIC IMAGE [id number] Diagnos is: ICD-10- CM K03.81 Cracked tooth Grady FRIAS ZOEY Jones 12/03 [place] [facility] Outpatient Encounter [id number] 12/03 [place] [facility] EXTRACTION ERUPTED TOOTH/EXR [id number] Diagnos is: ICD-10- CM K02.53 Dental caries on pit and fissure surface penetra t into pulp GALECIO VERA,RAKEL L 12/04 [place] [facility] [facility] Outpatient Encounter [id number] 12/08 [place] [facility] Outpatient Encounter [id number] 01/03 [place] Outpatient Encounter [id number] 01/15 [place] Outpatient Encounter [id number] 02/05 [place] HC PRO PHONE CALL 5-10 MIN [id number] Diagnos is: ICD-10- CM 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.9 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, 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 fied [facility] L 02/06 [place] [facility] Outpatient Encounter [id number] [facility] SE,ELIA L 02/07 [place] [facility] DENTAL BITEWING FOUR IMAGES [id number] Diagnos is: ICD-10- CM K02.53 Dental caries on pit and fissure surface penetra t into pulp Grady FRIAS ZOEY Jones 02/10 [place] [facility] Outpatient Encounter [id number] 02/12 [place] [facility] Outpatient Encounter [id number] 02/19 [place] [facility] Outpatient Encounter [id number] 02/20 [place] Outpatient Encounter [id number] 03/10 [place] Outpatient Encounter [id number] 03/31 [place] Outpatient Encounter [id number] 04/17 [place] [facility] Outpatient Encounter [id number] 05/12 [place] TTE W/DOPPLER COMPLETE [id number] Diagnos is: ICD-10- CM Q23.81 Bicuspi d aortic valve [facility] [place] 06/11 [place] Outpatient Encounter [id number] 06/11 [place] [facility] Outpatient Encounter [id number] 06/12 [place] HC PRO PHONE CALL 5-10 MIN [id number] Diagnos is: ICD-10- CM Z71.9 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, unspeci fied GARLINGPRAFUL SE,ELIA L 06/12 [place] [facility] Outpatient Encounter [id number] 08/27 [place] Outpatient Encounter [id number] 09/12 [place] Outpatient Encounter [id number] 09/17 [place] Outpatient Encounter [id number] 10/08 [place] Outpatient Encounter [id number] 10/13 [place] Outpatient Encounter [id number] 10/20 [place] [facility] PH1 ASSMT&MGMT NQHP 5-10 [id number] Diagnos is: ICD-10- CM 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 Procedure Procedure Type Code Date Perfomer Comments Sourc e SERVICE(S) PROVIDED BETWEEN 10:00 PM AND 8:00 AM AT 24-HOUR FACILITY, IN ADDITION TO BASIC SERVICE 2010 DoD PURE TONE AUDIOMETRY (THRESHOLD); AIR ONLY 2001 DoD DETERMINATION OF REFRACTIVE STATE 2001 DoD FITTING OF SPECTACLES, EXCEPT FOR APHAKIA; MONOFOCAL 1999 DoD SHAVING OF EPIDERMAL OR DERMAL LESION, SINGLE LESION, TRUNK, ARMS OR LEGS; LESION DIAMETER 1.1 TO 2.0 CM 2004 DoD EDUCATIONAL SUPPLIES, SUCH BOOKS, TAPES, AND PAMPHLETS, FOR THE PATIENT'S EDUCATION AT COST TO PHYSICIAN OR OTHER QUALIFIED HEALTH MAGAZINE HAND 2004 DoD VIS FUNCT SCREEN,AUTOMAT/SEMI-A UTOMAT BILAT QUANT DETERM VISUAL ACUITY,OCULAR ALIGN,COLOR VISION,PSEUDOISOCHROM AT PLATES,& FIELD VIS (MAY INC ALL/SOME SCRN DETERM FOR CONTRAST SENSITIV,VIS UND GLARE) 2004 [facility] DETERMINATION OF REFRACTIVE STATE 2002 [facility] EDUCATIONAL SUPPLIES, SUCH BOOKS, TAPES, AND PAMPHLETS, FOR THE PATIENT'S EDUCATION AT COST TO PHYSICIAN OR OTHER QUALIFIED HEALTH MAGAZINE HAND 2002 DoD AUDIOMETRIC TESTING OF GROUPS 2009 DoD TYPHOID VACCINE, CAPSULAR POLYSACCHARIDE (VICPS), FOR INTRAMUSCULAR USE 2009 [facility] AUDIOMETRIC TESTING OF GROUPS 2008 [facility] AUDIOMETRIC TESTING OF GROUPS 2007 DoD TYPHOID VACCINE, CAPSULAR POLYSACCHARIDE (VICPS), FOR INTRAMUSCULAR USE 2007 [facility] COLOR VISION EXAMINATION, EXTENDED, EG, ANOMALOSCOPE OR EQUIVALENT 2007 [facility] PRESCRIPTION OF OPTICAL AND PHYSICAL CHARACTERISTICS OF AND FITTING OF CONTACT LENS, WITH MEDICAL SUPERVISION OF ADAPTATION; CORNEAL LENS, BOTH EYES, EXCEPT FOR APHAKIA 2007 DoD PRESCRIPTION OF OPTICAL AND PHYSICAL CHARACTERISTICS OF AND FITTING OF CONTACT LENS, WITH MEDICAL SUPERVISION OF ADAPTATION; CORNEAL LENS, BOTH EYES, EXCEPT FOR APHAKIA 2006 [facility] DETERMINATION OF REFRACTIVE STATE 2005 DoD SKIN TEST; TUBERCULOSIS, INTRADERMAL 2005 DoD FITTING OF SPECTACLES, EXCEPT FOR APHAKIA; MONOFOCAL 2005 DoD EDUCATIONAL SUPPLIES, SUCH BOOKS, TAPES, AND PAMPHLETS, FOR THE PATIENT'S EDUCATION AT COST TO PHYSICIAN OR OTHER QUALIFIED HEALTH MAGAZINE HAND 2005 DoD SKIN TEST; TUBERCULOSIS, INTRADERMAL 2005 DoD DESTRUCTION (EG, LASER SURGERY, ELECTROSURGERY, CRYOSURGERY, CHEMOSURGERY, SURGICAL CURETTEMENT), PREMALIGNANT LESIONS (EG, ACTINIC KERATOSES), 15 OR MORE LESIONS 2005 DoD INJECTION OF ANTIBIOTIC 2005 DoD AVULSION OF NAIL PLATE, PARTIAL OR COMPLETE, SIMPLE; SINGLE 2005 DoD EXCISION OF NAIL AND NAIL MATRIX, PARTIAL OR COMPLETE (EG, INGROWN OR DEFORMED NAIL), FOR PERMANENT REMOVAL 2005 [facility] APPLICATION OF A MODALITY TO 1 OR MORE AREAS; HOT OR COLD PACKS 2006 DoD APPLICATION OF A MODALITY TO 1 OR MORE AREAS; HOT OR COLD PACKS 2006 DoD APPLICATION OF A MODALITY TO 1 OR MORE AREAS; HOT OR COLD PACKS 2006 [facility] EDUCATIONAL SUPPLIES, SUCH BOOKS, TAPES, AND PAMPHLETS, FOR THE PATIENT'S EDUCATION AT COST TO PHYSICIAN OR OTHER QUALIFIED HEALTH MAGAZINE HAND 2006 DoD APPLICATION OF A MODALITY TO 1 OR MORE AREAS; HOT OR COLD PACKS 2006 DoD APPLICATION OF A MODALITY TO 1 OR MORE AREAS; HOT OR COLD PACKS 2006 DoD APPLICATION OF A MODALITY TO 1 OR MORE AREAS; HOT OR COLD PACKS 2006 DoD APPLICATION OF A MODALITY TO 1 OR MORE AREAS; HOT OR COLD PACKS 2006 DoD PHYSICAL THERAPY EVALUATION 2006 [facility] OSTEOPATHIC MANIPULATIVE TREATMENT (OMT); 3-4 BODY REGIONS INVOLVED 2006 [facility] TELE ASSESS & MGT SRV PROV QUAL NONPHYS HLTH CARE PRO TO EST PAT,PARENT,GUARD NOT ORIG REL ASSESS & MGT SRV PROV W/IN PREV 7 DAYS NOR LEAD ASSESS & MGT SRV/PX W/IN NXT 24 HR/SOON APT;5-10 MIN MED DIS 2015 [facility] PSYCHOTHERAPY, 30 MINUTES WITH PATIENT WHEN PERFORMED WITH AN EVALUATION AND MANAGEMENT SERVICE (LIST SEPARATELY IN ADDITION TO THE CODE FOR PRIMARY PROCEDURE) 2013 [facility] MEDICAL NUTRITION THERAPY; GROUP (2 OR MORE INDIVIDUAL(S)), EACH 30 MINUTES 2013 [facility] PSYCHIATRIC DIAGNOSTIC EVALUATION 2013 [facility] PSYCHIATRIC DIAGNOSTIC EVALUATION WITH MEDICAL SERVICES 2013 [facility] PSYCHIATRIC DIAGNOSTIC EVALUATION WITH MEDICAL SERVICES 2012 [facility] INFLUENZA VIRUS VACCINE, TRIVALENT (IIV3), SPLIT VIRUS, PRESERVATIVE FREE, 0.5 ML DOSAGE, FOR INTRAMUSCULAR USE 2012 [facility] SCREENING TEST OF VISUAL ACUITY, QUANTITATIVE, BILATERAL 2012 [facility] DETERMINATION OF REFRACTIVE STATE 2012 [facility] OPHTHALMOLOGICAL SERVICES: MEDICAL EXAMINATION AND EVALUATION, WITH INITIATION OR CONTINUATION OF DIAGNOSTIC AND TREATMENT PROGRAM; COMPREHENSIVE, ESTABLISHED PATIENT, 1 OR MORE VISITS 2012 [facility] PSYCHOTHERAPY, 45 MINUTES WITH PATIENT WHEN PERFORMED WITH AN EVALUATION AND MANAGEMENT SERVICE (LIST SEPARATELY IN ADDITION TO THE CODE FOR PRIMARY PROCEDURE) 2012 [facility] PSYCHIATRIC DIAGNOSTIC INTERVIEW EXAMINATION 2012 [facility] SCREENING TEST OF VISUAL ACUITY, QUANTITATIVE, BILATERAL 2011 [facility] IMMUNIZATION ADMINISTRATION (INCLUDES PERCUTANEOUS, INTRADERMAL, SUBCUTANEOUS, OR INTRAMUSCULAR INJECTIONS); 1 VACCINE (SINGLE OR COMBINATION VACCINE/TOXOID) 2011 [facility] ECHOCARDIOGRAPHY,SHETH STHORACIC,REAL-TIME W IMAGE DOCUMENTATION (2D),INCLUDES M-MODE RECORDING,WHEN PERFORMED,COMPLETE,WI TH SPECTRAL DOPPLER ECHOCARDIOGRAPHY,AND W COLOR FLOW DOPPLER ECHOCARDIOGRAPHY 2011 [facility] UNLISTED SPECIAL SERVICE, PROCEDURE OR REPORT 2011 [facility] ELECTROCARDIOGRAM, ROUTINE ECG WITH AT LEAST 12 LEADS; WITH INTERPRETATION AND REPORT 2011 [facility] INFLUENZA VIRUS VACCINE, TRIVALENT (IIV3), SPLIT VIRUS, 0.5 ML DOSAGE, FOR INTRAMUSCULAR USE 2010 [facility] COMPUTERIZED CORNEAL TOPOGRAPHY, UNILATERAL OR BILATERAL, WITH INTERPRETATION AND REPORT 2010 [facility] INDIVIDUAL PSYCHOTHERAPY, INSIGHT ORIENTED, BEHAVIOR MODIFYING AND/OR SUPPORTIVE, IN AN OFFICE OR OUTPATIENT FACILITY, APPROXIMATELY 20 TO 30 MINUTES [id number] WITH THE PATIENT 2010 [facility] INDIVIDUAL PSYCHOTHERAPY, INSIGHT ORIENTED, BEHAVIOR MODIFYING AND/OR SUPPORTIVE, IN AN OFFICE OR OUTPATIENT FACILITY, APPROXIMATELY 20 TO 30 MINUTES [id number]-ME-BSOR WITH THE PATIENT 2010 [facility] INFUSION, NORMAL SALINE SOLUTION, STERILE (500 ML = 1 UNIT) 2010 [facility] DETERMINATION OF REFRACTIVE STATE 2010 [facility] INJECTION, KETOROLAC TROMETHAMINE, PER 15 MG 2010 [facility] ELECTROCARDIOGRAM, ROUTINE ECG WITH AT LEAST 12 LEADS; WITH INTERPRETATION AND REPORT 2018 DoD PSYCHOTHERAPY, 30 MINUTES WITH PATIENT WHEN PERFORMED WITH AN EVALUATION AND MANAGEMENT SERVICE (LIST SEPARATELY IN ADDITION TO THE CODE FOR PRIMARY PROCEDURE) 2017 DoD PSYCHOTHERAPY, 30 MINUTES WITH PATIENT WHEN PERFORMED WITH AN EVALUATION AND MANAGEMENT SERVICE (LIST SEPARATELY IN ADDITION TO THE CODE FOR PRIMARY PROCEDURE) 2017 DoD PSYCHOTHERAPY, 30 MINUTES WITH PATIENT WHEN PERFORMED WITH AN EVALUATION AND MANAGEMENT SERVICE (LIST SEPARATELY IN ADDITION TO THE CODE FOR PRIMARY PROCEDURE) 2017 DoD PSYCHOTHERAPY, 30 MINUTES WITH PATIENT WHEN PERFORMED WITH AN EVALUATION AND MANAGEMENT SERVICE (LIST SEPARATELY IN ADDITION TO THE CODE FOR PRIMARY PROCEDURE) 2017 [facility] CASE MANAGEMENT, EACH 15 MINUTES 2017 [facility] ECHOCARDIOGRAPHY,SHETH STHORACIC,REAL-TIME W IMAGE DOCUMENTATION (2D),INCLUDES M-MODE RECORDING,WHEN PERFORMED,COMPLETE,WI TH SPECTRAL DOPPLER ECHOCARDIOGRAPHY,AND W COLOR FLOW DOPPLER ECHOCARDIOGRAPHY 2017 [facility] INFUSION, NORMAL SALINE SOLUTION , 1000 CC 2017 [facility] PHARMACOLOGIC MANAGEMENT, INCLUDING PRESCRIPTION AND REVIEW OF MEDICATION, WHEN PERFORMED WITH PSYCHOTHERAPY SERVICES (LIST SEPARATELY IN ADDITION TO THE CODE FOR PRIMARY PROCEDURE) 2017 [facility] ECHOCARDIOGRAPHY, TRANSTHORACIC, REAL-TIME WITH IMAGE DOCUMENTATION (2D), INCLUDES M-MODE RECORDING, WHEN PERFORMED, FOLLOW-UP OR LIMITED STUDY 2017 [facility] ELECTROCARDIOGRAM, ROUTINE ECG WITH AT LEAST 12 LEADS; WITH INTERPRETATION AND REPORT 2017 [facility] TELE ASSESS & MGT SRV PROV QUAL NONPHYS TH CARE PRO TO EST PAT,PARENT,GUARD NOT ORIG REL ASSESS & MGT SRV PROV W/IN PREV 7 DAYS NOR LEAD ASSESS & MGT SRV/PX W/IN NXT 24 HR/SOON APT;5-10 MIN MED DIS 2017 [facility] APPLICATION OF A MODALITY TO 1 OR MORE AREAS; ELECTRICAL STIMULATION (MANUAL), EACH 15 MINUTES 2017 [facility] CASE MANAGEMENT, EACH 15 MINUTES 2016 [facility] SLEEP STUDY, UNATTENDED, SIMULTANEOUS RECORDING OF, HEART RATE, OXYGEN SATURATION, RESPIRATORY AIRFLOW, AND RESPIRATORY EFFORT (EG, THORACOABDOMINAL MOVEMENT) 2016 DoD CASE MANAGEMENT, EACH 15 MINUTES 2016 [facility] ECHOCARDIOGRAPHY,SHETH STHORACIC,REAL-TIME W IMAGE DOCUMENTATION (2D),INCLUDES M-MODE RECORDING,WHEN PERFORMED,COMPLETE,WI TH SPECTRAL DOPPLER ECHOCARDIOGRAPHY,AND W COLOR FLOW DOPPLER ECHOCARDIOGRAPHY 2016 [facility] FITTING OF SPECTACLES, EXCEPT FOR APHAKIA; MONOFOCAL 2016 [facility] PATIENT EDUCATION, NOT OTHERWISE CLASSIFIED, NON-PHYSICIAN PROVIDER, GROUP, PER SESSION 2016 DoD PSYCHOTHERAPY, 30 MINUTES WITH PATIENT WHEN PERFORMED WITH AN EVALUATION AND MANAGEMENT SERVICE (LIST SEPARATELY IN ADDITION TO THE CODE FOR PRIMARY PROCEDURE) 2016 DoD PSYCHOTHERAPY, 30 MINUTES WITH PATIENT WHEN PERFORMED WITH AN EVALUATION AND MANAGEMENT SERVICE (LIST SEPARATELY IN ADDITION TO THE CODE FOR PRIMARY PROCEDURE) 2016 [facility] IMMUNIZATION ADMINISTRATION (INCLUDES PERCUTANEOUS, INTRADERMAL, SUBCUTANEOUS, OR INTRAMUSCULAR INJECTIONS); 1 VACCINE (SINGLE OR COMBINATION VACCINE/TOXOID) 2016 [facility] TELEHEALTH ORIGINATING SITE FACILITY FEE 2016 [facility] TELEHEALTH ORIGINATING SITE FACILITY FEE 2016 DoD TELEHEALTH ORIGINATING SITE FACILITY FEE 2016 DoD TELEHEALTH ORIGINATING SITE FACILITY FEE 2016 DoD TELEHEALTH ORIGINATING SITE FACILITY FEE 2016 DoD PSYCHOTHERAPY, 30 MINUTES WITH PATIENT WHEN PERFORMED WITH AN EVALUATION AND MANAGEMENT SERVICE (LIST SEPARATELY IN ADDITION TO THE CODE FOR PRIMARY PROCEDURE) 2016 DoD IMMUNIZATION ADMINISTRATION (INCLUDES PERCUTANEOUS, INTRADERMAL, SUBCUTANEOUS, OR INTRAMUSCULAR INJECTIONS); 1 VACCINE (SINGLE OR COMBINATION VACCINE/TOXOID) 2016 DoD INJECTION, METHYLPREDNISOLONE ACETATE, 80 MG 2016 DoD PSYCHOTHERAPY, 30 MINUTES WITH PATIENT WHEN PERFORMED WITH AN EVALUATION AND MANAGEMENT SERVICE (LIST SEPARATELY IN ADDITION TO THE CODE FOR PRIMARY PROCEDURE) 2016 DoD INJECTION, PROMETHAZINE HCL, UP TO 50 MG 2016 DoD PSYCHOTHERAPY, 30 MINUTES WITH PATIENT WHEN PERFORMED WITH AN EVALUATION AND MANAGEMENT SERVICE (LIST SEPARATELY IN ADDITION TO THE CODE FOR PRIMARY PROCEDURE) 2016 DoD PSYCHOTHERAPY, 30 MINUTES WITH PATIENT WHEN PERFORMED WITH AN EVALUATION AND MANAGEMENT SERVICE (LIST SEPARATELY IN ADDITION TO THE CODE FOR PRIMARY PROCEDURE) 2015 [facility] MOST RECENT DIASTOLIC BLOOD PRESSURE < 90 MMHG 2015 [facility] ELECTROCARDIOGRAM, ROUTINE ECG WITH AT LEAST 12 LEADS; WITH INTERPRETATION AND REPORT 2015 [facility] EDUCATION &TRAINING, PATIENT SELF-MGT QUALIFIED, NONPHYSICIAN HEALTH MAGAZINE HAND USING STDIZED CURRICULUM, [id number] W THE PATIENT (COULD INCL CAREGIVER/FAMILY) EA 30 MIN; INDIVIDUAL PATIENT 2015 DoD PSYCHOTHERAPY, 30 MINUTES WITH PATIENT WHEN PERFORMED WITH AN EVALUATION AND MANAGEMENT SERVICE (LIST SEPARATELY IN ADDITION TO THE CODE FOR PRIMARY PROCEDURE) 2015 DoD INJECT(S),OF DIAG/THER SUBS(S) (INCLD ANES,ANTISPASMODIC,OP IOID,STEROID,OTH MAGO),NOT INCLD NEUROLYTIC SUBS,INCLD NEEDLE/CATH PLCMNT,INCLDS CONT FOR LOCALIZATION WHEN PERFORM,EPIDUR/SUBARA CH;CERV/THOR 2015 DoD PSYCHOTHERAPY, 30 MINUTES WITH PATIENT WHEN PERFORMED WITH AN EVALUATION AND MANAGEMENT SERVICE (LIST SEPARATELY IN ADDITION TO THE CODE FOR PRIMARY PROCEDURE) 2015 DoD INJECT(S),OF DIAG/THER SUBS(S) (INCLD ANES,ANTISPASMODIC,OP IOID,STEROID,OTH MAGO),NOT INCLD NEUROLYTIC SUBS,INCLD NEEDLE/CATH PLCMNT,INCLDS CONT FOR LOCALIZATION WHEN PERFORM,EPIDUR/SUBARA CH;CERV/THOR 2015 DoD PSYCHOTHERAPY, 30 MINUTES WITH PATIENT WHEN PERFORMED WITH AN EVALUATION AND MANAGEMENT SERVICE (LIST SEPARATELY IN ADDITION TO THE CODE FOR PRIMARY PROCEDURE) 2015 DoD PSYCHOTHERAPY, 30 MINUTES WITH PATIENT WHEN PERFORMED WITH AN EVALUATION AND MANAGEMENT SERVICE (LIST SEPARATELY IN ADDITION TO THE CODE FOR PRIMARY PROCEDURE) 2015 [facility] MOST RECENT DIASTOLIC BLOOD PRESSURE < 90 MMHG 2014 DoD PSYCHOTHERAPY, 30 MINUTES WITH PATIENT WHEN PERFORMED WITH AN EVALUATION AND MANAGEMENT SERVICE (LIST SEPARATELY IN ADDITION TO THE CODE FOR PRIMARY PROCEDURE) 2014 DoD INFLUENZA VIRUS VACCINE, TRIVALENT (IIV3), SPLIT VIRUS, 0.5 ML DOSAGE, FOR INTRAMUSCULAR USE 2014 DoD PSYCHOTHERAPY, 30 MINUTES WITH PATIENT WHEN PERFORMED WITH AN EVALUATION AND MANAGEMENT SERVICE (LIST SEPARATELY IN ADDITION TO THE CODE FOR PRIMARY PROCEDURE) 2014 DoD PSYCHOTHERAPY, 30 MINUTES WITH PATIENT WHEN PERFORMED WITH AN EVALUATION AND MANAGEMENT SERVICE (LIST SEPARATELY IN ADDITION TO THE CODE FOR PRIMARY PROCEDURE) 2014 DoD PSYCHOTHERAPY, 45 MINUTES WITH PATIENT WHEN PERFORMED WITH AN EVALUATION AND MANAGEMENT SERVICE (LIST SEPARATELY IN ADDITION TO THE CODE FOR PRIMARY PROCEDURE) 2014 [facility] PSYCHOLOG TESTING (ASSESS EMOTION,INTELLECT ABILITIES,PERSONALITY & PSYCHOPATH,EG,MMPI,RO RSCHACH,WAIS)/HR PSYCHOLOGIST/PHYS TIME,BOTH [id number] ADMIN TEST TO PAT & INTERP TEST RESULT & PREP RPT 2014 [facility] FITTING OF CONTACT LENS FOR TREATMENT OF OCULAR SURFACE DISEASE 2014 [facility] REMOVAL OF FOREIGN BODY, EXTERNAL EYE; CORNEAL, WITH SLIT LAMP 2014 DoD PSYCHOTHERAPY, 45 MINUTES WITH PATIENT WHEN PERFORMED WITH AN EVALUATION AND MANAGEMENT SERVICE (LIST SEPARATELY IN ADDITION TO THE CODE FOR PRIMARY PROCEDURE) 2014 DoD PSYCHOTHERAPY, 45 MINUTES WITH PATIENT 2014 DoD PSYCHOTHERAPY, 45 MINUTES WITH PATIENT WHEN PERFORMED WITH AN EVALUATION AND MANAGEMENT SERVICE (LIST SEPARATELY IN ADDITION TO THE CODE FOR PRIMARY PROCEDURE) 2014 DoD PSYCHOTHERAPY, 45 MINUTES WITH PATIENT 2014 DoD PSYCHOTHERAPY, 45 MINUTES WITH PATIENT 2013 DoD SPLINT, PREFABRICATED, DIGIT (SPECIFY DIGIT BY USE OF MODIFIER) 2013 [facility] PSYCHIATRIC DIAGNOSTIC EVALUATION WITH MEDICAL SERVICES 2013 DoD PSYCHOTHERAPY, 45 MINUTES WITH PATIENT 2013 DoD PSYCHOTHERAPY, 45 MINUTES WITH PATIENT 2013 DoD MOST RECENT DIASTOLIC BLOOD PRESSURE < 90 MMHG 2013 DoD PSYCHOTHERAPY, 45 MINUTES WITH PATIENT 2013 [facility] IMMUNIZATION ADMINISTRATION (INCLUDES PERCUTANEOUS, INTRADERMAL, SUBCUTANEOUS, OR INTRAMUSCULAR INJECTIONS); 1 VACCINE (SINGLE OR COMBINATION VACCINE/TOXOID) 2013 [facility] PSYCHIATRIC DIAGNOSTIC EVALUATION 2013 DoD PSYCHOTHERAPY, 30 MINUTES WITH PATIENT 2013 [facility] INJECTION, DIAZEPAM, UP TO 5 MG 2013 DoD Psychiat Therapy Indiv Appr 20-30 Min W/ Med Eval [facility] Psychiat Therapy Indiv Appr 20-30 Min W/ Med Eval [facility] [id number] 2017 BENITA GALINDO [facility] Psychiat Therapy Indiv Appr 20-30 Min W/ Med Eval [facility] Psychiat Therapy Indiv Appr 20-30 Min W/ Med Eval [facility] [id number] 2017 BENITA GALINDO Psychiat Therapy Indiv Appr 20-30 Min W/ Med Eval [facility] Psychiat Therapy Indiv Appr 20-30 Min W/ Med Eval [facility] [id number] 2017 BENITA GALINDO [facility] Psychiat Therapy Indiv Appr 20-30 Min W/ Med Eval [facility] Psychiat Therapy Indiv Appr 20-30 Min W/ Med Eval [facility] [id number] 2017 BENITA GALINDO [facility] Case Management, each 15 minutes 2017 CINDY BRANDT [facility] Coordinated care fee, risk adjusted maintenance 2017 CINDY BRANDT [facility] Psychoactive Medication Management Psychoactive Medication Management [id number] 2017 ASHLEE ORTEGA [facility] Non-Physician Phone Call To Patient/Provider Brief (5-10min) Non-Physician Phone Call To Patient/Provider Brief (5-10min) [id number] 2017 RODRI DYE Removed patient from waiting list due to pending surgery. [facility] Modalities Electrical Stimulation Attended Each 15 Minutes Modalities Electrical Stimulation Attended Each 15 Minutes [id number] 2017 LEANN WALL Alpha stim zee 100 x 60 mins DoD Case Management, each 15 minutes 2017 RODRI PUCKETT [facility] Coordinated care fee, maintenance rate 2017 RODRI PUCKETT [facility] Case Management, each 15 minutes 2016 RODRI PUCKETT [facility] Coordinated care fee, maintenance rate 2016 RODRI PUCKETT [facility] Sleep Study Sleep Study 76579 2016 OLIVIER CODY [facility] Spectacles Services Fitting Monofocals (Not For Aphakia) Spectacles Services Fitting Monofocals (Not For Aphakia) 13120 2016 YARELY CASTILLO Determination Of Refractive State Determination Of Refractive State 78971 2016 YARELY CASTILLO Ophthalmological New Patient Start Comprehensive Care Ophthalmological New Patient Start Comprehensive Care [id number] 2016 YARELY CASTILLO [facility] Patient education, not otherwise cla ified, non-physician provider, group, per se ion 2016 SALAS PORTILLO [facility] Threshold Audiogram (Pure Tone) Threshold Audiogram (Pure Tone) 95683 2016 SALAS PORTILLO Psychiat Therapy Indiv Appr 20-30 Min W/ Med Eval [facility] Psychiat Therapy Indiv Appr 20-30 Min W/ Med Eval [facility] [id number] 2016 BENITA GALINDO Telehealth originating site facility fee 2016 BENITA GALINDO Psychiat Therapy Indiv Appr 20-30 Min W/ Med Eval [facility] Psychiat Therapy Indiv Appr 20-30 Min W/ Med Eval [facility] [id number] 2016 BENITA GALINDO Telehealth originating site facility fee 2016 BENITA GALINDO Immunization Administration One Vaccine Immunization Administration One Vaccine 81984 2016 MAKAYLA CRESPO [facility] Vaccines Viral Measles, Mumps and Rubella, Live Vaccines Viral Measles, Mumps and Rubella, Live 98661 2016 VADIM GOLD MMR; Series #: 1; .5 mL; SC; Right Arm; Mfg: [employer]; Lot: [id number]; VIS given (John: 10/27/11). [facility] Telehealth originating site facility fee 2016 BENITA GALINDO Psychiat Therapy Indiv Appr 20-30 Min W/ Med Eval [facility] Psychiat Therapy Indiv Appr 20-30 Min W/ Med Eval [facility] 65254 2016 BENITA GALINDO E DoD Telehealth originating site facility fee 2016 GALINDOBENITA E DoD Psychiat Therapy Indiv Appr 20-30 Min W/ Med Eval [facility] Psychiat Therapy Indiv Appr 20-30 Min W/ Med Eval [facility] [id number] 2016 BENITA GALINDO E DoD Telehealth originating site facility fee 2016 GALINDOBENITA E DoD Psychiat Therapy Indiv Appr 20-30 Min W/ Med Eval [facility] Psychiat Therapy Indiv Appr 20-30 Min W/ Med Eval Managemt [id number] 2016 BENITA GALINDO E DoD Telehealth originating site facility fee 2016 GALINDOBENITA E DoD Psychiat Therapy Indiv Appr 20-30 Min W/ Med Eval [facility] Psychiat Therapy Indiv Appr 20-30 Min W/ Med Eval Managem[facility] [id number] 2016 BENITA GALINDO E [facility] Telehealth originating site facility fee 2016 GALINDOBENITA E DoD Psychiat Therapy Indiv Appr 20-30 Min W/ Med Eval [facility] Psychiat Therapy Indiv Appr 20-30 Min W/ Med Eval [facility] [id number] 2016 JACKELIN ACEVEDO [facility] Immunization Administration One Vaccine Immunization Administration One Vaccine 43075 2016 KIEL KRAMER [facility] Injection, methylprednisolone acetate, 80 mg 2016 JE TOPETE [facility] Corticosteroid Inj Interlaminar Lumbar L5 - S1 Corticosteroid Inj Interlaminar Lumbar L5 - S1 [id number] 2016 JE TOPETE [facility] Psychiat Therapy Indiv Appr 20-30 Min W/ Med Eval Managemt Psychiat Therapy Indiv Appr 20-30 Min W/ Med Eval Managemt [id number] 2016 JACKELIN ACEVEDO [facility] Psychiat Therapy Indiv Appr 20-30 Min W/ Med Eval Managemt Psychiat Therapy Indiv Appr 20-30 Min W/ Med Eval Managemt [id number] 2016 JACKELIN ACEVEDO [facility] Most recent diastolic blood pre ure < 90 mm Hg 2015 VIVIAN CLEMENTE [facility] Most recent systolic blood pre ure < 140 mm Hg 2015 VIVIAN CLEMENTE [facility] Screening Test Of Visual Acuity, Quantitative, Bilateral Screening Test Of Visual Acuity, Quantitative, Bilateral 21936 2015 VIVIAN CLEMENTE [facility] Psychiat Therapy Indiv Appr 20-30 Min W/ Med Eval Managemt 2015 JACKELIN ACEVEDO [facility] Patient Counseling Medical Management Individual Patient Patient Counseling Medical Management Individual Patient [id number] 2015 RODRI DYE ABDULKADIR [facility] Psychiat Therapy Indiv Appr 20-30 Min W/ Med Eval Managemt 2015 MONIQUE ROSE [facility] Corticosteroid Inj Interlaminar Cervical C7 - T1 Corticosteroid Inj Interlaminar Cervical C7 - T1 [id number] 2015 JE TOPETE [facility] Psychiat Therapy Indiv Appr 20-30 Min W/ Med Eval Managemt 2015 JACKELIN ACEVEDO [facility] Corticosteroid Inj Interlaminar Cervical C7 - T1 Corticosteroid Inj Interlaminar Cervical C7 - T1 [id number] 2015 YONI LOWE [facility] Modalities Cryotherapy Cold Packs Modalities Cryotherapy Cold Packs 25320 2015 YONI LOWE [facility] Psychiat Therapy Indiv Appr 20-30 Min W/ Med Eval Managemt 2015 JACKELIN ACEVEDO [facility] Non-Physician Phone Call To Patient/Provider Brief (5-10min) Non-Physician Phone Call To Patient/Provider Brief (5-10min) [id number] 2015 EVELYNE MOULTON [facility] Psychiat Therapy Indiv Appr 20-30 Min W/ Med Eval Managemt 2015 JACKELIN ACEVEDO [facility] Most recent diastolic blood pre ure < 90 mm Hg 2014 COLLEEN HAQ [facility] Most recent systolic blood pre ure < 140 mm Hg 2014 COLLEEN HAQ [facility] Screening Test Of Visual Acuity, Quantitative, Bilateral Screening Test Of Visual Acuity, Quantitative, Bilateral 17078 2014 COLLEEN HAQ [facility] Psychiat Therapy Indiv Appr 20-30 Min W/ Med Eval Managemt 2014 JACKELIN ACEVEDO [facility] Immunization Administration One Vaccine Immunization Administration One Vaccine 80303 2014 YESY THOMSON [facility] Influenza Split Virus Vaccine Age 3+ Years Intramuscular 2014 CIERA THOMSONASH VEGAN [facility] Psychiat Therapy Indiv Appr 20-30 Min W/ Med Eval Managemt 2014 JACKELIN ACEVEDO [facility] Psychiat Therapy Indiv Appr 20-30 Min W/ Med Eval Managemt 2014 JACKELIN ACEVEDO [facility] Psychiat Therapy Indiv Appr 45-50 Min W/ Med Eval Managemt 2014 JACKELIN ACEVEDO Psychologic Testing And Report Administered By Physician Psychologic Testing And Report Administered By Physician [id number] 2014 PATRICA MARLEY [facility] Dangerousne A e ment Suicide Risk Dangerousness Assessment Suicide Risk [id number] 2014 PATRICA MARLEY Removal Of A Corneal Foreign Body Utilizing A Slit Lamp Removal Of A Corneal Foreign Body Utilizing A Slit Lamp 34613 2014 JAVIER ROLLINS Ophthalmological New Patient Start Intermediate Level Care Ophthalmological New Patient Start Intermediate Level Care 27724 2014 JAVIER ROLLINS Psychiat Therapy Indiv Appr 45-50 Min W/ Med Eval Managemt 2014 JACKELIN ACEVEDO [facility] Psychiatric Therapy Individual Approximately 45-50 Minutes 2014 SANDHYA LLAMAS [facility] Psychiat Therapy Indiv Appr 45-50 Min W/ Med Eval Managemt 2014 MEGAN CHICAS [facility] Psychiatric Therapy Individual Approximately 45-50 Minutes 2014 SANDHYA LLAMAS [facility] Psychiatric Therapy Individual Approximately 45-50 Minutes 2013 SANDHYA LLAMAS [facility] Psychiatric Therapy Individual Approximately 45-50 Minutes 2013 SANDHYA LLAMAS [facility] Psychiatric Therapy Individual Approximately 45-50 Minutes 2013 SANDHYA LLAMAS [facility] Most recent diastolic blood pre ure < 90 mm Hg 2013 FIDELIA CARABALLO Most recent systolic blood pre ure < 140 mm Hg 2013 FIDELIA CARABALOL Screening Test Of Visual Acuity, Quantitative, Bilateral Screening Test Of Visual Acuity, Quantitative, Bilateral 00864 2013 FIDELIA CARABALLO Psychiatric Therapy Individual Approximately 45-50 Minutes 2013 SANDHYA LLAMAS [facility] Vaccines Vaccines 23633 2013 SABRINABOB Influenza Split (Injectable - preservative free); Series #: 1; .5 mL; IM; Left Arm; Mfg: [employer]renda[employer]; Lot: [id number]; VIS given (John: 02/24/2014). DoD Immunization Administration One Vaccine Immunization Administration One Vaccine 65733 2013 BOB BENNETTSandrine [facility] Psychiatric Evaluation Comprehensive Examination Psychiatric Evaluation Comprehensive Examination 96068 2013 SANDHYA LLAMAS [facility] Psychiatric Therapy Individual Approximately 20-30 Minutes 2013 SANDHYA LLAMAS [facility] Psychiatric Evaluation Review of Records and Reports Psychiatric Evaluation Review of Records and Reports 26492 2013 SANDHYA LLAMAS [facility] Medical Nutrition Therapy Group (2 or More Individual(s)) Medical Nutrition Therapy Group (2 or More Individual(s)) 47782 2013 KODAK STEINBERG [facility] Psych Ther Inpt Indiv Appr 20-30 Min With Med Eval Man 2013 RADHA GARCIA [facility] Psychiatric Evaluation Psychiatric Evaluation 55651 2013 ABDULKADIR GLEZ [facility] Influenza Split Virus Vacc Age 3+ Years IM Preservative Free 2012 RANJANA REYES DoD Immunization Administration One Vaccine Immunization Administration One Vaccine 27934 2012 RANJANA REYES LATE ENTRY: Administered 2013 [facility] Screening Test Of Visual Acuity, Quantitative, Bilateral Screening Test Of Visual Acuity, Quantitative, Bilateral 37035 2012 SHADE ABDI [facility] Computerized Corneal Topography Computerized Corneal Topography 18811 2012 RAUL SOW [facility] Spectacles Services Fitting Monofocals (Not For Aphakia) Spectacles Services Fitting Monofocals (Not For Aphakia) 63305 2012 RAUL SOW [facility] Determination Of Refractive State Determination Of Refractive State 59305 2012 RAUL SOW [facility] Ophthalmological Prior Patient Start Comprehensive Care Ophthalmological Prior Patient Start Comprehensive Care [id number] 2012 RAUL SOW [facility] Ophthalmological Prior Patient Start Comprehensive Care Ophthalmological Prior Patient Start Comprehensive Care 30873 2012 MONICA URRUTIA [facility] Psychiat Therapy Indiv Appr 45-50 Min W/ Med Eval Managemt Psychiat Therapy Indiv Appr 45-50 Min W/ Med Eval Managemt 57551 2012 SIMRAN POLLARD [facility] Psychiatric Evaluation Comprehensive Examination Psychiatric Evaluation Comprehensive Examination 31661 2012 ISMRAN POLLARD [facility] Screening Test Of Visual Acuity, Quantitative, Bilateral Screening Test Of Visual Acuity, Quantitative, Bilateral 47966 2011 ANTONIO ROBERTS [facility] Influenza Split Virus Vaccine Age 3+ Years Intramuscular 2011 NORA JULIO Influenza Split Virus; Series #: 1; .5 mL; IM; Left Arm; Mfg: [employer]; Lot: [id number]; VIS given (John: 01/08/2012). [facility] Immunization Administration One Vaccine Immunization Administration One Vaccine 23753 2011 NORA JULIO [facility] Echo For Congenital Defects Transthoracic With M-Mode, Spectral, And Color Flow Echo For Congenital Defects Transthoracic With M-Mode, Spectral, And Color Flow 75735 2011 MIGUEL ANGEL BRITO [facility] ECG 12-Lead With Interpretation And Report ECG 12-Lead With Interpretation And Report 58330 2011 JE PEREZ Influenza Split Virus Vaccine Age 3+ Years Intramuscular 2010 JOSEY NIEVES INFLUENZA VACCINE ADMINISTERED TO LEFT DELTOID BY NEELA MARI VACCINE LOT NO#[id number] DoD Immunization Administration One Vaccine Immunization Administration One Vaccine 70737 2010 JOSEY NIEVES Screening Test Of Visual Acuity, Quantitative, Bilateral Screening Test Of Visual Acuity, Quantitative, Bilateral 69032 2010 JOSEY NIEVES Preventive Medicine Physical Exam Vital Signs Recorded Preventive Medicine Physical Exam Vital Signs Recorded 2010 JOSEY NIEVES Computerized Corneal Topography Computerized Corneal Topography 71470 2010 RODRIGUEZ BYRD Determination Of Refractive State Determination Of Refractive State 16642 2010 RODRIGUEZ BYRD Ophthalmological New Patient Start Comprehensive Care Ophthalmological New Patient Start Comprehensive Care 35021 2010 RODRIGUEZ BYRD Psychiatric Therapy Individual Approximately 20-30 Minutes Psychiatric Therapy Individual Approximately 20-30 Minutes 03161 2010 TIA BEY [facility] Psychiatric Therapy Individual Approximately 20-30 Minutes Psychiatric Therapy Individual Approximately 20-30 Minutes [id number] 2010 TIA BEY Determination Of Refractive State Determination Of Refractive State 57369 2010 EPIFANIO TUCKER Ophthalmological New Patient Start Comprehensive Care Ophthalmological New Patient Start Comprehensive Care 19317 2010 EPIFANIO TUCKER Spectacles Services Fitting Monofocals (Not For Aphakia) Spectacles Services Fitting Monofocals (Not For Aphakia) 05146 2010 EPIFANIO TUCKER Audiometry Group Testing Audiometry Group Testing 90170 2009 MASON LEWIS Skin Test Anergy tuberculin Skin Test Anergy tuberculin 64857 2009 CHINO BAER Typhoid Vaccine Vi Capsular Polysaccharide, For Intramus Use Typhoid Vaccine Vi Capsular Polysaccharide, For Intramus Use 56271 2009 CHINO BAER Immunization Administration One Vaccine Immunization Administration One Vaccine 85393 2009 CHINO BAER Audiometry Group Testing Audiometry Group Testing 12528 2008 [facility] MAXIMINO KINNEY Extensive Color Vision Testing Extensive Color Vision Testing 84193 2007 CIRILO HERNANDES Screening Test Of Visual Acuity, Quantitative, Bilateral Screening Test Of Visual Acuity, Quantitative, Bilateral 32159 2007 PARKCIRILO Typhoid Vaccine Vi Capsular Polysaccharide, For Intramus Use Typhoid Vaccine Vi Capsular Polysaccharide, For Intramus Use 57175 2007 MARIE MUSA Immunization Administration Each Additional Vaccine 2007 MARIE MUSA Skin Test Anergy tuberculin Skin Test Anergy tuberculin 38175 2007 MARIE MUSA Immunization Administration One Vaccine Immunization Administration One Vaccine 63532 2007 MARIE MUSA [facility]ometry Group Testing Audiometry Group Testing 98340 2007 FAUZIA SEVILLA Prescription & Fitting Bilateral Corneal Lenses (Not Aphakia Prescription & Fitting Bilateral Corneal Lenses (Not Aphakia 42457 2007 MALINDA SANDOVAL Modalities Heat Hot Packs Modalities Heat Hot Packs 21429 2006 EIKEY, KARTIK M x 15min to right upper trap and superior medial scapula and c-spine. Pnt tolerated RX. Cont plan as directed. DoD Modalities Electrical Stimulation Unattended Modalities Electrical Stimulation Unattended 92432 2006 EIKEY, KARTIK M x 15min to right upper trap and superior medial scapula. Pnt tolerated RX. Cont plan as directed. DoD Traction Cervical Frame Attach Hdboard Traction Cervical Frame Attach Hdboard 30435 2006 EIKEY, KARTIK M x 15min of ICT with 22lbs on and 11lbs off. Pnt tolerated RX. Cont plan as directed. DoD Modalities Heat Hot Packs Modalities Heat Hot Packs 64207 2006 COUTINO, SELINA x 15 minutes to left neck/trap with estim and to neck with traction. Pnt. timmy. Rx well. Cont. Rx plan as directed. DoD Modalities Electrical Stimulation Unattended Modalities Electrical Stimulation Unattended 22875 2006 COUTINO, SELINA x 15 minutes of IFC to left neck/trap. Pnt. timmy. Rx well. Cont. Rx plan as directed. DoD Traction Cervical Frame Attach Hdboard Traction Cervical Frame Attach Hdboard 02581 2006 COUTINO, SELINA x 15 minutes of ICT with 20 lbs. on and 10 lbs. off. Pnt. timmy. Rx well. Cont. Rx plan as directed. DoD Modalities Heat Hot Packs Modalities Heat Hot Packs 98839 2006 EIKEY, KARTIK M x 15min to left superior medial scapula and c-spine. Pnt tolerated RX. Cont plan as directed. DoD Traction Cervical Frame Attach Hdboard Traction Cervical Frame Attach Hdboard 78769 2006 EIKEY, KARTIK M x 15min of ICT with 15lbs on and 7lbs off. Pnt tolerated RX. Cont plan as directed. DoD Modalities Electrical Stimulation Unattended Modalities Electrical Stimulation Unattended 34822 2006 EIKEY, KARTIK M x 15min of HVGS to left superior medial scapula. Pnt tolerated RX. Cont plan as directed. Teagan [employer]-Supervised Services Provision Of Educational Supplies -Supervised Services Provision Of Educational Supplies [address]Supervised Services Provision Of Special Supplies -Supervised Services Provision Of Special Supplies 23934 2006 BHAVIN FLORES [facility] Physical Medicine Physical Therapy Re-Evaluation Physical Medicine Physical Therapy Re-Evaluation 84273 2006 BHAVIN FLORES DoD Modalities Heat Hot Packs Modalities Heat Hot Packs 23378 2006 EIKEY, KARTIK M x 20min to left upper trap and medial superior border of scapula. Pnt tolerated RX. Cont plan as directed. DoD Physical Therapy Ma age Physical Therapy Massage 74833 2006 EIKEY, KARTIK M x 5min to left medical border of scapula. Pnt tolerated RX. Cont plan as directed. DoD Modalities Electrical Stimulation Unattended Modalities Electrical Stimulation Unattended 04677 2006 EIKEY, KARTIK M x 20min og HVGS to left upper trap and medial superior border of scapula. Pnt tolerated RX. Cont plan as directed. DoD Modalities Heat Hot Packs Modalities Heat Hot Packs 08951 2006 EIKEY, KARTIK M x 15min to upper trap and superior medial border of scpaula. Pnt tolerated RX. Cont plan as directed. DoD Modalities Electrical Stimulation Unattended Modalities Electrical Stimulation Unattended 34418 2006 EIKEY, KARTIK M x 15min of HVGS to left upper trap and superior medial border of scapula. Pnt tolerated RX. Cont plan as directed. DoD Modalities Heat Hot Packs Modalities Heat Hot Packs 04597 2006 EIKEY, KARTIK M x 10min prior to RX, followed by 15min with HVGS. Pnt tolerated RX. Cont plan as directed. DoD Modalities Electrical Stimulation Unattended Modalities Electrical Stimulation Unattended 89369 2006 EIKEY, KARTIK M x 15min of HVGS to left upper trap and medial superior border of scapula. DoD Modalities Heat Hot Packs Modalities Heat Hot Packs 52696 2006 EIKEY, KARTIK M x 15min of HVGS to left upper trap an d medial anterior scapula. Pnt tolerated RX. Cont plan as directed. DoD Modalities Electrical Stimulation Unattended Modalities Electrical Stimulation Unattended 66177 2006 EIKEY, KARTIK M x 15min of HVGS to left upper trap an d medial anterior scapula. Pnt tolerated RX. Cont plan as directed. [facility] Physical Medicine Physical Therapy Evaluation Physical Medicine Physical Therapy Evaluation 85545 2006 BHAVIN FLORES [facility] Osteopathic Manip Treatment (OMT) 3-4 Body Regions Involved Osteopathic Manip Treatment (OMT) 3-4 Body Regions Involved 57612 2006 EPIFANIO PIMENTEL Prescription & Fitting Bilateral Corneal Lenses (Not Aphakia Prescription & Fitting Bilateral Corneal Lenses (Not Aphakia 86291 2006 OMAR HERNADEZ Determination Of Refractive State Determination Of Refractive State 15017 2006 OMAR HERNADEZ Ophthalmological Prior Patient Start Comprehensive Care Ophthalmological Prior Patient Start Comprehensive Care 91164 2006 OMAR HERNADEZ Determination Of Refractive State Determination Of Refractive State 79371 2005 OMAR HERNADEZ Ophthalmological Prior Patient Start Intermediate Level Care Ophthalmological Prior Patient Start Intermediate Level Care 24017 2005 OMAR HERNADEZ Immunization Administration One Vaccine Immunization Administration One Vaccine 03882 2005 VERONICA DYSON Skin Test Anergy tuberculin Skin Test Anergy tuberculin 70981 2005 VERONICA DYSON Spectacles Services Fitting Monofocals (Not For Aphakia) Spectacles Services Fitting Monofocals (Not For Aphakia) 69232 2005 OMAR HERNADEZ Determination Of Refractive State Determination Of Refractive State 58987 2005 OMAR HERNADEZ Ophthalmological New Patient Start Comprehensive Care Ophthalmological New Patient Start Comprehensive Care [address]Supervised Services Provision Of Educational Supplies -Supervised Services Provision Of Educational Supplies [address]Supervised Services Provision Of Special Supplies -Supervised Services Provision Of Special Supplies [address]Supervised Group Educational Services [address] Services Analysis Of Computerized Data Special [employer] Services Analysis Of Computerized Data 65042 2005 FAUZIA SEVILLA Threshold Audiogram (Pure Tone) Threshold Audiogram (Pure Tone) 23475 2005 FAUZIA SEVILLA [facility] Audiometry Group Testing Audiometry Group Testing 70936 2005 FAUZIA SEVILLA [facility] Typhoid Vaccine Vi Capsular Polysaccharide, For Intramus Use Typhoid Vaccine Vi Capsular Polysaccharide, For Intramus Use 99126 2005 VERONICA DYSON [facility] Skin Test Anergy tuberculin Skin Test Anergy tuberculin 41090 2005 VERONICA DYSON [facility] Immunization Administration One Vaccine Immunization Administration One Vaccine 96383 2005 VERONICA DYSON [facility] Destruction Of Benign Lesion By Any Method 15 Or More Lesion 2005 SUMMER RODRIGUEZ [facility] Avulsion Of Nail Plate - One Avulsion Of Nail Plate - One 21030 2005 BEATRIS OLIVAS [facility] Social History Combined list of available smoking, tobacco, and other social history from Department of 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 Social History Type Response Date Comment Sour e Tobacco smoking status NHIS VA-TOBACCO FORMER USER 11/22/2022 [facility] History of tobacco use VA-TOBACCO QUIT 5 TO < 15 YRS 11/22/2022 [facility] History of tobacco use VA-TOBACCO FORMER USER 12/09/2021 [facility] History of tobacco use VA-TOBACCO QUIT 5 TO < 15 YRS 09/01/2019 [facility] History of tobacco use VA-TOBACCO NEVER USED 06/06/2019 [facility] History of tobacco use VA-TOBACCO QUIT 15 YRS OR MORE 05/07/2018 [facility] This section is an empty social history section. [facility] Plan of Care List of future care activities from Department of 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 Additional future care activities may be listed in the Assessment and Plan section. Date/Time Care Activity Care Activity Detail Facili ty 11/27/2024 AMBULATORY - MEDICINE AMBULATORY - MEDICI NE [facility]
--- OUTSIDE RECORDS SUMMARY | 2024-11-13 17:58 | XMS_ITS | Encounter Summary ---
Author Name [facility] [place] [facility] Address [address] [place] [address] Care Team Providers Care Sash Finisher Name Role Phone ANAMICHAEL ERIK Primary Care Provider Unavailabl e HERMAN PECK Primary Care Provider Unavailabl e Selected Encounter This section includes the information on record at [place] for the Encounter. Date/Time Encounter Type Encounter Description Reason Pro vider Source November 29, 2023 11:35 AM Outpatient Encounter ADMIN PAT ACTIVTIES (MASNONCT) IHE Encounter Template Text not used by [place] Plan of Treatment: Future Appointments (+ 6 months) and Future Tests (+/- 45 days) The Plan of Treatment section includes future care activities for the patient from all [place] treatmentfacilities. This section includes future appointments and future orders which are active, pending or scheduled. Future Appointments This section includes appointments that were scheduled to occur 6 months from the date of the Encounter, up to a maximum of 20 appointments. The data comes from all [place] treatment facilities. Appointment Date/Time Appointment Type Appointme nt Facility Name December 04, 2023 09:00 AM [facility] December 05, 2023 02:30 PM AMBUL[facility]ORY - NONE [facility] Feb 11, 2024 03:00 PM AMBULATORY - NONE [facility] Encounter Notes: All associated encounter notes This section contains the clinical notes associated to the Encounter. Date/Time Encounter Note(s) Provider Source November 29, 2023 11:35 AM ADMINISTRATIVE NOT E: LOCAL TITLE: CLERICAL/ADMIN NOTE STANDARD TITLE: ADMINISTRATIVE NOTE DATE OF NOTE: NOVEMBER 29, 2023@11:35 ENTRY DATE: NOVEMBER 29, 2023@11:35:06 AUTHOR: VINICIO JORDAN EXP COSIGNER: URGENCY: STATUS: COMPLETED pain lower left side bernardo per pts req NIGEL DEN STEMay 2023@09:00 THEA /shahida/ vinicio jordan ex assistant/program director Signed: 11/29/2023 11:35 [facility]
--- OUTSIDE RECORDS SUMMARY | 2024-11-13 17:58 | XMS_ITS | Encounter Summary ---
Author Name [facility] [place] [facility] [place] Address [address] [place] [address] Care Team Providers Care Collection Specialist Name Role Phone ANAMICHAEL ERIK Primary Care Provider Unavailabl e HERMAN PECK Primary Care Provider Unavailabl e Selected Encounter This section includes the information on record at [place] for the Encounter. Date/Time Encounter Type Encounter Description Reason Pro vider Source Feb 06, 2024 06:14 AM Outpatient Encounter ADMIN PAT ACTIVTIES (MASNONCT) IHE Encounter Template Text not used by [place] Plan of Treatment: Future Appointments (+ 6 months) and Future Tests (+/- 45 days) The Plan of Treatment section includes future care activities for the patient from all [place] treatmentfacilities. This section includes future appointments and future orders which are active, pending or scheduled. Future Appointments This section includes appointments that were scheduled to occur 6 months from the date of the Encounter, up to a maximum of 20 appointments. The data comes from all [place] treatment facilities. Appointment Date/Time Appointment Type Appointme nt Facility Name Feb 11, 2024 03:00 PM AMBULATORY - NONE HUGH Collins [facility] Jun 11, 2024 01:15 PM AMBULATORY - MEDICINE YANET FRANCOIS [facility] Active, Pending, and Scheduled Orders This section includes a listing of several types of active, pending, and scheduled orders, including clinic medications orders, diagnostic test orders, procedure orders and consult orders; where the start date of the order is 45 days before the date of the Encounter or 45 days after the date of theEncounter. The data comes from all [place] treatment facilities. Test Date/Time Test Type Test Details Facility Name Feb 20, 2024 12:00 AM Laboratory - Chemi stry Order OCCULT BLOOD FIT X1 SCREEN STOOL FECES SP ONCE [facility] Lab Results: +/- 30 days of the encounter This section includes the Chemistry and Hematology Lab Results on record with [place] for the patient. Radiology Reports and Pathology Reports are provided separately, in subsequent sections. Lab Results This section contains the Chemistry/Hematology Results that were resulted 30 days before or 30 daysafter the date of the Encounter. Date/Time Source Result Type Result - Unit Interpretation Reference Range Specimen Type Comment Feb 07, 2024 11:13 AM [facility] WN DRUG SCREEN IN-HOUSE ROUTINE URINE [...] Feb 06, 2024 08:48 AM Reporting Lab: [address] [id number] Performing Lab: [address] [address] TETRAHYDROCANNABINOL SCREEN POS AMPHETAMINE SCR NEG BARBITURATES SCR NEG BENZODIAZEPINES SCR NEG COCAINE METABOLITE SCR NEG OPIATES SCR NEG METHADONE SCR NEG OXYCODONE SCR NEG Encounter Notes: All associated encounter notes This section contains the clinical notes associated to the Encounter. Date/Time Encounter Note(s) Provider Source Feb 07, 2024 02:45 PM ADDENDUM: LOCAL TITLE: Addendum STANDARD TITLE: ADDENDUM DATE OF NOTE: FEB 07, 2024@14:45:25 ENTRY DATE: FEB 07, 2024@14:45:25 AUTHOR: JAROCHO PENA EXP COSIGNER: URGENCY: STATUS: COMPLETED UDS +THC and thus unable to refill. Will defer to PCP upon return. Thanks /es/ JAROCHO PENA D.O. STAFF PHYSICIAN Signed: 02/07/2024 14:46 Receipt Acknowledged By: 02/07/2024 16:25 /shahida/ ELIA HOGAN Registered Nurse --- Original Document --- 02/06/24 CONTROLLED SUBSTANCE RENEWAL REQUEST: Rx requested - ambien Last fill date - 01/06/24 Progress Note Date Title Author (and Author's Title) SEP 24, 2023@13:24 PC PROGRESS NOTE HERMAN PECK (PRIMARY CARE ST TRAV/PDMP Progress Note Date Title Author (and Author's Title) DEC 10, 2023@08:33:01STATE PRESCRIPTION ROLANDO HERMAN PECK (PRIMARY CARE ST No data available for: NALOXONE NALOXONE AUTOINJECTOR IM RESCUE NALOXONE NASAL RESCUE 4MG NALOXONE NASAL RESCUE 8MG NALOXONE NASAL RESCUE Mail ID signer [place] alert sent to HERMAN PECK, Primary Care Provider Comments: DRUG SCREEN: ONLY Drug Screens within the prior 12 months will be listed Drug Screen: No data available /beatriz OBRIEN CLINICAL SALESPERSON [employer] Signed: 02/06/2024 06:14 Receipt Acknowledged By: 02/06/2024 08:45 /beatriz PENA D.O. STAFF PHYSICIAN for HERMAN Grady PECK 02/06/2024 ADDENDUM STATUS: COMPLETED Controlled med and no UDS in past yr. Needs UDS prior to any refills. /beatriz PENA D.O. STAFF PHYSICIAN Signed: 02/06/2024 08:48 Receipt Acknowledged By: 02/07/2024 08:26 /shahida/ ELIA HOGAN Registered Nurse 02/07/2024 ADDENDUM STATUS: UNSIGNED You may not VIEW this UNSIGNED Addendum. JAROCHO PENA-CDD [facility] Feb 06, 2024 08:47 AM ADDENDUM: LOCAL TITLE: Addendum STANDARD TITLE: ADDENDUM DATE OF NOTE: FEB 06, 2024@08:47:40 ENTRY DATE: FEB 06, 2024@08:47:41 AUTHOR: JAROCHO PENAIGNER: URGENCY: STATUS: COMPLETED Controlled med and no UDS in past yr. Needs UDS prior to any refills. /beatriz PENA D.O. STAFF PHYSICIAN Signed: 02/06/2024 08:48 Receipt Acknowledged By: 02/07/2024 08:26 /shahida/ ELIA HOGAN Registered Nurse --- Original Document --- 02/06/24 CONTROLLED SUBSTANCE RENEWAL REQUEST: Rx requested - ambien Last fill date - 01/06/24 Progress Note Date Title Author (and Author's Title) SEP 24, 2023@13:24 PC PROGRESS NOTE HERMAN PECK (PRIMARY CARE [facility]/PDMP Progress Note Date Title Author (and Author's [...] listed Drug Screen: No data available /beatriz OBRIEN CLINICAL SALESPERSON [employer] Signed: 02/06/2024 06:14 Receipt Acknowledged By: 02/06/2024 08:45 /beatriz PENA D.O. STAFF PHYSICIAN for JAROCHO [facility] Feb 06, 2024 06:15 AM PHARMACY NOTE: LOCAL TITLE: SIGNATURE READY PHARMACY RENEWAL NOTE STANDARD TITLE: PHARMACY NOTE DATE OF NOTE: FEB 06, 2024@06:15 ENTRY DATE: FEB 06, 2024@06:15:36 AUTHOR: MICAH,BOB T EXP COSIGNER: URGENCY: STATUS: COMPLETED Signature Ready Order Progress Note Date Title Author (and Author's Title) SEP 24, 2023@13:24 PC PROGRESS NOTE HERMAN PECK (PRIMARY CARE ST 1) Rx#: aluminum hexahydrate 2) Rx#: 3) Rx#: 4) Rx#: 5) Rx#: Original Prescriber: [facility] received request via: /beatriz OBRIEN CLINICAL SALESPERSON [employer] Signed: 02/06/2024 06:15 BOB OBRIEN-D [facility] Feb 06, 2024 06:14 AM PHARMACY MEDICATIO N MGT NOTE: LOCAL TITLE: CONTROLLED SUBSTANCE RENEWAL REQUEST STANDARD TITLE: PHARMACY MEDICATION MGT NOTE DATE OF NOTE: FEB 06, 2024@06:14 ENTRY DATE: FEB 06, 2024@06:14:15 AUTHOR: BOB OBRIEN EXP COSIGNER: URGENCY: STATUS: COMPLETED CONTROLLED SUBSTANCE RENEWAL REQUEST Has ADDENDA Rx requested - ambien Last fill date - 01/06/24 Progress Note Date Title Author (and Author's Title) SEP 24, 2023@13:24 PC PROGRESS NOTE HERMAN PECK (PRIMARY CARE ST TRAV/PDMP Progress Note Date Title Author (and Author's Title) DEC 10, 2023@08:33:01STATE PRESCRIPTION ROLANDOHERMAN JAUREGUI (PRIMARY CARE ST No data available for: NALOXONE NALOXONE AUTOINJECTOR IM RESCUE NALOXONE NASAL RESCUE 4MG NALOXONE NASAL RESCUE 8MG NALOXONE NASAL RESCUE Mail ID signer [facility] alert sent to HERMAN PECK, Primary Care Provider Comments: DRUG SCREEN: ONLY Drug Screens within the prior 12 months will be listed Drug Screen: No data available /beatriz OBRIEN CLINICAL SALESPERSON [employer] Signed: 02/06/2024 06:14 Receipt Acknowledged By: 02/06/2024 08:45 /shahida/ JAROCHO PENA D.O. STAFF PHYSICIAN for HERMAN PECK 02/06/2024 ADDENDUM STATUS: COMPLETED Controlled med and no UDS in past yr. Needs UDS prior to any refills. /beatriz PENA D.O. STAFF PHYSICIAN Signed: 02/06/2024 08:48 Receipt Acknowledged By: 02/07/2024 08:26 /shahida/ ELIA HOGAN Registered Nurse 02/07/2024 ADDENDUM STATUS: COMPLETED UDS +THC and thus unable to refill. Will defer to PCP upon return. Thanks /shahida/ JAROCHO PENA D.O. STAFF PHYSICIAN Signed: 02/07/2024 14:46 Receipt Acknowledged By: 02/07/2024 16:25 /beatriz HOGAN Registered Nurse 02/07/2024 ADDENDUM STATUS: COMPLETED called to discuss the updated POC he voiced an understanding /shahida/ ELIA HOGAN Registered Nurse Signed: 02/07/2024 16:25 BOB OBRIEN-JONATAND [facility]
--- OUTSIDE RECORDS SUMMARY | 2024-11-13 17:59 | XMS_ITS | Encounter Summary ---
Author Name [facility] [place] Organization [facility] [place] Address [address] [place] [address] Care Team Providers Care Cvt Rn Name Role Phone ANAMICHAEL ERIK Primary Care Provider Unavailabl e HERMAN PECK Primary Care Provider Unavailabl e Selected Encounter This section includes the information on record at [place] for the Encounter. Date/Time Encounter Type Encounter Description Reason Pro vider Source Jan 16, 2024 08:47 AM Outpatient Encounter ADMIN PAT ACTIVTIES (MASNONCT) IHE Encounter Template Text not used by [place] Plan of Treatment: Future Appointments (+ 6 months) and Future Tests (+/- 45 days) The Plan of Treatment section includes future care activities for the patient from all [place] treatmentfacilities. This section includes future appointments and future orders which are active, pending or scheduled. Future Appointments This section includes appointments that were scheduled to occur 6 months from the date of the Encounter, up to a maximum of 20 appointments. The data comes from all [place] treatment facilities. Appointment Date/Time Appointment Type Appointme nt Facility Name Feb 11, 2024 03:00 PM AMBULATORY - NONE HUGH Collins [facility] Jun 11, 2024 01:15 PM AMBULATORY - MEDICINE YANET FRANCOIS [facility] Active, Pending, and Scheduled Orders This section includes a listing of several types of active, pending, and scheduled orders, including clinic medications orders, diagnostic test orders, procedure orders and consult orders; where the start date of the order is 45 days before the date of the Encounter or 45 days after the date of theEncounter. The data comes from all [place] treatment facilities. Test Date/Time Test Type Test Details Facility Name Feb 20, 2024 12:00 AM Laboratory - Chemi stry Order OCCULT BLOOD FIT X1 SCREEN STOOL FECES SP ONCE [facility] Lab Results: +/- 30 days of the encounter This section includes the Chemistry and Hematology Lab Results on record with [place] for the patient. Radiology Reports and Pathology Reports are provided separately, in subsequent sections. Lab Results This section contains the Chemistry/Hematology Results that were resulted 30 days before or 30 daysafter the date of the Encounter. Date/Time Source Result Type Result - Unit Interpretation Reference Range Specimen Type Comment Feb 07, 2024 11:13 AM [facility] WN DRUG SCREEN IN-HOUSE ROUTINE URINE Specimen [...] Feb 06, 2024 08:48 AM Reporting Lab: [address] [id number] Performing Lab: [address] [address] TETRAHYDROCANNABINOL SCREEN POS AMPHETAMINE SCR NEG BARBITURATES SCR NEG BENZODIAZEPINES SCR NEG COCAINE METABOLITE SCR NEG OPIATES SCR NEG METHADONE SCR NEG OXYCODONE SCR NEG Encounter Notes: All associated encounter notes This section contains the clinical notes associated to the Encounter. Date/Time Encounter Note(s) Provider Source Jan 16, 2024 08:47 AM ADMINISTRATIVE NOT E: LOCAL TITLE: CLERICAL/ADMIN NOTE STANDARD TITLE: ADMINISTRATIVE NOTE DATE OF NOTE: JAN 16, 2024@08:47 ENTRY DATE: JAN 16, 2024@08:47:06 AUTHOR: KEVON ORME COSIGNER: URGENCY: STATUS: COMPLETED [place] called dental clinic front desk manager to schedule routine dental exam. Scheduled the following per veterans dd/t: NIGEL HERNANDEZ Feb 11, 2024@15:00. Letter mailed. /shahida/ Kevon Rome MSA Signed: 01/16/2024 08:53 KEVON ROME-[facility]AND [facility]
--- OUTSIDE RECORDS SUMMARY | 2024-11-13 17:59 | XMS_ITS ---
Author Name [facility] [place] Organization [facility] [place] Address [address] [place] [address] Care Team Providers Care Automotive Starter Repairer Name Role Phone ANAMICHAEL ERIK Primary Care Provider Unavailabl e HERMAN PECK Primary Care Provider Unavailabl e Selected Encounter This section includes the information on record at [place] for the Encounter. Date/Time Encounter Type Encounter Description Reason Pro vider Source Aug 27, 2024 01:27 PM Outpatient Encounter ADMIN PAT ACTIVTIES (MASNONCT) IHE Encounter Template Text not used by [place] Plan of Treatment: Future Appointments (+ 6 months) and Future Tests (+/- 45 days) The Plan of Treatment section includes future care activities for the patient from all [place] treatmentfacilities. This section includes future appointments and future orders which are active, pending or scheduled. Future Appointments This section includes appointments that were scheduled to occur 6 months from the date of the Encounter, up to a maximum of 20 appointments. The data comes from all [place] treatment facilities. Appointment Date/Time Appointment Type Appointme nt Facility Name November 27, 2024 04:00 PM [facility] Encounter Notes: All associated encounter notes This section contains the clinical notes associated to the Encounter. Date/Time Encounter Note(s) Provider Source Aug 27, 2024 01:27 PM PRIMARY CARE RAFI RS: LOCAL TITLE: PC LETTER FOLLOW UP/PAST RECALL/INACTIVE STANDARD TITLE: PRIMARY CARE LETTERS DATE OF NOTE: AUG 27, 2024@13:27 ENTRY DATE: AUG 27, 2024@13:27:16 AUTHOR: MASON REYEZ EXP COSIGNER: URGENCY: STATUS: COMPLETED [address] [id number] [address] Mr. KAYA HEWITT [address] [place] [address] AUG 27, 2024 Dear Mr. KAYA HEWITT, Our Records indicate you are past due for an appointment in primary care. We value you as a patient, and are concerned about your overall health. Patients are encouraged to see their Primary Care Provider annually to maintain their health care needs. If you would like to be seen and maintain enrollment in Primary Care, please contact our Telephone Care Program at or local [phone] to schedule an appointment. If you do not wish to be seen, please call the same number listed above, and let us know. We look forward to hearing from you soon. Sincerely, /shahida/ MASON REYEZ ADVANCED LABEL DESIGNER Patient Record Number [id number] MASON REYEZ-CDD [facility]
--- OUTSIDE RECORDS SUMMARY | 2024-11-13 17:59 | XMS_ITS ---
Author Name [facility] [place] [facility] [place] [facility] [place] Address [address] [place] [address] Care Team Providers Care Silk Finisher Name Role Phone ANAMICHAEL ERIK Primary Care Provider Unavailabl e HERMAN PECK Primary Care Provider Unavailabl e Selected Encounter This section includes the information on record at [place] for the Encounter. Date/Time Encounter Type Encounter Description Reason Pro vider Source Dec 09, 2023 09:36 AM Outpatient Encounter ADMIN PAT ACTIVTIES (MASNONCT) [...] 11, 2024 03:00 PM AMBULATORY - NONE [facility] Encounter Notes: All associated encounter notes This section contains the clinical notes associated to the Encounter. Date/Time Encounter Note(s) Provider Source Dec 09, 2023 09:36 AM PHARMACY MEDICATIO N MGT NOTE: LOCAL TITLE: CONTROLLED SUBSTANCE RENEWAL REQUEST STANDARD TITLE: PHARMACY MEDICATION MGT NOTE DATE OF NOTE: DEC 09, 2023@09:36 ENTRY DATE: DEC 09, 2023@09:36:42 AUTHOR: GALILEA HALE EXP COSIGNER: URGENCY: STATUS: COMPLETED Rx requested - GABAPENTIN 300MG CAP Last fill date - 11/08/23 Progress Note Date Title Author (and Author's Title) SEP 24, 2023@13:24 PC PROGRESS NOTE HERMAN PECK (PRIMARY CARE [facility]/PDMP Progress Note Date Title Author (and Author's Title) OCT 08, 2023@13:21:48STATE PRESCRIPTION ROLANDO HERMAN PECK (PRIMARY CARE ST No data available for: NALOXONE NALOXONE AUTOINJECTOR IM RESCUE NALOXONE NASAL RESCUE 4MG NALOXONE NASAL RESCUE 8MG NALOXONE NASAL RESCUE Mail ID signer [place] alert sent to HERMAN PECK, Primary Care Provider Comments: DRUG SCREEN: ONLY Drug Screens within the prior 12 months will be listed Drug Screen: No data available /beatriz HALE Security Checker (clinical research tech) Signed: 12/09/2023 09:37 Receipt Acknowledged By: 12/10/2023 08:33 /beatriz Peck MD Primary Care Physician GALILEA HALE-MELANIE [facility]
[2024-11-13 18:24] VITALS: PULSE 61; O2SAT 98
--- NOTE | 2024-11-13 18:28 | PC.NURSE ---
called radiology about xray order in
--- NOTE | 2024-11-13 19:05 | PC.NURSE ---
pt roomed to 11 at this time
--- NOTE | 2024-11-13 19:27 | XR_ITS ---
PROCEDURE INFORMATION: Exam: XR Left Tibia and Fibula Exam date and time: 11/13/2024 7:34 PM Age: 49 years old Clinical indication: Injury or trauma; Fall; Other: Pain; Additional info: Distal tibia fracture TECHNIQUE: Imaging protocol: Radiologic exam of the left tibia and fibula. Views: 2 views. COMPARISON: CR XR ANKLE LT MIN 3V 11/13/2024 6:21 PM FINDINGS: Bones/joints: Posterior malleolus of the tibia fracture with unchanged displacement . Soft tissues: Moderate soft tissue swelling at the fracture site. IMPRESSION: Posterior malleolus of the tibia fracture with unchanged displacement.
[2024-11-13] MEDS: OXYCODONE 5MG IMMEDIATE RELEASE TABLET 5 MG PO (19:29)
--- NOTE | 2024-11-13 19:34 | ED_ITS ---
Discharge Plan Disposition Patient Disposition: Home, Self-Care Condition: Good Prescriptions Prescriptions: New oxycodone 5 mg tablet 5 mg PO Q6H PRN (Reason: pain) Qty: 12 0RF No Action sertraline 100 MG tablet 100 mg PO DAILY meclizine 25 MG tablet 25 mg PO DAILYP PRN (Reason: Vertigo) gabapentin 300 MG capsule 300 mg PO BID zolpidem 10 MG tablet 10 mg PO HS Referrals Follow up/Referrals: Dejuan Joy DO [Staff Physician] - See instructions (posterior mal fx) Olga Eden MD [Primary Care Provider] - See instructions Activity Restrictions/Add. Instructions Additional Instructions/Restrictions: Take Tylenol and ibuprofen every 6 hours and use the oxycodone as needed for severe breakthrough pain. Do not put any weight on your left leg until you are seen in clinic by orthopedic surgery. Keep the leg elevated when you are not up and walking around. Call the orthopedic surgery office tomorrow to schedule the appointment in the next week. Please return to ED if your symptoms worsen, [place] in location, change in severity, new symptoms develop or if you become concerned for your health. Clinical Impressions Clinical Impression: Ankle fracture Qualifiers: Encounter type: initial encounter Fracture type: closed Laterality: left Qualified Code(s): S82.892A - Other fracture of left lower leg, initial encounter for closed fracture Instructions Patient Instructions: DI for Ankle Fracture, How to Take Care of Your Splint Print Language Print Language: [place] Discharge ED Provider: Augusta Leiva General Adult HPI General Chief complaint: Extremity Injury, Lower Stated complaint: AO 11/13/24 1600 left ankle injury Time Seen by Provider: 11/13/24 19:15 Mode of Arrival: Wheelchair Source of Information: Patient Description of Symptoms (Recalled from ER Triage Doc. by RN): pt to the ED with left ankle pain after slipping and falling on the way to his truck. pt denies any head or neck injury History of Present Illness HPI narrative: Toño Corey is a 49 y/o male presenting with ankle pain. Pt slipped on grass and rolled his ankle. He had immediate pain and was unable to ambulate or bear weight. Patient denies numbness or weakness. Patient denies hitting his head or losing consciousness. Patient denies knee or hip pain. Related Data Home Medications ?Medication ?Instructions ?Recorded ?Confirmed gabapentin 300 mg capsule 300 mg PO BID Pain 01/22/20 01/22/20 meclizine 25 mg tablet 25 mg PO DAILYP PRN Vertigo 01/22/20 01/22/20 sertraline 100 mg tablet 100 mg PO DAILY Anxiety 01/22/20 01/22/20 zolpidem 10 mg tablet 10 mg PO HS Insomnia 01/22/20 01/22/20 Previous Rx's ?Medication ?Instructions ?Recorded oxycodone 5 mg tablet 5 mg PO Q6H PRN pain #12 tabs 11/13/24 Allergies Allergy/AdvReac Type Severity Reaction Status Date / Time No Known Allergies Allergy Verified 01/22/20 14:09 [facility] Disclaimer: The information contained in this section may have been updated after the patient was seen, as this information can be updated by other users. Social History Smoking Status: Never smoker alcohol intake: never current occupational status: other Travel in the last 8 weeks?: None Have you lived/traveled outside [place] in past 30 days?: No Contact w/someone who lives/traveled outside [place] past 30 days?: No Exposure to someone with infectious disease in past 14 days?: No Do you have a fever (greater than 100.4 F or 38 C)?: No Have you tested positive for COVID-19?: No Exposed to someone with COVID-19 in past 14 days?: No Do you have a sore throat?: No Do you have a cough?: No Do you have any weakness?: No Do you have any diarrhea?: No Are you experiencing any unusual bleeding?: No Do you have any muscle aches/pain?: No Do you have any abdominal pain?: No Are you experiencing loss of taste or smell?: No ROS Obtained: Yes All systems reviewed & no additional complaints except as documented Physical Exam General General appearance: alert and in no apparent distress Head Head exam: atraumatic Respiratory Respiratory exam: Present normal lung sounds bilaterally Cardiovascular Cardiovascular exam: Present regular rate and normal rhythm Abdominal Exam Abdominal exam: Present soft; Absent distention or tenderness exam: Present deferred Extremities Exam Extremities exam: Present tenderness, normal capillary refill, joint swelling and other (Tenderness primarily over the medial malleolus of the left foot. Palpable 2+ DP pulse on the left. ROM of toes intact. ROM of the ankle limited secondary to pain.); Absent full ROM or edema Neurological Exam Neurological exam: Present alert and oriented X3 Skin Skin exam: Present warm and dry Medical Decision Making Medical Records Medical records reviewed: Yes I reviewed the patient's medical records. Screening: Per USPSTF and CDC recommendations, given the prevalence of disease in our region, it is our hospital?s policy to screen for HIV and viral Hepatitis for all patients aged 18 and over and those with ongoing risk factors. Abilio Inquiry Pt receiving controlled substance: Yes Abilio was queried for this patient: Yes Risks and benefits of using a controlled substance: were discussed with pt by me Vital Signs: 11/13/24 17:48 11/13/24 18:24 11/13/24 21:24 Temperature 98.9 F 98 F Temperature Source Oral Pulse Rate 61 86 Pulse Rate [Left Radial] 66 Respiratory Rate 17 20 Blood Pressure 134/79 Blood Pressure [Right Arm] 135/88 Blood Pressure Mean [Right Arm] 103 Blood Pressure Source [Right Arm] Automatic Cuff Blood Pressure Position [Right Arm] Sitting 02 Sat by Pulse Oximetry 99 98 Oxygen Delivery Method Room Air Room Air Orders (Tests/Meds): ED MEDICATIONS Discontinued Medications Generic Name Dose Route Start Last Admin Trade Name Freq PRN Reason Stop Dose Admin Oxycodone HCl 5 mg 11/13/24 19:26 11/13/24 19:29 Oxycodone 5mg Immediate Release Tablet PO 11/13/24 19:27 5 mg ONCE ONE Administration ORDERS Category Date Time Status Ankle XR - Left minimum 3 Views [XR ankle LT min 3V] Exams 11/13/24 17:52 Completed Stat XR tibia fibula LT 2V Stat Exams 11/13/24 19:27 Completed Medical Decision Narrative: In summary, this is a 49-year-old male presenting with left ankle injury. Differential diagnosis includes but is not limited to, fracture, dislocation, neurovascular injury, muscle strain. Patient is reevaluated with x-ray of left ankle and tib-fib. Pain control with oxycodone. I personally reviewed patient's x-rays which demonstrated a posterior distal tibia fracture with slight displacement. No dislocation of the ankle joint. No additional fractures in the remaining tibia or fibula. I discussed the patient with orthopedic surgery who recommended a posterior splint and follow-up in clinic next week. Patient was placed in a splint, given crutches and referred to orthopedic surgery clinic. Patient advised to keep splint clean and dry. Patient given pain control recommendations with Tylenol, ibuprofen and prescribed oxycodone. All questions answered and patient was discharged in stable condition. Augusta Leiva MD Critical Care Critical Care Time Critical Care Time: No
[2024-11-13 21:24] VITALS: BP 134/79; PULSE 86; RESP 20; TEMP 36.6; O2SAT 100
== END 2024-11-13 21:25 | disposition home or self-care (01) ==
PROVIDERS: Emergency Provider Student in an Organized Health Care Education/Training Program; PCP Internal Medicine
DX: S82.51XA Displaced fracture of medial malleolus of right tibia, initial encounter for closed fracture (principal); M25.572 Pain in left ankle and joints of left foot; W01.10XA Fall on same level from slipping, tripping and stumbling with subsequent striking against unspecified object, initial encounter
CPT/HCPCS: 29515; 73590; 73610; 99284